=== PATIENT | female | born 1955 | race Caucasian/White ===

== ENCOUNTER 2025-02-16 09:03 | Outpatient (REF) | payer MEDICARE, BC, SELFPAY ==
--- OUTSIDE RECORDS SUMMARY | 2025-02-16 11:14 | XMS_ITS | Encounter Summary ---
Author Organization [facility] Address [address] [place] [address] Phone Care Team Providers Care Wound/Ostomy Nurse Name Role Phone Dhirajdevanazar Laurie Heart DO Primary Care Provider Jacquelin Long MD Primary Care Provider + Greg Castaneda DO Primary Care Provider [phone] Meagan Bowers MD Primary Care Provider [phone] Encounter Details Date Type Department Care Team (Latest Contact Info) Description 02/21/2023 Transcribe Orders Virtual Department [address] [place] [address] Jacquelin Long MD [address] [place], [place] [phone] [email or web address] Asymptomatic menopausal state (Primary Dx) Social History Tobacco Use Types Packs/Day Years Used Date Smoking Tobacco: Former Cigarettes 3 5 0 01/20/1977 - 01/20/1982 Smokeless Tobacco: Never Alcohol Use Standard Drinks/Week Comments Yes 2 (1 standard drink = 0.6 oz pur e alcohol) Education Answer Date Recorded Are you interested in more education? Not on anne e 10/07/2022 Are you concerned about learning? Not on file 10/07/2022 No 10/07/2022 No 10/07/2022 Digital Access Answer Date Recorded No 10/28/2022 No 10/28/2022 Reliable internet access at home? Not on file 10/28/2022 Device with a working camera? Not on file Comments No Sex and Gender Information Value Date Recorded Sex Assigned at Female 01/20/2019 12:37 PM EDT Legal Sex Female 12:43 PM EDT Gender Identity Female 01/20/2019 12:37 PM EDT Sexual Orientation Not on file documented as of this encounter Plan of Treatment Not on file documented as of this encounter Visit Diagnoses Diagnosis Asymptomatic menopausal state- Primary documented in this encounter Additional Health Concerns Infection Onset Date Last Indicated Resolved Time CoV-Risk 01/25/2024 01/25/2024 02/05/2024 1:22 AM EDT documented as of this encounter Care Teams Wound/Ostomy Nurse Relationship Specialty Start Date End Date Laurie Estrada DO [address] [place] [address] PCP - General Internal Medicine 12/24/16 10/14/23 Jacquelin Long MD [address] [place] [phone] [email or web address] PCP - General Family Medicine 10/15/23 08/12/24 Greg Castaneda DO [address] [place] [address] PCP - General Internal Medicine 08/13/24 09/18/24 Meagan Bowers MD [address] [place] [address] [email or web address] PCP - General Family Medicine 09/19/24 documented as of this encounter Additional Source Comments The information contained in this document represents components of the legal health record. It is not the complete legal health record.[facility]
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
--- OUTSIDE RECORDS SUMMARY | 2025-02-16 11:15 | XMS_ITS | Encounter Summary ---
Author Organization [facility] Address [address] [place] [phone] Phone Care Team Providers Care Shell Assembler Name Role Phone Meagan Bowers MD Primary Care Provider Encounter Details Date Type Department Care Team (Late st Contact Info) Description 09/19/2024 Procedure Pass [facility], Ct Scan - [address] [address] Social History Tobacco Use Types Packs/Day Years [...] your housing situation today? I have suresh avila 09/19/2024 How many times have you move [...] 12:16 AM EDT Verona Navarro RN * [place] Suicide Severity Rating Scale (Screener/Recent Self-Report) Question Answer Date of Assessment Author 1. Wish to be (Past 1 Month) No 09/19/2024 12:16 AM EDT Verona Navarro RN 2. Non-Specific Active Suici mitchell Thoughts (Past 1 Month) No 09/19/2024 12:16 AM EDT Andrade Navarro RN 6. Suicidal Behavior (Lifetime) No 12:16 AM EDT Verona Navarro RN documented as of this encounter Plan of Treatment Not on file documented as of this encounter Visit Diagnoses Not on filedocumented in this encounter Care Teams Shell Assembler Relationship Specialty Start Date End Date Meagan Bowers MD [address] [place] [phone] [email or web address] PCP - General Family Medicine 09/19/24 documented as of this encounter Additional Source Comments The information contained in this document represents components of the legal health record. It is not the complete legal health record.[facility]
--- OUTSIDE RECORDS SUMMARY | 2025-02-16 11:15 | XMS_ITS | Encounter Summary ---
Author Organization [facility] Address [address] [place] [address] [place] [address] Phone Care Team Providers Care Pump Room Operator Name Role Phone Jacquelin Long MD Primary Care Provider + Greg Castaneda DO Primary Care Provider [phone] Meagan Bowers MD Primary Care Provider Encounter Details Date Type Department Care Team (Latest Contact Info) Description 07/31/2024 Transcribe Orders [facility] Laboratory [address] [place] [address] [phone] Flor Fuller NP [address] [place], [place] [phone] [email or web address] Fatty liver (Primary Dx); Nonspecific abnormal results of liver function study; Iron deficiency anemia secondary to blood loss (chronic) Social History Tobacco Use Types Packs/Day Years [...] got money to buy more. Never True 10/15/2023 Within the past 6 months the food we bought just didn't last and we didn't have enough money to get more. Never True Digital Access Answer Date Recorded No 10/28/2022 No 10/28/2022 Reliable internet access at home? Not on file 10/28/2022 Device with a working camera? Not on file Intimate Partner Violence Answer Date R ecorded Are you denied basic needs s uch as food, clothing, or medical care? No 01/25/2024 In the past 12 months have y ou been in a relationship with a person who hurts, threatens, or tries to control you? No 01/25/2024 Are you denied basic needs s uch as food, clothing, or medical care? No 01/25/2024 In the past 12 months have y ou been in a relationship with a person who hurts, threatens, or tries to control you? No 01/25/2024 Comments No Sex and Gender Information Value Date Recorded Sex Assigned at Female 01/20/2019 12:37 PM EDT Legal Sex Female 12:43 PM EDT Gender Identity Female 01/20/2019 12:37 PM EDT Sexual Orientation Not on file documented as of this encounter Plan of Treatment Not on file documented as of this encounter Results * Phosphatidylethanol (07/31/2024 10:25 AM EST) PEth 16:0/18:1 (POPEth) by LC-MS/MS <10 Cutoff: 10 ng/mL [facility] Comment: (NOTE) Phosphatidylethanol (PEth) homologues result interpretation PEth 16:0/18:1 (POPEth) Less than 10 ng/mL: Not detected 10 - 19 ng/mL: Abstinence or light alcohol consumption (<2 drinks per day for several days a week) 20 - 200 ng/mL: Moderate alcohol consumption (up to 4 drinks per day for several days a week) Greater than 200 ng/mL: Heavy alcohol consumption or chronic alcohol use (at least 4 drinks per day several days a week) (Reference: Alpa Weeks and Janice Mathis 2018 J. Forensic Sci) PEth 16:0/18:2 (PLPEth) by LC-MS/MS <10 Cutoff: 10 ng/mL [facility] Comment: (NOTE) PEth 16:0/18:2 (PLPEth) Reference ranges are not well established PEth Interpretation Negative. [facility] Comment: (NOTE) ADDITIONAL INFORMATION This report is intended for use in clinical monitoring and management of patients. It is not intended for use in employment-related testing. This test was developed and its performance characteristics determined by [facility] in a manner consistent with CLIA requirements. This test has not been cleared or approved by the U.S. Food and Drug Administration. Blood 07/31/2024 10:2 5 AM EST 07/31/2024 10:34 AM EST Flor Fuller NP LAB BLOOD ORDERABLES Final Result [facility] [address] [place] [address] * (ABNORMAL) Vitamin B12 (07/31/2024 10:25 AM EST) Pathologist [facility] VITAMIN B12 1,563(H) 232 - 1,245 pg/mL [facility] Blood 07/31/2024 10:2 5 AM EST 07/31/2024 10:33 AM EST Flor Fuller NP LAB BLOOD ORDERABLES Final Result Performing Organization Address City/[facility]/ZIP Co de Phone Number [facility] [address] [place] [address] * PT-INR (07/31/2024 10:25 AM EST) Pathologist [facility] PT 10.4 10.2 - 12.9 sec [facility] INR 0.9 0.9 - 1.1 [facility] Comment:Therapeutic range fo r oral Vitamin K antagonists: 2.0-3.5 Blood 07/31/2024 10:2 5 AM EST 07/31/2024 10:33 AM EST Flor Fuller CHILD DEVELOPMENT PROFESSOR LAB BLOOD ORDERABLES Final Result Performing Organization Address City/[facility]/ZIP Co de Phone Number [address] [address] * (ABNORMAL) Ferritin (07/31/2024 10:25 AM EST) FERRITIN 403(H) 13 - 150 ug/L [facility] Blood 07/31/2024 10:2 5 AM EST 07/31/2024 10:33 AM EST Flor Fuller CHILD DEVELOPMENT PROFESSOR LAB BLOOD ORDERABLES Final Result Performing Organization Address [facility]/ZIP Co de Phone Number [address] [address] * (ABNORMAL) Folate (07/31/2024 10:25 AM EST) FOLIC ACID >20.0(H) 4.2 - 19.9 ng/mL [facility] Blood 07/31/2024 10:2 5 AM EST 07/31/2024 10:33 AM EST Flor Fuller CHILD DEVELOPMENT PROFESSOR LAB BLOOD ORDERABLES Final Result Performing Organization Address [facility]/ZIP Co de Phone Number [address] [address] * (ABNORMAL) Iron and iron binding capacity (07/31/2024 10:25 AM EST) IRON 155 30 - 160 ug/dL [facility] IRON BINDING CAPACITY 241 228 - 428 ug/dL [facility] TRANSFERRIN SATURAT. 64(H) 15 - 50 % [facility] Blood 07/31/2024 10:2 5 AM EST 07/31/2024 10:33 AM EST Flor Rodgers Jonny CHILD DEVELOPMENT PROFESSOR LAB BLOOD ORDERABLES Final Result Performing Organization Address [facility] Co de Phone Number [address] [address] * LFTs (hepatic panel) (07/31/2024 10:25 AM EST) ALKALINE PHOSPHATASE 96 39 - 117 U/L [facility] TOTAL BILIRUBIN 0.6 0.0 - 1.2 mg/dL [facility] DIRECT BILIRUBIN 0.2 0.0 - 0.2 mg/dL [facility] Bilirubin (Indirect) 0.4 0 - 1.5 mg/dL [facility] AST 36 0 - 37 U/L [facility] ALT 33 0 - 40 U/L [facility] TOTAL PROTEIN 7.7 6.5 - 8.0 g/dL [facility] ALBUMIN 4.0 3.9 - 4.8 g/dL [facility] GLOBULIN 3.7 1 - 4.8 g/dL [facility] A/G Ratio 1.08 1.00 - 4.80 RATIO [facility] Blood 07/31/2024 10:2 5 AM EST 07/31/2024 10:33 AM EST Flor Fuller CHILD DEVELOPMENT PROFESSOR LAB BLOOD ORDERABLES Final Result Performing Organization Address [facility] Co de Phone Number [address] [address] * (ABNORMAL) Liver fibrosis test (07/31/2024 10:25 AM EST) Fibrosis score 0.43 [facility] Interpretation (Fibrosis) SEE NOTE [facility] Comment: (NOTE) minimal fibrosis Fibro Test Score (f) Metavir Score f>=0 and f<=0.21 : F0 (no fibrosis) f>0.21 and f<=0.27 : F0-F1 (no fibrosis) f>0.27 and f<=0.31 : F1 (minimal fibrosis) f>0.31 and f<=0.48 : F1-F2 (minimal fibrosis) f>0.48 and f<=0.58 : F2 (moderate fibrosis) f>0.58 and f<=0.72 : F3 (advanced fibrosis) f>0.72 and f<=0.74 : F3-F4 (advanced fibrosis) f>0.74 and f<=1.00 : F4 (severe fibrosis) HCV Fibrosis Grade SEE NOTE Q [facility] Comment: (NOTE) Result: F1-F2 NECROINFLAMM SCORE 0.20 Q [facility] NECROINFLAMM GRADE SEE NOTE Q [facility] Comment: (NOTE) Result: A0-A1 NECROINFLAMM INTERP SEE NOTE [facility] [employer]/ [facility] Comment: (NOTE) no activity ActiTest Score (a) Metavir Score a>=0 and a<=0.17 : A0 (no activity) a>0.17 and a<=0.29 : A0-A1 (no activity) a>0.29 and a<=0.36 : A1 (minimal activity) a>0.36 and a<=0.52 : A1-A2 (minimal activity) a>0.52 and a<=0.60 : A2 (significant activity) a>0.60 and a<=0.62 : A2-A3 (significant activity) a>0.62 and a<=1.00 : A3 (severe activity) A2 Macroglobulin 285(H) 106 - 279 mg/dL [facility] Haptoglobin 123 43 - 212 mg/dL [facility] Apolipoprotein A1 140 101 - 198 mg/dL [facility] TOTAL BILIRUBIN 0.5 0.2 - 1.2 mg/dL [facility] GGT 24 3 - 65 U/L [facility] ALT 33(H) 6 - 29 U/L [facility] [employer]/ [facility] Specimen/Product ID [id number] [facility] [employer]/ [facility] Comments (Chemistry) SEE NOTE [facility]/ [facility] Comment: (NOTE) The reliability of results is dependent on compliance with the preanalytical and analytical conditions recommended by [employer]. The tests have to be deferred for: acute hemolysis, acute hepatitis, acute inflammation, extra hepatic cholestasis. The advice of a specialist should be sought for interpretation in chronic hemolysis and Gilbert's syndrome. The test interpretation is not validated in liver transplant patients. Isolated extreme values of one of the components should lead to caution in interpreting the results. In case of discordance between a biopsy result and a test, it is recommended to seek the advice of a specialist. The causes of these discordances could be due to a flaw of the test or to a flaw in the biopsy: i.e. a liver biopsy has a 33% variability rate for one fibrosis stage. FibroTest is interpretable for chronic hepatitis B and C, alcoholic and non alcoholic steatosis. ActiTest is interpretable for chronic hepatitis B and C. The performance characteristics have been determined by [facility]. It has not been cleared or approved by the U.S. Food and Drug Administration. Performance characteristics refer to the analytical performance of the test. The [employer], the associated logo, [employer] and all associated [employer] reyes are the registered trademarks of [employer]. All third republican reyes - (R) and (TM) - are the property of their respective owners. (C) 5090-5025 [employer]. All rights reserved. Blood 07/31/2024 10:2 5 AM EST 07/31/2024 10:34 AM EST Flor Fuller NP LAB BLOOD ORDERABLES Final Result [facility] [employer] [facility] [address] [place] [address], [facility] [phone] * (ABNORMAL) CBC and differential (07/31/2024 10:25 AM EST) WBC 5.34 4.00 - 11.00 K/uL [facility] RBC 4.67 4.00 - 5.20 M/uL [facility] HGB 14.6 12.0 - 16.0 g/dL [facility] HCT 41.8 36.0 - 46.0 % [facility] PLT 211 150 - 450 K/uL [facility] MCV 89.5 80.0 - 100.0 fL [facility] MCH 31.3(H) 27.0 - 31.0 pg [facility] MCHC 34.9 32.0 - 36.0 g/dL [facility] RDW 12.8 11.5 - 14.5 % [facility] MPV 10.1 8.4 - 12.0 fL [facility] NRBC 0.00 0.00 /100 WBCs [facility] ABSOLUTE NRBC 0.00 0.00 K/uL [facility] DIFF METHOD Auto [facility] NEUTS 68.4 48.0 - 76.0 % [facility] LYMPHS 24.9 18.0 - 41.0 % [facility] MONOS 5.4 4.0 - 11.0 % [facility] EOS 0.4 0.0 - 5.0 % [facility] BASOS 0.7 0.0 - 1.5 % [facility] Granulocytes, immature (%) 0.2 0.0 - 0.9 % [facility] ABSOLUTE NEUTS 3.65 1.92 - 7.60 K/uL [facility] ABSOLUTE LYMPHS 1.33 0.72 - 4.10 K/uL [facility] ABSOLUTE MONOS 0.29 0.16 - 1.10 K/uL [facility] ABSOLUTE EOS 0.02 0.00 - 0.50 K/uL [facility] ABSOLUTE BASOS 0.04 0.00 - 0.15 K/uL [facility] Granulocytes, immature 0.01 0.00 - 0.09 K/uL [facility] Blood 07/31/2024 10:2 5 AM EST 07/31/2024 10:33 AM EST us Flor Fuller NP LAB BLOOD ORDERABLES Final Result [facility] [address] [place] [address] documented in this encounter Visit Diagnoses Diagnosis Fatty liver- Primary Other chronic nonalcoholic liver disease Nonspecific abnormal results of liver function study Iron deficiency anemia secondary to blood loss (chronic) documented in this encounter Care Teams Pump Room Operator Relationship Specialty Start Date End Date Jacquelin Long MD [email or web address] PCP - General Family Medicine 10/15/23 08/12/24 Greg Castaneda DO [address] [place] [address] PCP - General Internal Medicine 08/13/24 09/18/24 Meagan Bowers MD [address] [place] [address] [email or web address] PCP - General Family Medicine 09/19/24 documented as of this encounter Additional Source Comments The information contained in this document represents components of the legal health record. It is not the complete legal health record.[facility]
--- OUTSIDE RECORDS SUMMARY | 2025-02-16 11:15 | XMS_ITS | Encounter Summary ---
Author Organization [facility] Address [address] [place] [address] Phone Care Team Providers Care Sock Drier Name Role Phone Laurie Estrada DO Primary Care Provider [phone] Laurie Estrada DO Unavailable Jacquelin Long MD Primary Care Provider + Greg Castaneda DO Primary Care Provider [phone] Meagan Bowers MD Primary Care Provider Encounter Details Date Type Department Care Team (Latest Contact Info) Description 09/09/2017 Transcribe Orders [facility] 10 [facility] 2nd [place] [address] Bolivar Arteaga MD [address] [address] [email or web address] Lower GI bleeding (Primary Dx) Social History Tobacco Use Types Packs/Day Years Used Date Smoking Tobacco: Never Comments Unknown Sex and Gender Information Value Date Recorded Sex Assigned at Female 01/20/2019 12:37 PM EDT Legal Sex Female 12:43 PM EDT Gender Identity Female 01/20/2019 12:37 PM EDT Sexual Orientation Not on file documented as of this encounter Plan of Treatment Not on file documented as of this encounter Results * Ferritin (09/09/2017 3:14 PM EDT) FERRITIN 21 13 - 150 ug/L [facility] Blood 09/09/2017 3:14 PM EDT 09/09/2017 3:18 PM EDT us Bolivar Arteaga MD LAB BLOOD ORDERABLES Final R esult [address] [address] * (ABNORMAL) Iron and iron binding capacity (09/09/2017 3:14 PM EDT) IRON 33 30 - 160 ug/dL [facility] IRON BINDING CAPACITY 510(H) 228 - 428 ug/dL [facility] TRANSFERRIN SATURAT. 6(L) 15 - 50 % [facility] Blood 09/09/2017 3:14 PM EDT 09/09/2017 3:18 PM EDT us Bolivar Arteaga MD LAB BLOOD ORDERABLES Final R esult [address] [address] * (ABNORMAL) CBC and differential (09/09/2017 3:14 PM EDT) WBC 4.63 3.40 - 11.20 K/uL [facility] RBC 3.54(L) 3.80 - 4.80 M/uL [facility] HGB 10.5(L) 12.0 - 15.0 g/dL [facility] HCT 32.5(L) 36.0 - 46.0 % [facility] PLT 248 130 - 400 K/uL [facility] MCV 91.8 79.0 - 98.0 fL [facility] MCH 29.7 27.0 - 34.8 pg [facility] MCHC 32.3 31.5 - 36.0 g/dL [facility] RDW 13.5 10.8 - 14.6 % [facility] MPV 10.0 9.4 - 12.4 fl [facility] NRBC 0.00 /100 WBCs [facility] ABSOLUTE NRBC 0.00 K/uL [facility] DIFF METHOD Auto [facility] NEUTS 59.9 45.30 - 77.70 % [facility] LYMPHS 30.2 12.30 - 39.70 % [facility] MONOS 8.2 4.10 - 12.80 % [facility] EOS 1.1 0 - 7.2 % [facility] BASOS 0.6 0 - 2.80 % [facility] Granulocytes, immature (%) 0.0 0.0 - 0.9 % [facility] ABSOLUTE NEUTS 2.77 1.40 - 7.70 K/uL [facility] ABSOLUTE LYMPHS 1.40 0.60 - 3.20 K/uL [facility] ABSOLUTE MONOS 0.38 0.11 - 0.59 K/uL [facility] ABSOLUTE EOS 0.05 0.01 - 0.50 K/uL [facility] ABSOLUTE BASOS 0.03 0.00 - 0.08 K/uL [facility] Granulocytes, immature 0.00 0.00 - 0.05 K/uL [facility] Blood 09/09/2017 3:14 PM EDT 09/09/2017 3:18 PM EDT us Bolivar Arteaga MD LAB BLOOD ORDERABLES Final R esult Performing Organization Address City/State/[facility] Co de Phone Number [facility] [address] [place] [address] documented in this encounter Visit Diagnoses Diagnosis Lower GI bleeding- Primary Unspecified, hemorrhage of gastrointestinal tract documented in this encounter Additional Health Concerns Infection Onset Date Last Indicated Resolved Time CoV-Risk 01/25/2024 01/25/2024 02/05/2024 1:22 AM EDT documented as of this encounter Care Teams Sock Drier Relationship Specialty Start Date End Date Laurie Estrada DO [address] [place] [phone] PCP - General Internal Medicine 12/24/16 10/14/23 Jacquelin Long MD [address] [place] [address] [place] [address] [email or web address] PCP - General Family Medicine 10/15/23 08/12/24 Greg Castaneda DO [address] [place] [address] PCP - General Internal Medicine 08/13/24 09/18/24 Meagan Bowers MD [address] [place] [address] [email or web address] PCP - General Family Medicine 09/19/24 Laurie Estrada DO [address] [place] [address] [place] [address] Insurance Assigned Provider 10/05/17 02/07/19 documented as of this encounter Additional Source Comments The information contained in this document represents components of the legal health record. It is not the complete legal health record.[facility]
--- OUTSIDE RECORDS SUMMARY | 2025-02-16 11:15 | XMS_ITS | Encounter Summary ---
Author Organization [facility] Address [address] [facility] [address] [place] [address] Phone Care Team Providers Care Victims Advocate Clerk/Specialist Name Role Phone Jacquelin Long MD Primary Care Provider + Greg Castaneda DO Primary Care Provider [phone] Meagan Bowers MD Primary Care Provider Encounter Details Date Type Department Care Team (Late st Contact Info) Description 12/28/2023 Procedure Pass [facility] Endoscopy Admitting Dept Virtual Department [address] [place], [place] [phone] Social History Tobacco Use Types Packs/Day Years Used Date Smoking Tobacco: Former Cigarettes 3 5 0 01/20/1977 - 01/20/1982 Smokeless Tobacco: Never Alcohol Use Standard Drinks/Week Comments Yes 2 (1 standard drink = 0.6 oz pur e alcohol) Home Health Assessment: Transportation Answer Date Recorded Lack of Transportation (Medical) No 12/31/2023 Lack of Transportation (Non-Medical) No 12/31/2023 Patient Unable or Declines to Respond No 12/31/2023 Education Answer Date Recorded Are you interested [...] documented as of this encounter Care Teams Victims Advocate Clerk/Specialist Relationship Specialty Start Date End Date Jacquelin Long MD [email or web address] PCP - General Family Medicine 10/15/23 08/12/24 Greg Castaneda DO [address] [place] [address] PCP - General Internal Medicine 08/13/24 09/18/24 Meagan Bowers MD [address] [place] [address] [email or web address] PCP - General Family Medicine 09/19/24 documented as of this encounter Additional Source Comments The information contained in this document represents components of the legal health record. It is not the complete legal health record.[facility]
--- OUTSIDE RECORDS SUMMARY | 2025-02-16 11:15 | XMS_ITS | Encounter Summary ---
Author Organization [facility] Address [address] [facility] [address] [place] [address] Phone Care Team Providers Care Offal Baler Name Role Phone Meagan Bowers MD Primary Care Provider Encounter Details Date Type Department Care Team (Late st Contact Info) Description 09/21/2024 Procedure Pass [place] Admitting Dept - Virtual Department [address] [place] [address] Social History Tobacco Use Types Packs/Day Years [...] on filedocumented in this encounter Care Teams Offal Baler Relationship Specialty Start Date End Date Meagan Bowers MD [address] [place] [address] PCP - General Family Medicine 09/19/24 documented as of this encounter Additional Source Comments The information contained in this document represents components of the legal health record. It is not the complete legal health record.[facility]
--- OUTSIDE RECORDS SUMMARY | 2025-02-16 11:15 | XMS_ITS | Encounter Summary ---
Author Organization [facility] Address [address] [facility] [address] [place] [address] Phone Care Team Providers Care Line Production Cook Name Role Phone Jacquelin Long MD Primary Care Provider + Greg Castaneda DO Primary Care Provider [phone] Meagan Bowers MD Primary Care Provider Encounter Details Date Type Department Care Team (Late st Contact Info) Description 12/28/2023 Procedure Pass [facility], Ct Scan - [address] [phone] Social History Tobacco Use Types Packs/Day Years [...] documented as of this encounter Care Teams Line Production Cook Relationship Specialty Start Date End Date Jacquelin Long MD [email or web address] PCP - General Family Medicine 10/15/23 08/12/24 Greg Castaneda DO [address] [place] [address] PCP - General Internal Medicine 08/13/24 09/18/24 Meagan Bowers MD [address] [place] [address] [email or web address] PCP - General Family Medicine 09/19/24 documented as of this encounter Additional Source Comments The information contained in this document represents components of the legal health record. It is not the complete legal health record.[facility]
--- OUTSIDE RECORDS SUMMARY | 2025-02-16 11:15 | XMS_ITS | Encounter Summary ---
Author Organization [facility] Address [address] [place] [address] Phone Care Team Providers Care Hospital Chief Executive Officer Name Role Phone Laurie Estrada DO Primary Care Provider Laurie Estrada DO Unavailable [phone] Jacquelin Long MD Primary Care Provider + Greg Castaneda DO Primary Care Provider Meagan Bowers MD Primary Care Provider Encounter Details Date Type Department Care Team (Latest Contact Info) Description 01/20/2019 Transcribe Orders Virtual Department 30 [place] [address] Laurie Estrada DO [address] [place] [address] [email or web address] Intra-abdominal and pelvic swelling, mass and lump, unspecified site (Primary Dx) Social History Tobacco Use Types Packs/Day Years Used Date Smoking Tobacco: Former Cigarettes 3 5 0 01/20/1977 - 01/20/1982 Smokeless Tobacco: Never Alcohol Use Standard Drinks/Week Comments Not Currently 7 (1 standard drink = 0.6 oz pur e alcohol) Comments Unknown Sex and Gender Information Value Date Recorded Sex Assigned at Female 01/20/2019 12:37 PM EDT Legal Sex Female 12:43 PM EDT Gender Identity Female 01/20/2019 12:37 PM EDT Sexual Orientation Not on file documented as of this encounter Plan of Treatment Not on file documented as of this encounter Visit Diagnoses Diagnosis Intra-abdominal and pelvic swelling, mass and lump, unspecified site- Primary documented in this encounter Additional Health Concerns Infection Onset Date Last Indicated Resolved Time CoV-Risk 01/25/2024 01/25/2024 02/05/2024 1:22 AM EDT documented as of this encounter Care Teams Hospital Chief Executive Officer Relationship Specialty Start Date End Date Laurie Estrada DO [address] [place] [address] PCP - General Internal Medicine 12/24/16 10/14/23 [place] [address] [email or web address] PCP - General Family Medicine 10/15/23 08/12/24 Greg Castaneda DO [address] [place] [address] PCP - General Internal Medicine 08/13/24 09/18/24 Meagan Bowers MD [address] [place] [address] [email or web address] PCP - General Family Medicine 09/19/24 [place] [address] Insurance Assigned Provider 10/05/17 02/07/19 documented as of this encounter Additional Source Comments The information contained in this document represents components of the legal health record. It is not the complete legal health record.[facility]
--- OUTSIDE RECORDS SUMMARY | 2025-02-16 11:15 | XMS_ITS | Encounter Summary ---
Author Organization [facility] Address [address] [place] [address] Phone Care Team Providers Care Rides Supervisor Name Role Phone Laurie Estrada DO Primary Care Provider [phone] Jacquelin Long MD Primary Care Provider + Greg Castaneda DO Primary Care Provider Meagan Bowers MD Primary Care Provider Encounter Details Date Type Department Care Team (Late st Contact Info) Description 11/24/2021 Procedure Pass [facility] Endoscopy Admitting Dept Virtual Department 30 [place], [place] [phone] Social History Tobacco Use Types Packs/Day Years Used Date Smoking Tobacco: Former Cigarettes 3 5 0 01/20/1977 - 01/20/1982 Smokeless Tobacco: Never Alcohol Use Standard Drinks/Week Comments Yes 2 (1 standard drink = 0.6 oz pur e alcohol) Comments No Sex and Gender Information Value [...] documented as of this encounter Care Teams Rides Supervisor Relationship Specialty Start Date End Date Laurie Estrada DO [address] [place] [address] PCP - General Internal Medicine 12/24/16 10/14/23 Jacquelin Long MD [address] [place] [address] [email or web address] PCP - General Family Medicine 10/15/23 08/12/24 Greg Castaneda DO [address] [place] [address] PCP - General Internal Medicine 08/13/24 09/18/24 Meagan Bowers MD [address] [place] [address] [email or web address] PCP - General Family Medicine 09/19/24 documented as of this encounter Additional Source Comments The information contained in this document represents components of the legal health record. It is not the complete legal health record.[facility]
--- OUTSIDE RECORDS SUMMARY | 2025-02-16 11:15 | XMS_ITS | Encounter Summary ---
Author Organization [facility] Address [address] [place] [address] Phone Care Team Providers Care Chief Engineer Waterworks Name Role Phone Laurie Estrada DO Primary Care Provider [phone] Laurie Estrada DO Unavailable [phone] Jacquelin Long MD Primary Care Provider + Greg Castaneda DO Primary Care Provider Meagan Bowers MD Primary Care Provider Encounter Details Date Type Department Care Team (Late st Contact Info) Description 01/21/2019 Procedure Pass [facility] Endoscopy Admitting Dept Virtual Department 30 [place] [address] Social History Tobacco Use Types Packs/Day Years [...] documented as of this encounter Care Teams Chief Engineer Waterworks Relationship Specialty Start Date End Date Laurie Estrada DO [address] [place] [address] PCP - General Internal Medicine 12/24/16 10/14/23 Jacquelin Long MD [address] [place] [address] [place] [address] [email or web address] PCP - General Family Medicine 10/15/23 08/12/24 Greg Castaneda DO [address] [place] [address] PCP - General Internal Medicine 08/13/24 09/18/24 Meagan Bowers MD [address] [place] [address] [email or web address] PCP - General Family Medicine 09/19/24 Laurie Estrada DO [address] [place] [address] [place] [address] Insurance Assigned Provider 10/05/17 02/07/19 documented as of this encounter Additional Source Comments The information contained in this document represents components of the legal health record. It is not the complete legal health record.[facility]
--- OUTSIDE RECORDS SUMMARY | 2025-02-16 11:15 | XMS_ITS | Encounter Summary ---
Author Organization [facility] Address [address] [place] [address] Phone Care Team Providers Care Hospital Chaplain Name Role Phone Laurie Estrada DO Primary Care Provider [phone] Laurie Estrada DO Unavailable [phone] Jacquelin Long MD Primary Care Provider + Greg Castaneda DO Primary Care Provider Meagan Bowers MD Primary Care Provider [phone] Encounter Details Date Type Department Care Team (Late st Contact Info) Description 10/11/2017 Procedure Pass [facility] Endoscopy Admitting Dept [facility] Department [address] [place] [address] Social History Tobacco Use Types Packs/Day Years Used Date Smoking Tobacco: Never Smokeless Tobacco: Never Alcohol Use Standard Drinks/Week Comments Yes 7 (1 standard drink = 0.6 oz [...] as of this encounter Care Teams Hospital Chaplain Relationship Specialty Start Date End Date Laurie Estrada DO [address] [place] [address] PCP - General Internal Medicine 12/24/16 10/14/23 Jacquelin Long MD [address] [place] [address] [place] [address] [email or web address] PCP - General Family Medicine 10/15/23 08/12/24 Greg Castaneda DO [address] [place] [address] PCP - General Internal Medicine 08/13/24 09/18/24 Meagan Bwoers MD [address] [place] [address] [email or web address] PCP - General Family Medicine 09/19/24 Laurie Estrada DO [address] [place] [address] [place] [address] Insurance Assigned Provider 10/05/17 02/07/19 documented as of this encounter Additional Source Comments The information contained in this document represents components of the legal health record. It is not the complete legal health record.[facility]
--- OUTSIDE RECORDS SUMMARY | 2025-02-16 11:15 | XMS_ITS | Encounter Summary ---
Author Organization [facility] Address [address] [place] [address] Phone Care Team Providers Care Efficiency Miner Name Role Phone Laurie Estrada DO Primary Care Provider [phone] Laurie Estrada DO Unavailable [phone] Jacquelin Long MD Primary Care Provider + Greg Castaneda DO Primary Care Provider Meagan Bowers MD Primary Care Provider Encounter Details Date Type Department Care Team (Latest Contact Info) Description 12/30/2017 Transcribe Orders [facility] [address] [facility] 2nd [place] [address] Bolivar Arteaga MD [address] [address] [email or web address] Hx of colonic polyps (Primary Dx) Social History Tobacco Use Types [...] as of this encounter Visit Diagnoses Diagnosis Hx of colonic polyps- Primary Personal history of colonic polyps documented in this encounter Additional Health Concerns Infection Onset Date Last Indicated Resolved Time CoV-Risk 01/25/2024 01/25/2024 02/05/2024 1:22 AM EDT documented as of this encounter Care Teams Efficiency Miner Relationship Specialty Start Date End Date Laurie Estrada DO [address] [place] [address] PCP - General Internal Medicine 12/24/16 10/14/23 [place] [address] [email or web address] PCP - General Family Medicine 10/15/23 08/12/24 Greg Castaneda DO [address] [place] [address] PCP - General Internal Medicine 08/13/24 09/18/24 Meagan Bowers MD [address] [place] [address] [email or web address] PCP - General Family Medicine 09/19/24 [place] [address] Insurance Assigned Provider 10/05/17 02/07/19 documented as of this encounter Additional Source Comments The information contained in this document represents components of the legal health record. It is not the complete legal health record.[facility]
--- OUTSIDE RECORDS SUMMARY | 2025-02-16 11:15 | XMS_ITS | Encounter Summary ---
Author Organization [facility] Address [address] [facility] [address] [place] [address] Phone Care Team Providers Care Scourer Name Role Phone Jacquelin Long MD Primary Care Provider + Greg Castaneda DO Primary Care Provider [phone] Meagan Bowers MD Primary Care Provider Encounter Details Date Type Department Care Team (Late st Contact Info) Description 12/29/2023 Procedure Pass [facility] Endoscopy Admitting Dept Virtual Department 30 [place], [place] [phone] Social History Tobacco Use Types Packs/Day Years [...] documented as of this encounter Care Teams Scourer Relationship Specialty Start Date End Date Jacquelin Long MD [email or web address] PCP - General Family Medicine 10/15/23 08/12/24 Greg Castaneda DO [address] [place] [address] PCP - General Internal Medicine 08/13/24 09/18/24 Meagan Bowers MD [address] [place] [address] [email or web address] PCP - General Family Medicine 09/19/24 documented as of this encounter Additional Source Comments The information contained in this document represents components of the legal health record. It is not the complete legal health record.[facility]
--- OUTSIDE RECORDS SUMMARY | 2025-02-16 11:15 | XMS_ITS | Encounter Summary ---
Author Organization [facility] Address [address] [facility] [address] [place] [address] Phone Care Team Providers Care Tool Machine Setup Operator Name Role Phone Natalie aLurie Heart DO Primary Care Provider Jacquelin Long MD Primary Care Provider + Greg Castaneda DO Primary Care Provider Meagan Bowers MD Primary Care Provider Encounter Details Date Type Department Care Team (Late st Contact Info) Description 12/02/2019 Transcribe Orders [facility] Specimen Processing [address] [place] [address] Juana Wells MD [address] [place], [place] [phone] Social History Tobacco Use Types Packs/Day Years [...] documented as of this encounter Care Teams Tool Machine Setup Operator Relationship Specialty Start Date End Date Laurie Estrada DO [address] [place] [address] PCP - General Internal Medicine 12/24/16 10/14/23 Jacquelin Long MD [address] [place] [address] [email or web address] PCP - General Family Medicine 10/15/23 08/12/24 Greg Castaneda DO [address] [place] [address] PCP - General Internal Medicine 08/13/24 09/18/24 Meagan Bowers MD [address] [place] [address] [email or web address] PCP - General Family Medicine 09/19/24 documented as of this encounter Additional Source Comments The information contained in this document represents components of the legal health record. It is not the complete legal health record.[facility]
--- OUTSIDE RECORDS SUMMARY | 2025-02-16 11:15 | XMS_ITS | Clinical Summary ---
Author Organization [facility] Address [address] [place] [address] Phone Care Team Providers Care Bone Char Puller Name Role Phone Meagan Bowers MD Primary Care Provider [phone] Allergies Active Allergy Reactions Criticality Noted Date Comments Codeine GI Upset Medium 09/11/2011 Meclizine Other (See Comments) Medium 09/11/2011 Dizziness, rash Medroxyprogesterone Anaphylaxis High 09/11/2011 Nystatin 10/14/2023 Apremilast Diarrhea High 11/23/2021 Severe depression Other 10/14/2023 Rest leg med pramoprexal Simvastatin Rash Low 01/20/2019 Difpzks-Nmu-Kqu Reductase Inhibitors Myalgia High 09/19/2024 Medications atenolol (TENORMIN) 50 mg tablet Take 50 mg by mouth daily. Active gabapentin (NEURONTIN) 300 MG capsule Take 300 mg by mouth daily. At noon Active vitamin A palmitate 15,000 unit Tab Take 1 tablet by mouth every other day. Active lutein 6 mg Cap Take 12 mg by mouth every other day. Active ferrous sulfate 324 mg (65 mg [place] iron) TbEC Take 324 mg by mouth daily with breakfast. Active risankizumab-rza a 150 mg/mL PnIjIndications: moderate to severe plaque psoriasis,Every 3 to 4 months Inject under the skin. Indications: moderate to severe plaque psoriasis, Every 3 to 4 months Active acetaminophen (TYLENOL) 325 mg tablet Take 2 tablets (650 mg total) by mouth every 6 (six) hours as needed. 0 10/15/19 24 Active cyanocobalamin, vitamin B-12, 1000 MCG tablet Take 1 tablet (1,000 mcg total) by mouth daily. 30 tablet 3 12/30/19 24 Active pantoprazole (PROTONIX) 40 MG tablet Take 1 tablet (40 mg total) by mouth 2 (two) times a day. X 4 weeks then daily 60 tablet 5 12/30/19 24 Active magnesium chloride (SLOW-MAG) 596 mg (71.5 mg elemental) TbEC Take 596 mg by mouth daily. Active rOPINIRole (REQUIP) 0.25 MG tablet Take 0.25 mg by mouth nightly at bedtime. 09/12/19 25 Active insulin glargine-yfgn (SEMGLEE) 100 unit/mL (3 mL) subcutaneous pen Inject 10 Units under the skin nightly at bedtime. 09/16/19 Active metFORMIN (GLUCOPHAGE-XR) 500 MG 24 hr tablet Take 500 mg by mouth daily with breakfast. 09/15/19 25 Active aluminum-magnesi um hydroxide-simeth icone (MAALOX) 200-200-20 mg/5 mL Susp Take 30 mL by mouth every 6 (six) hours as needed (Reflux). 09/26/19 Active Additional Information Patient not taking.Reported on 10/08/2024 docusate sodium (COLACE) 100 MG capsule Take 1 capsule (100 mg total) by mouth 2 (two) times a day. 09/26/19 Active prochlorperazine (COMPAZINE) [address] 1 suppository (25 mg total) rectally every 12 (twelve) hours as needed for nausea. 12 suppository 1 09/27/19 Active Additional Information Patient not taking.Reported on 10/08/2024 Active Problems Problem Noted Date Diagnosed Date Urine retention 09/24/2024 Assessment & Plan (09/24/2024 5:06 PM EDT): Continue with intermittent straight cath for now, hopeful that once bowels are moving more and she is mobilizing and needing less pain medication the urine retention will improve Psoriasis 09/23/2024 Assessment & Plan (09/24/2024 5:07 PM EDT): She gets injection of risankizumab IL 23 inhibitor 3 to 4 months in the outpatient setting prescribed by Dr. Wells. Does increased the risk of infection. Assessment & Plan (09/23/2024 3:16 PM EDT): She gets injection of risankizumab IL 23 inhibitor 3 to 4 months in the outpatient setting prescribed by Dr. Wells. Does increased the risk of infection. Leukopenia 09/21/2024 Assessment & Plan (09/24/2024 5:07 PM EDT): Appears she has had intermittent leukopenia for several years and this can be further evaluated in the outpatient setting Assessment & Plan (09/23/2024 3:16 PM EDT): Appears she has had intermittent leukopenia for several years and this can be further evaluated in the outpatient setting Assessment & Plan (09/22/2024 5:42 PM EDT): Appears she has had intermittent leukopenia for several years and this can be further evaluated in the outpatient setting Assessment & Plan (09/21/2024 4:25 PM EDT): Appears she has had intermittent leukopenia for several years and this can be further evaluated in the outpatient setting Small bowel obstruction 09/19/2024 Assessment & Plan (09/24/2024 5:06 PM EDT): She reported constipation recently but then developed nausea the day prior to presentation and then developed vomiting with no further bowel movements At presentation she was evaluated with a CT of the abdomen pelvis which showed a small bowel obstruction with a transition point in the left lower quadrant felt likely due to adhesions (she had a history of a previous sigmoid colectomy She was initially treated with conservative therapy bowel rest IV fluid support and NG decompression, she was administered Gastrografin on 09/20 but she did not improve On 09/21 laparoscopic diagnostic and laparoscopic lysis of adhesions performed by Dr. Parsons 09/23 NG tube was removed and Dr. Obrien has recommended trying sips of clears Pain control with acetaminophen and IV morphine and will add oral oxycodone to try 09/24 NG is out she is taking some oral intake advance to solid food but oral intake remains poor, nutrition starting PPN, change the rest of her meds to oral so that she can make do with the 1 IV as she does not want another placed Dr. Obrien recommends mobilizing and advancing diet and she reduce the Colace and trying to use the opioids sparingly Assessment & Plan (09/23/2024 3:42 PM EDT): She reported constipation recently but then developed nausea the day prior to presentation and then developed vomiting with no further bowel movements At presentation she was evaluated with a CT of the abdomen pelvis which showed a small bowel obstruction with a transition point in the left lower quadrant felt likely due to adhesions (she had a history of a previous sigmoid colectomy She was initially treated with conservative therapy bowel rest IV fluid support and NG decompression, she was administered Gastrografin on 09/20 but she did not improve On 09/21 laparoscopic diagnostic and laparoscopic lysis of adhesions performed by Dr. Parsons 09/23 NG tube was removed and Dr. Obrien has recommended trying sips of clears Pain control with acetaminophen and IV morphine and will add oral oxycodone to try - IV magnesium repletion for hypomagnesemia - Bicarb is mildly decreased pH on 09/22 VBG was acceptable If worsening can repeat VBG + check lactate + and check urine for ketones but would hold off for now repeat BMP tomorrow morning Assessment & Plan (09/22/2024 5:42 PM EDT): She reported constipation recently but then developed nausea the day prior to presentation and then developed vomiting with no further bowel movements At presentation she was evaluated with a CT of the abdomen pelvis which showed a small bowel obstruction with a transition point in the left lower quadrant felt likely due to adhesions (she had a history of a previous sigmoid colectomy She was initially treated with conservative therapy bowel rest IV fluid support and NG decompression, she was administered Gastrografin on 09/20 but she did not improve On 09/21 laparoscopic diagnostic and laparoscopic lysis of adhesions performed by Dr. Parsons Postoperative care as per the surgical team - continue to drainage, prophylactic PPI, IV opioid pain medication and antiemetic with ondansetron Assessment & Plan (09/21/2024 4:25 PM EDT): She reported constipation recently but then developed nausea the day prior to presentation and then developed vomiting with no further bowel movements At presentation she was evaluated with a CT of the abdomen pelvis which showed a small bowel obstruction with a transition point in the left lower quadrant felt likely due to adhesions (she had a history of a previous sigmoid colectomy She was initially treated with conservative therapy bowel rest IV fluid support and NG decompression, she was administered Gastrografin on 09/20 but she did not improve On 09/21 laparoscopic diagnostic and laparoscopic lysis of adhesions performed by Dr. Parsons Postoperative care as per the surgical team - Anticipate will continue to drainage, prophylactic PPI, IV opioid pain medication and antiemetic with ondansetron -Resume enoxaparin DVT prophylaxis approved by the surgeon Assessment & Plan (09/20/2024 9:15 PM EDT): Has pain medication available Continue IV fluid hydration Surgery is following and 09/20 Gastrografin - cont NG drainage and zofran Adhesions related to sigmoid colectomy suspected Assessment & Plan (09/19/2024 5:54 PM EDT): Nausea vomiting seems improved with NG drainage and zofran Has pain medication available Continue IV fluid hydration Surgery is following and considering Gastrografin Adhesions related to sigmoid colectomy suspected Assessment & Plan (09/19/2024 4:38 AM EDT): Will give IV fluids, bowel rest and pain medications. Has had multiple doses of Zofran and is still vomiting. Will have an NG tube placed to suction. ED discussed the case with general surgery who will follow in consultation. Delirium 12/29/2023 Assessment & Plan (12/29/2023 4:08 PM EDT): She is having mild confusion and restlessness this afternoon. Appearance suggest acute delirium and concerning for possible EtOH withdrawal --Spoke with leighann today who confirms that she had been consuming wine, roughly 1/2 bottle daily since hospitalization at [facility] [place]. She has no prior history of withdrawal and other factors could be contributing to delirium including hospitalization, disrupted sleep cycles, GI procedure etc. -- Start CIWA protocol and as needed lorazepam. If she develops more concerning signs or symptoms of EtOH withdrawal, may consider barbital load -- MVI, thiamine and folate replacement B12 deficiency 12/28/2023 Assessment & Plan (12/28/2023 2:37 PM EDT): Will start injections 1000 mg IM daily until discharge Macrocytic anemia 12/28/2023 Assessment & Plan (12/29/2023 4:06 PM EDT): She has acute anemia and probably a chronic element. GI bleeding likely causing acute blood loss and drop in H/H. She also has low vitamin B12 levels and a macrocytosis. Folic acid level okay. H/H significantly improved after transfusion 2 unit PRBC iron studies do not suggest deficiency. -- Continue laboratory surveillance, vitamin B12 replacement Abnormal LFTs 12/28/2023 Assessment & Plan (12/29/2023 4:10 PM EDT): Previous labs have shown a mild transaminitis. She also has a pancytopenia. In her history of EtOH consumption this raises the specter of EtOH liver disease/cirrhosis. Low vitamin B12 may also be contributing to her pancytopenia CT abdomen/pelvis showing fatty liver, large hiatal hernia, pancreatic divisum and diffusely prominent pancreatic duct Hepatitis serologies showed positive hep B surface antibody (c/w immunization), otherwise nonreactive -- Patient will be counseled on EtOH cessation. Will continue to monitor labs Upper GI bleed 12/27/2023 Assessment & Plan (12/29/2023 4:04 PM EDT): Presented to the ED with nausea, vomiting, coffee-ground emesis. She had diarrhea with melena on the day of presentation as well Initial labs showed a hemoglobin 10.4 down from a baseline of 14.7. EGD was performed showing a medium size hiatal hernia with Enoc ulcers which may be the cause. She has been started on a twice daily PPI. On 12/27 H/H dropped to 6.4/18.8. She was given 2 units PRBC with improvement. No new concerns for bleeding --Continue Protonix 40 mg BID -- Diet as tolerated --Daily CBC Burn (any degree) involving 10-19% of body surfa ce 10/15/2023 Left knee pain 02/03/2019 GI bleed 01/27/2019 Chronic gastric ulcer with hemorrhage 01/21/2019 Iron deficiency anemia due to chronic blood loss 01/20/2019 Assessment & Plan (01/22/2019 10:01 AM EDT): Hemoglobin stable at 7.4 2. Continues to have black or grayish stool output, but given that her hemoglobin has remained stable I suspect that this is old blood being cleared from the GI tract. Overall she is feeling well having received 3 units PRBCs, although patient remains frustrated that no definitive source of the bleeding has been identified so far. CT abdomen and pelvis showed no evidence for infection, diverticulosis noted and this is a chronic problem for the patient. No evidence for diverticulitis. Plan to continue with colonoscopy this morning. Patient's stools not officially cleared yet, but hopefully preparation is adequate for visualization of the colon. Patient refusing IV iron infusion. Prior to signing this note, patient is adamant that she would like to leave because she thinks they won't be able to see anything on the colonoscopy. Reassurance given and will coordinate with GI and get further recommendations. Essential hypertension 01/20/2019 Assessment & Plan (09/24/2024 5:07 PM EDT): Resumed atenolol on 09/21 blood pressures are elevated would hold off adding any additional medication today but will continue to monitor Assessment & Plan (09/23/2024 3:16 PM EDT): Resumed atenolol on 09/21 blood pressures are elevated would hold off adding any additional medication today but will continue to monitor Assessment & Plan (09/22/2024 5:42 PM EDT): Resumed atenolol on 09/21 Assessment & Plan (09/21/2024 4:25 PM EDT): Resumed atenolol on 09/21 this will be continued if she can tolerate clamping the tube after administration -If needed can use IV metoprolol or enalaprilat Assessment & Plan (09/20/2024 9:15 PM EDT): Goal is held for now blood pressure is acceptable. Assessment & Plan (09/19/2024 5:54 PM EDT): Goal is held for now blood pressure is acceptable. Assessment & Plan (09/19/2024 4:38 AM EDT): Hemodynamically stable. Continue home medications. Assessment & Plan (12/29/2023 4:05 PM EDT): At the time presentation had hypotension with a BP of 80/60, BP improved after fluids and now rising -Resume atenolol Assessment & Plan (01/20/2019 6:40 PM EDT): Patient with a history of HTN on atenolol and triamterene-hydrochlorothiazide. Continue medication as prescribed. Restless leg syndrome 01/20/2019 Assessment & Plan (12/27/2023 5:13 PM EDT): -Continue oxycodone nightly Assessment & Plan (01/20/2019 7:03 PM EDT): The patient has a history of restless leg syndrome managed with gabapentin 300 mg twice daily, pramipexole 0.50 mg at bedtime, and clonazepam 2 mg daily at bedtime. Continue medications as prescribed. Type 2 diabetes mellitus 01/20/2019 Assessment & Plan (09/24/2024 5:06 PM EDT): Recently started on metformin which is held for now and low-dose insulin glargine. - Now that she is eating would start increasing basal bolus insulin as blood sugars are above goal of urine Assessment & Plan (09/23/2024 3:16 PM EDT): Recently started on metformin which is held for now and low-dose insulin glargine. Continue lispro as needed. In the setting of being n.p.o. she is only receiving short acting insulin for now and blood glucoses are acceptable we will adjust as needed postoperatively Assessment & Plan (09/22/2024 5:42 PM EDT): Recently started on metformin which is held for now and low-dose insulin glargine. Continue lispro as needed. In the setting of being n.p.o. she is only receiving short acting insulin for now and blood glucoses are acceptable we will adjust as needed postoperatively Assessment & Plan (09/21/2024 4:25 PM EDT): Recently started on metformin which is held for now and low-dose insulin glargine. Continue lispro as needed. In the setting of being n.p.o. she is only receiving short acting insulin for now and blood glucoses are acceptable we will adjust as needed postoperatively Assessment & Plan (09/20/2024 9:15 PM EDT): Recently started on metformin which is held for now and low-dose insulin glargine. Continue lispro as needed. Assessment & Plan (09/19/2024 5:54 PM EDT): Recently started on metformin which is held for now and low-dose insulin glargine. Continue lispro as needed. If blood glucose remains elevated will add basal insulin Assessment & Plan (09/19/2024 4:38 AM EDT): Recently started on metformin and low-dose insulin glargine. While she is n.p.o. we will give as needed lispro. Assessment & Plan (12/28/2023 2:41 PM EDT): Had a blood sugar level of 275 in the ED. She reports diet controlled diabetes Hemoglobin A1c is 5.2 -- Will continue to monitor Assessment & Plan (01/20/2019 7:04 PM EDT): The patient has a history of diabetes mellitus managed with diet and Metformin 275 mg daily. Given the need for imaging using contrast dye, the patient's Metformin will be held during her stay. Diabetic diet. POC glucose will be done before meals and insulin will be given using a sliding scale. Retinitis pigmentosa 01/20/2019 Assessment & Plan (12/27/2023 5:12 PM EDT): -Lutein and vit A are nonformulary Assessment & Plan (01/20/2019 7:07 PM EDT): The patient has a history of retinitis pigmentosa managed with lutein 12 mg every other day and vitamin A 15,000 IU every other day. Continue medications as prescribed Gastroesophageal reflux disease with hiatal ruth ia Hyperlipidemia Overview (09/19/2024): Intolerant of statins Encounters Date Type Department Care Team Description 12/24/2024 Transcribe Orders Virtual Department [address] [place] [address] Meagan Bowers MD Asymptomatic menopausal state (Primary Dx) from Last 3 Months Family History Medical History Relation Comments Diabetes Brother Diabetes Father Drug use disorder Father Drug use disorder Mother Relation Status Comments Brother Father Half-Brother Hodgkin's lympho ma Mother Social History Tobacco Use Types Packs/Day Years Used Date Smoking Tobacco: Former Cigarettes 3 5 0 01/20/1977 - 01/20/1982 Smokeless Tobacco: Never Tobacco Cessation:Counseling Given: Not Answered Alcohol Use Standard Drinks/Week Comments Yes 2 [...] PM EDT Sexual Orientation Not on file Last Filed Vital Signs Vital Sign Reading Time Taken Comments Blood Pressure 126/64 10/08/2024 11:13 AM EDT Pulse 64 10/08/2024 11:13 AM EDT Temperature 36.6 C (97.9 F) 10/08/2024 11:13 AM EDT Respiratory Rate 18 09/25/2024 11:13 AM EDT Oxygen Saturation 97% 10/08/2024 11:13 AM EDT Inhaled Oxygen Concentration - - Weight 54.5 kg (120 lb 2.4 oz) 09/25/2024 5:45 A M EDT Height 154.9 cm (5' 0.98 ) 09/19/2024 3:55 PM ED T Body Mass Index 22.71 09/19/2024 3:55 PM EDT Plan of Treatment Health Maintenance Due Date Last Done Comments DEPRESSION SCREENING 1965 MAMMOGRAM 1993 COLOGUARD 1998 FIT TEST 1998 FOBT 1998 SIGMOIDOSCOPY 1998 VIRTUAL COLONOSCOPY 1998 ZOSTER VACCINES (1 of 2) 11/12/2003 RSV VACCINE (1 - Risk 60-74 years 1-dose series) 2013 OSTEOPOROSIS SCREENING INITIAL (ONE-TIME) 2018 DIABETIC EYE EXAM 01/20/2019 LIPID PANEL 08/23/2019 08/22/2018 URINE MICROALBUMIN/CREATININE RATIO 08/23/2019 08/22/2018 Adult Td,Tdap Booster 10/21/2021 10/22/2011, 001 HEMOGLOBIN A1C 06/29/2024 12/28/2023, 08/22/2018 INFLUENZA VACCINE (#1) 2025 , 03/01/2019, 05/14/2018, Additional history exists COVID-19 VACCINE ( season) 2025 01/29/2022, 05/14/2021, 09/18/2020, Additional history exists BLOOD PRESSURE 04/10/2025 10/08/2024 CREATININE LEVEL 09/25/2025 09/25/2024, , 09/23/2024, Additional history exists COLONOSCOPY 11/25/2031 11/24/2021, 01/22/2019 COLORECTAL CANCER SCREENING 11/25/2031 PNEUMOCOCCAL VACCINES (50+ years) Completed 03/03/2020, 03/01/2019, 05/14/2018, Additional history exists HEPATITIS C SCREENING Completed 07/31/2024 , 05/08/2024, 12/29/2023 SMOKING STATUS SCREENING (Once After 26 Yrs) Completed 10/08/2024 HEPATITIS A VACCINES Aged Out No long er eligible based on patient's age to complete this topic HIB VACCINES Aged Out No longer eligi ble based on patient's age to complete this topic MENINGOCOCCAL VACCINES (ACWY) Aged Out No longer eligible based on patient's age to complete this topic MENINGOCOCCAL VACCINES (B) Aged Out N o longer eligible based on patient's age to complete this topic Medical Devices Not on file Procedures Procedure Name Priority Date/Time Associated Diagnosis Comments COMPREHENSIVE METABOLIC PANEL Routine 09/25/2024 6:53 AM EDT LIVER FIBROSIS TEST Routine 07/31/2024 1 0:25 AM EST Fatty liver Nonspecific abnormal results of liver function study Iron deficiency anemia secondary to blood loss (chronic) HEMOGLOBIN A1C Routine 12/28/2023 5:35 AM EDT ENDOSCOPY, COLON 11/24/2021 9:41 AM EDT from Last 3 Months or Most Recently Relevant to Health Maintenance Results * (ABNORMAL) Comprehensive metabolic panel (09/25/2024 6:53 AM EDT) SODIUM 140 133 - 146 mmol/L [facility] POTASSIUM 3.4 3.3 - 5.1 mmol/L [facility] CHLORIDE 104 96 - 108 mmol/L [facility] CO2 26 21 - 35 mmol/L [facility] BUN 9 6 - 19 mg/dL [facility] CREATININE 0.60 0.5 - 1.5 mg/dL [facility] GLUCOSE 265(H) 70 - 99 mg/dL [facility] ALBUMIN 2.5(L) 3.9 - 4.8 g/dL [facility] TOTAL PROTEIN 5.0(L) 6.5 - 8.0 g/dL [facility] CALCIUM 7.6(L) 8.4 - 10.3 mg/dL [facility] ALKALINE PHOSPHATASE 53 39 - 117 U/L [facility] TOTAL BILIRUBIN <0.2 0.0 - 1.2 mg/dL [facility] AST 10 0 - 37 U/L [facility] ALT 6 0 - 40 U/L [facility] GLOBULIN 2.5 1 - 4.8 g/dL [facility] EGFR 97 >59 mL/min/1.7 3m2 [facility] Comment:Estimated glomerular filtration rate calculated using the CKD-EPI refit equation. ANION GAP 13 10 - 20 mmol/L [facility] Blood 09/25/2024 6:53 AM EDT 09/25/2024 7:04 AM EDT us Bety Estrada MD LAB BLOOD ORDERABLES Final Result [facility] [address] [place] [address] * (ABNORMAL) Liver fibrosis test (07/31/2024 10:25 AM EST) Fibrosis score 0.43 [facility] Interpretation (Fibrosis) SEE NOTE [facility] Comment: (NOTE) minimal fibrosis Fibro Test Score [...] Fibrosis Grade SEE NOTE Q [facility] Comment: (NOTE) Result: F1-F2 NECROINFLAMM SCORE 0.20 Q [facility] NECROINFLAMM GRADE SEE NOTE Q [facility] Comment: (NOTE) Result: A0-A1 NECROINFLAMM INTERP SEE NOTE [facility] Comment: (NOTE) no activity ActiTest Score (a) [...] A2 Macroglobulin 285(H) 106 - 279 mg/dL [facility] Haptoglobin 123 43 - 212 mg/dL [facility] Apolipoprotein A1 140 101 - 198 mg/dL [facility] TOTAL BILIRUBIN 0.5 0.2 - 1.2 mg/dL [facility] GGT 24 3 - 65 U/L [facility] ALT 33(H) 6 - 29 U/L [facility] Specimen/Product ID [id number] [facility] Comments (Chemistry) SEE NOTE [facility] Comment: (NOTE) The reliability of results is dependent on compliance with the preanalytical and analytical conditions recommended by [employer]. The tests have to be deferred for: [...] The performance characteristics have been determined by [employer], [place]. It has not been cleared or approved by the U.S. Food and Drug Administration. Performance characteristics refer to the analytical performance of the test. Man[employer], the associated logo, [employer] and all associated [employer] reyes are the registered trademarks of [employer]. All third republican reyes - (R) and (TM) - are the property of their respective owners. (C) [id number] [employer]. All rights reserved. Blood 07/31/2024 10:2 5 AM EST 07/31/2024 10:34 AM EST us Florskyler Rodgers Jonny ROLLER PRESSER OPERATOR LAB BLOOD ORDERABLES Final Result [facility] [address] [place] [address], [facility] [phone] * Hemoglobin A1c (12/28/2023 5:35 AM EDT) HEMOGLOBIN A1C 5.2 4.3 - 5.8 % [facility] Blood 12/28/2023 5:35 AM EDT 12/28/2023 6:16 AM EDT us Judy Rodriguez DO LAB BLOOD ORDERABLES Final Re sult Performing Organization Address City/[facility]/ZIP Co de Phone Number [address] [address] * ENDOSCOPY, COLON (11/24/2021 9:41 AM EDT) Narrative Transcriptions Bolivar Gimenez MD - 11/24/2021 9:41 AM EDT Patient Name: Jossie Burrell MD:: BOLIVAR GIMENEZ MD Procedure Date: 11/24/2021 9:41 AM Date of : 1955 Age: 66 Admit Type: Outpatient Gender: Female Room: [facility] Referring MD: Laurie Estrada MD Exam Type: Colonoscopy Indications: High risk colon cancer surveillance: Personalhistory of colonic polyps Medications: Monitored Anesthesia Care Procedure: Informed consent was obtained from the patientafter discussion of the indications, limitations, alternatives, benefits, and risks of the procedure. Risks specifically discussed include but are not limited to medication reactions, missed lesions, bleeding, perforation, or the need for emergent surgery. Throughout the procedure, the patient's blood pressure, pulse, end-tidal CO2, and oxygensaturations were monitored continuously. The Olympus adult variable colonoscope CF-[id number] #6 was introduced through the anus and advanced to the cecum, identified by the appendiceal orifice. The colonoscopy was performed without difficulty. The patient tolerated the procedure well. The qualityof the bowel preparation was good. Anatomicallandmarks were photographed. Complications: No immediate complications. Estimated blood loss:None. Findings: The perianal and digital rectal examinations were normal. There was evidence of a prior rcx-qe-notaipdh-colonic anastomosis in the sigmoid colon. This waspatent. Multiple small-mouthed diverticula were found inthe sigmoid colon and descending colon. Two sessile polyps were found in the ascendingcolon and cecum. The polyps were 4 mm in size. Thesepolyps were removed with a cold snare. Resection and retrieval were complete. The rectum, recto-sigmoid colon, sigmoid colon, descending colon, splenic flexure, transversecolon, hepatic flexure, appendiceal orifice, ileocecalvalve, rectum (on retroflexion) and ascending colon (on retroflexion) appeared normal. Impression: - Patent end-to-side colo-colonic anastomosis. - Diverticulosis in the sigmoid colon and in the descending colon. - Two 4 mm polyps in the ascending colon and in the cecum, removed with a cold snare. Resected and retrieved. - The rectum, sigmoid colon, descending colon,splenic flexure, transverse colon, hepatic flexure, rectum(on retroflexion), ascending colon (on retroflexion), ileocecal valve, recto-sigmoid colon andappendiceal orifice are normal. Recommendation: - Discharge patient to home. - High fiber diet. - Continue present medications. - Await pathology results. - Repeat colonoscopy in 5 years for surveillance. - I will send you pathology results by letter. Ifyou do not get results in 3 weeks telephone maeve. BOLIVAR GIMENEZ MD 11/24/2021 10:14:26 AM This report has been signed electronically. Number of Addenda: 0 Note Initiated On: 11/24/2021 9:41 AM Procedure Code(s): --- Professional --- 47262, Colonoscopy, flexible; with removal of tumor(s), polyp(s), or other lesion(s) by snare technique --- Technical --- 49704, Colonoscopy, flexible; with removal of tumor(s), polyp(s), or other lesion(s) by snare technique Diagnosis Code(s): --- Professional --- Z86.010, Personal history of colonic polyps Z98.0, Intestinal bypass and anastomosis status K63.5, Polyp of colon K57.30, Diverticulosis of large intestine without perforation or abscess without bleeding --- Technical --- Z86.010, Personal history of colonic polyps Z98.0, Intestinal bypass and anastomosis status K63.5, Polyp of colon K57.30, Diverticulosis of large intestine without perforation or abscess without bleeding CPT copyright 2020 [employer]. All rights reserved. The codes documented in this report are preliminary and upon sheep farm worker reviewmay be revised to meet current compliance requirements. Procedure Date: 11/24/2021 9:41:[address] [place] [address] Laurie Estrada DO GI PROCEDURE ORDERABLES Final Result from Last 3 Months or Most Recently Relevant to Health Maintenance Insurance MEDICARE PART A & B XIHA MEDEX SUPPLEMENT MEDICARE PART A & B XIHA MEDEX SUPPLEMENT MEDICARE PART A & B XIHA MEDEX SUPPLEMENT MEDICARE PART A & B XIHA MEDEX SUPPLEMENT MEDICARE PART A & B XIHA MEDEX SUPPLEMENT MEDICARE PART A & B BLUE CROSS MEDEX SUPPLEMENT MEDICARE PART A & B XIHA MEDEX SUPPLEMENT MEDICARE PART A & B XIHA MEDEX SUPPLEMENT MEDICARE PART A & B XIHA MEDEX SUPPLEMENT Advance Directives For more information, please contact: [phone] (9AM - 5PM [facility], Saturday-Saturday) Documents on File Type Date Recorded 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 09/28/2024 4:06 PM * Full Code (Latest Code Status on File) Date Activated Date Inactivated Comments 09/19/2024 4:39 AM Question Answer Comments Code Status Confirmed With: Patient * Full Code Date Activated Date Inactivated Comments 12/27/2023 4:58 PM 09/19/2024 4:39 AM Question Answer Comments Code Status Confirmed With: Patient * Full Code Date Activated Date Inactivated Comments 10/15/2023 3:38 AM 12/27/2023 4:58 PM Question Answer Comments Code Status Confirmed With: Patient Code Status Communicated To: Inpatient Attending * Full Code (Confirmed) Date Activated Date Inactivated Comments 01/27/2019 7:04 PM 01/30/2019 7:37 PM Question Answer Comments Code Status Confirmed With: Patient Code Status Communicated To: Other (specify belo w) Code Discussion Comments: resident * Full Code (Confirmed) Date Activated Date Inactivated Comments 01/20/2019 6:08 PM 01/22/2019 4:49 PM Question Answer Comments Code Status Confirmed With: Patient Healthcare Agents on File Name Relationship Healthcare Agent Relationshi p Communication Everardo Cabezas Life Partner .Primary Health Care Agent (Proxy form on file) Care Teams Bone Char Puller Relationship Specialty Start Date End Date Meagan Bowers MD [address] [place] [address] [email or web address] PCP - General Family Medicine 09/19/24 Additional Source Comments The information contained in this document represents components of the legal health record. It is not the complete legal health record.[facility]
--- OUTSIDE RECORDS SUMMARY | 2025-02-16 11:15 | XMS_ITS | Encounter Summary ---
Author Organization [facility] Address [address] [facility] [address] [place] [address] Phone Care Team Providers Care Software Implementation Project Manager Name Role Phone Meagan Bowers MD Primary Care Provider [phone] Encounter Details Date Type Department Care Team (Late st Contact Info) Description 09/23/2024 Telephone [facility] Medicine Virtual Department [address] [place] [address] Bety Estrada MD [address] [place] [address] [email or web address] Social History Tobacco Use Types Packs/Day Years [...] on filedocumented in this encounter Care Teams Software Implementation Project Manager Relationship Specialty Start Date End Date Meagan Bowers MD [address] [place] [address] [email or web address] PCP - General Family Medicine 09/19/24 documented as of this encounter Additional Source Comments The information contained in this document represents components of the legal health record. It is not the complete legal health record.[facility]
--- OUTSIDE RECORDS SUMMARY | 2025-02-16 11:16 | XMS_ITS | Encounter Summary ---
Author Organization [facility] Address [address] [place] [address] Phone Care Team Providers Care Cafeteria Assistant Name Role Phone Laurie Estrada DO Primary Care Provider [phone] Laurie Estrada DO Unavailable [phone] Jacquelin Long MD Primary Care Provider + Greg Castaneda DO Primary Care Provider [phone] Meagan Bowers MD Primary Care Provider [phone] Encounter Details Date Type Department Care Team (Late st Contact Info) Description 01/30/2019 Procedure Pass [facility] Endoscopy Department [address] [place] [address] Social History Tobacco Use Types Packs/Day Years [...] documented as of this encounter Care Teams Cafeteria Assistant Relationship Specialty Start Date End Date Laurie Estrada DO [address] [place] [address] PCP - General Internal Medicine 12/24/16 10/14/23 Jacquelin Long MD [address] [place] [address] [place] [address] [email or web address] PCP - General Family Medicine 10/15/23 08/12/24 Greg Castaneda DO [address] [place] [address] PCP - General Internal Medicine 08/13/24 09/18/24 Meagan Bowers MD [address] [place] [address] [email or web address] PCP - General Family Medicine 09/19/24 Laurie Estrada DO [address] [place] [address] [place] [address] Insurance Assigned Provider 10/05/17 02/07/19 documented as of this encounter Additional Source Comments The information contained in this document represents components of the legal health record. It is not the complete legal health record.[facility]
--- OUTSIDE RECORDS SUMMARY | 2025-02-16 11:16 | XMS_ITS | Clinical Summary ---
Author Organization [facility] Address [address] [place] [address] Care Team Providers Care Automotive Service Cashier Name Role Phone Unavailable Primary Care Provider Unavailabl e Social History Tobacco Use Types Packs/Day Years Used Date Smoking Tobacco: Never Assessed Comments Unknown Sex and Gender Information Value Date Recorded Sex Assigned at Not on file Legal Sex Female 1:30 PM EDT Gender Identity Not on file Sexual Orientation Not on file Plan of Treatment Health Maintenance Due Date Last Done Comments Advance Care Planning 1955 Hepatitis C Virus Screening 1955 DTaP/Tdap/Td Vaccines (1 - Tdap) 1972 Pneumococcal Vaccines 50+ (1 of 1 - PCV) 11/12/2003 Zoster (Shingles) Vaccine (1 of 2) 11/12/2003 COVID-19 Vaccine ( - 2023-2 5 season) 2025 RSV Vaccine 60 years and old er and Patients (1 - 1-dose 75+ series) 2028 Hepatitis B Vaccines Aged Out No long er eligible based on patient's age to complete this topic
--- OUTSIDE RECORDS SUMMARY | 2025-02-16 11:16 | XMS_ITS | Encounter Summary ---
Author Organization [facility] Address [address] [place] [address] Phone Care Team Providers Care Natural Developer Name Role Phone Laurie Estrada DO Primary Care Provider [phone] Laurie Estrada DO Unavailable [phone] Jacquelin Long MD Primary Care Provider + Greg Castaneda DO Primary Care Provider Meagan Bowers MD Primary Care Provider Encounter Details Date Type Department Care Team (Late st Contact Info) Description 01/22/2019 Procedure Pass [facility] Endoscopy Admitting Dept Virtual Department [address] [place] [address] Social History Tobacco Use Types Packs/Day Years [...] documented as of this encounter Care Teams Natural Developer Relationship Specialty Start Date End Date Laurie Estrada DO [address] [place] [address] PCP - General Internal Medicine 12/24/16 10/14/23 Jacquelin Long MD [address] [place] [address] [place] [address] [email or web address] PCP - General Family Medicine 10/15/23 08/12/24 Greg Castaneda DO [address] [place] [address] PCP - General Internal Medicine 08/13/24 09/18/24 Meagan Bowers MD [address] [place] [address] PCP - General Family Medicine 09/19/24 Laurie Estrada DO [address] [place] [address] [place] [address] Insurance Assigned Provider 10/05/17 02/07/19 documented as of this encounter Additional Source Comments The information contained in this document represents components of the legal health record. It is not the complete legal health record.[facility]
--- OUTSIDE RECORDS SUMMARY | 2025-02-16 11:16 | XMS_ITS | Encounter Summary ---
Author Organization [facility] Address [address] [facility] [address] [place] [address] Phone Care Team Providers Care Paperboard Boxes Estimator Name Role Phone Meagan Bowers MD Primary Care Provider Encounter Details Date Type Department Care Team (Latest Contact Info) Description 12/24/2024 Transcribe Orders Virtual Department [address] [place] [address] Meagan Bowers MD [address] [place], [place] [phone] [email or web address] Asymptomatic menopausal state (Primary Dx) Social History [...] as of this encounter Plan of Treatment Scheduled Orders Name Type Priority Associated Diagnoses Orde r Schedule DXA Screening Imaging Routine Asymptomatic menopausal state Expected: 01/23/2025, Expires: 12/24/2025 documented as of this encounter Visit Diagnoses Diagnosis Asymptomatic menopausal state- Primary documented in this encounter Care Teams Paperboard Boxes Estimator Relationship Specialty Start Date End Date Meagan Bowers MD [address] [place] [address] [email or web address] PCP - General Family Medicine 09/19/24 documented as of this encounter Additional Source Comments The information contained in this document represents components of the legal health record. It is not the complete legal health record.[facility]
--- OUTSIDE RECORDS SUMMARY | 2025-02-16 11:16 | XMS_ITS | Encounter Summary ---
Author Organization [facility] Address [address] [facility] [address] [place] [address] Phone Care Team Providers Care Director Of Planning Name Role Phone Jacquelin Long MD Primary Care Provider + Greg Castaneda DO Primary Care Provider [phone] Meagan Bowers MD Primary Care Provider Encounter Details Date Type Department Care Team (Latest Contact Info) Description 03/25/2024 Transcribe Orders [facility] Laboratory [address] [id number] Flor Fuller NP [address] [place], [place] [phone] [email or web address] [facility] Fatty liver (Primary Dx) Social History Tobacco Use Types [...] documented as of this encounter Results * (ABNORMAL) CBC and differential (03/25/2024 9:29 AM EDT) WBC 2.86(L) 4.00 - 11.00 K/uL [facility] RBC 4.41 4.00 - 5.20 M/uL [facility] HGB 15.0 12.0 - 16.0 g/dL [facility] HCT 45.4 36.0 - 46.0 % [facility] PLT 103(L) 150 - 450 K/uL [facility] Comment:Microscopic estimate : Platelets slightly decreased. MCV 102.9(H) 80.0 - 100.0 fL [facility] MCH 34.0(H) 27.0 - 31.0 pg [facility] 33.[facility] 32.0 - 36.0 g/dL [facility] RDW 14.6(H) 11.5 - 14.5 % [facility] MPV 10.5 8.4 - 12.0 fl [facility] NRBC 0.00 0.00 /100 WBCs [facility] ABSOLUTE NRBC 0.00 0.00 K/uL [facility] DIFF METHOD Auto [facility] NEUTS 52.1 48.0 - 76.0 % [facility] LYMPHS 37.1 18.0 - 41.0 % [facility] MONOS 8.4 4.0 - 11.0 % [facility] EOS 1.4 0.0 - 5.0 % [facility] BASOS 0.7 0.0 - 1.5 % [facility] Granulocytes, immature (%) 0.3 0.0 - 0.9 % [facility] ABSOLUTE NEUTS 1.49(L) 1.92 - 7.60 K/uL [facility] ABSOLUTE LYMPHS 1.06 0.72 - 4.10 K/uL [facility] ABSOLUTE MONOS 0.24 0.16 - 1.10 K/uL [facility] ABSOLUTE EOS 0.04 0.00 - 0.50 K/uL [facility] ABSOLUTE BASOS 0.02 0.00 - 0.15 K/uL [facility] Granulocytes, immature 0.01 0.00 - 0.09 K/uL [facility] Blood 03/25/2024 9:29 AM EDT 03/25/2024 9:34 AM EDT us Flor Fuller NP LAB BLOOD ORDERABLES Final Result [facility] [address] [place] [address] * (ABNORMAL) LFTs (hepatic panel) (03/25/2024 9:29 AM EDT) ALKALINE PHOSPHATASE 100 39 - 117 U/L [facility] TOTAL BILIRUBIN 0.5 0.0 - 1.2 mg/dL [facility] DIRECT BILIRUBIN <0.2 0 - 0.3 mg/dL [facility] Bilirubin (Indirect) NOT CALCULATED 0 - 1.5 mg/dL [facility] AST 52(H) 0 - 37 U/L [facility] ALT 24 0 - 40 U/L [facility] TOTAL PROTEIN 7.3 6.5 - 8.0 g/dL [facility] ALBUMIN 3.7(L) 3.9 - 4.8 g/dL [facility] GLOBULIN 3.6 1 - 4.8 g/dL [facility] A/G Ratio 1.03 1.00 - 4.80 RATIO [facility] Blood 03/25/2024 9:29 AM EDT 03/25/2024 9:34 AM EDT Flor Fuller PAINT BOOTH OPERATOR LAB BLOOD ORDERABLES Final Result Performing Organization Address [facility]/ZIP Co de Phone Number [address] [address] * (ABNORMAL) Immunoglobulin A (03/25/2024 9:29 AM EDT) IgA 502(H) 70 - 400 mg/dL [facility] Blood 03/25/2024 9:29 AM EDT 03/25/2024 9:34 AM EDT us Flor Fuller PAINT BOOTH OPERATOR LAB BLOOD ORDERABLES Final Result Performing Organization Address [facility]/ZIP Co de Phone Number [address] [address] * Tissue transglutaminase IgA (03/25/2024 9:29 AM EDT) TTG IGA ANTIBODY 1.3 <4.0 (Negative) U/mL [facility] Blood 03/25/2024 9:29 AM EDT 03/25/2024 9:34 AM EDT Flor Fuller PAINT BOOTH OPERATOR LAB BLOOD ORDERABLES Final Result [facility] [address] [place] [address] * (ABNORMAL) GGT (Gamma glutamyl transferase) (03/25/2024 9:29 AM EDT) GGT 89(H) 7 - 33 U/L [facility] Blood 03/25/2024 9:29 AM EDT 03/25/2024 9:34 AM EDT us Flor Fuller PAINT BOOTH OPERATOR LAB BLOOD ORDERABLES Final Result [facility] [address] [place] [address] documented in this encounter Visit Diagnoses Diagnosis Fatty liver- Primary Other chronic nonalcoholic liver disease documented in this encounter Care Teams Director Of Planning Relationship Specialty Start Date End Date Jacquelin Long MD [email or web address] PCP - General Family Medicine 10/15/23 08/12/24 Greg Castaneda DO [address] [place] [address] PCP - General Internal Medicine 08/13/24 09/18/24 Meagan Bowers MD [address] [place] [address] [email or web address] PCP - General Family Medicine 09/19/24 documented as of this encounter Additional Source Comments The information contained in this document represents components of the legal health record. It is not the complete legal health record.[facility]
--- OUTSIDE RECORDS SUMMARY | 2025-02-16 11:16 | XMS_ITS | Encounter Summary ---
Author Organization [facility] Address [address] [place] [address] Phone Care Team Providers Care Kidney Trimmer Name Role Phone Laurie Estrada DO Primary Care Provider [phone] Laurie Estrada DO Unavailable [phone] Jacquelin Long MD Primary Care Provider + Greg Castaneda DO Primary Care Provider [phone] Meagan Bowers MD Primary Care Provider Encounter Details Date Type Department Care Team (Late st Contact Info) Description 01/28/2019 Procedure Pass [facility] Endoscopy Department [address] [place] [address] Social History Tobacco Use Types Packs/Day Years [...] Indicated Resolved Time CoV-Risk 01/25/2024 01/25/2024 02/05/2024 1:2 2 AM EDT documented as of this encounter Care Teams Kidney Trimmer Relationship Specialty Start Date End Date Laurie Estrada DO [address] [place] [address] PCP - General Internal Medicine 12/24/16 10/14/23 Jacquelin Long MD [address] [place] [address] [place] [address] [email or web address] PCP - General Family Medicine 10/15/23 08/12/24 Greg Castaneda DO [address] [place] [address] PCP - General Internal Medicine 08/13/24 09/18/24 Meagan Bowers MD [address] [place] [address] [email or web address] PCP - General Family Medicine 09/19/24 Laurie Estrada DO [address] [place] [address] [place] [address] Insurance Assigned Provider 10/05/17 02/07/19 documented as of this encounter Additional Source Comments The information contained in this document represents components of the legal health record. It is not the complete legal health record.[facility]
--- OUTSIDE RECORDS SUMMARY | 2025-02-16 11:16 | XMS_ITS | Encounter Summary ---
Author Organization [facility] Address [address] [place] [address] [place] [address] Phone Care Team Providers Care Games Manager Name Role Phone Jacquelin Long MD Primary Care Provider + Greg Castaneda DO Primary Care Provider [phone] Meagan Bowers MD Primary Care Provider Encounter Details Date Type Department Care Team (Latest Contact Info) Description 05/08/2024 Transcribe Orders [facility] Laboratory [address] [place] [address] [phone] Flor Fuller NP [address], [place] [phone] [email or web address] Fatty liver (Primary Dx); Iron deficiency anemia secondary to blood loss (chronic); Nonspecific abnormal results of liver function study Social History Tobacco Use Types Packs/Day Years [...] as of this encounter Results * Phosphatidylethanol (05/08/2024 10:28 AM EST) PEth 16:0/18:1 (POPEth) by LC-MS/MS 61 Cutoff: 10 ng/mL [facility] Comment: (NOTE) Phosphatidylethanol [...] Forensic Sci) PEth 16:0/18:2 (PLPEth) by LC-MS/MS 14 Cutoff: 10 ng/mL [facility] Comment: (NOTE) PEth 16:0/18:2 (PLPEth) Reference ranges are not well established PEth Interpretation Positive. [facility] Comment: (NOTE) ADDITIONAL INFORMATION This report is intended for use in clinical monitoring and management of patients. It is not intended for use in employment-related testing. This test was developed and its performance characteristics determined by [facility] in a manner consistent with CLIA requirements. This test has not been cleared or approved by the U.S. Food and Drug Administration. Blood 05/08/2024 10:2 8 AM EST 05/08/2024 10:38 AM EST Flor Fuller NP LAB BLOOD ORDERABLES Final Result [facility] [address] [place] [address] * Vitamin B12 (05/08/2024 10:28 AM EST) VITAMIN B12 914 232 - 1,245 pg/mL [facility] Blood 05/08/2024 10:2 8 AM EST 05/08/2024 10:37 AM EST Flor Fuller NP LAB BLOOD ORDERABLES Final Result [facility] [address] [place] [address] * PT-INR (05/08/2024 10:28 AM EST) PT 11.0 10.2 - 12.9 sec [facility] INR 1.0 0.9 - 1.1 [facility] Comment:Therapeutic range fo r oral Vitamin K antagonists: 2.0-3.5 Blood 05/08/2024 10:2 8 AM EST 05/08/2024 10:37 AM EST Florskyler Rodgers Jonny RESIDENT DOCTOR LAB BLOOD ORDERABLES Final Result Performing Organization Address [facility] Co de Phone Number [address] [address] * (ABNORMAL) Ferritin (05/08/2024 10:28 AM EST) FERRITIN 275(H) 13 - 150 ug/L [facility] Blood 05/08/2024 10:2 8 AM EST 05/08/2024 10:37 AM EST Flor Ana Maria Jonny RESIDENT DOCTOR LAB BLOOD ORDERABLES Final Result Performing Organization Address [facility] Co de Phone Number [address] [address] * Folate (05/08/2024 10:28 AM EST) FOLIC ACID 8.6 4.2 - 19.9 ng/mL [facility] Blood 05/08/2024 10:2 8 AM EST 05/08/2024 10:37 AM EST Flor Fuller RESIDENT DOCTOR LAB BLOOD ORDERABLES Final Result Performing Organization Address [facility] Co de Phone Number [address] [address] * Iron and iron binding capacity (05/08/2024 10:28 AM EST) IRON 121 30 - 160 ug/dL [facility] IRON BINDING CAPACITY 285 228 - 428 ug/dL [facility] TRANSFERRIN SATURAT. 42 15 - 50 % [facility] Blood 05/08/2024 10:2 8 AM EST 05/08/2024 10:37 AM EST us Flor Fuller RESIDENT DOCTOR LAB BLOOD ORDERABLES Final Result Performing Organization Address City/[facility]/ZIP Co de Phone Number [address] [address] * LFTs (hepatic panel) (05/08/2024 10:28 AM EST) ALKALINE PHOSPHATASE 65 39 - 117 U/L [facility] TOTAL BILIRUBIN 0.7 0.0 - 1.2 mg/dL [facility] DIRECT BILIRUBIN <0.2 0 - 0.3 mg/dL [facility] Bilirubin (Indirect) NOT CALCULATED 0 - 1.5 mg/dL [facility] AST 33 0 - 37 U/L [facility] ALT 22 0 - 40 U/L [facility] TOTAL PROTEIN 7.5 6.5 - 8.0 g/dL [facility] ALBUMIN 4.3 3.9 - 4.8 g/dL [facility] GLOBULIN 3.2 1 - 4.8 g/dL [facility] A/G Ratio 1.34 1.00 - 4.80 RATIO [facility] Blood 05/08/2024 10:2 8 AM EST 05/08/2024 10:37 AM EST us Flor Fuller RESIDENT DOCTOR LAB BLOOD ORDERABLES Final Result Performing Organization Address City/[facility]/ZIP Co de Phone Number [address] [address] * (ABNORMAL) CBC and differential (05/08/2024 10:28 AM EST) WBC 3.68(L) 4.00 - 11.00 K/uL [facility] RBC 4.45 4.00 - 5.20 M/uL [facility] HGB 15.1 12.0 - 16.0 g/dL [facility] HCT 43.7 36.0 - 46.0 % [facility] PLT 170 150 - 450 K/uL [facility] MCV 98.2 80.0 - 100.0 fL [facility] MCH 33.9(H) 27.0 - 31.0 pg [facility] MCHC 34.6 32.0 - 36.0 g/dL [facility] RDW 12.1 11.5 - 14.5 % [facility] MPV 10.1 8.4 - 12.0 fL [facility] NRBC 0.00 0.00 /100 WBCs [facility] ABSOLUTE NRBC 0.00 0.00 K/uL [facility] DIFF METHOD Auto [facility] NEUTS 66.3 48.0 - 76.0 % [facility] LYMPHS 23.4 18.0 - 41.0 % [facility] MONOS 7.6 4.0 - 11.0 % [facility] EOS 2.2 0.0 - 5.0 % [facility] BASOS 0.5 0.0 - 1.5 % [facility] Granulocytes, immature (%) 0.0 0.0 - 0.9 % [facility] ABSOLUTE NEUTS 2.44 1.92 - 7.60 K/uL [facility] ABSOLUTE LYMPHS 0.86 0.72 - 4.10 K/uL [facility] ABSOLUTE MONOS 0.28 0.16 - 1.10 K/uL [facility] ABSOLUTE EOS 0.08 0.00 - 0.50 K/uL [facility] ABSOLUTE BASOS 0.02 0.00 - 0.15 K/uL [facility] Granulocytes, immature 0.00 0.00 - 0.09 K/uL [facility] Blood 05/08/2024 10:2 8 AM EST 05/08/2024 10:37 AM EST us Flor Fuller NP LAB BLOOD ORDERABLES Final Result [facility] [address] [place] [address] * Liver fibrosis test (05/08/2024 10:28 AM EST) Fibrosis score 0.40 [facility] Interpretation (Fibrosis) SEE NOTE [facility] Comment: (NOTE) minimal fibrosis Fibro Test Score [...] Fibrosis Grade SEE NOTE Q [facility] Comment: (NOTE) Result: F1-F2 NECROINFLAMM SCORE 0.11 Q [facility] NECROINFLAMM GRADE A0 Q [facility] NECROINFLAMM INTERP SEE NOTE [facility] Comment: (NOTE) no activity ActiTest Score (a) Metavir Score a>=0 and a<=0.17 : A0 (no activity) a>0.17 and a<=0.29 : A0-A1 (no activity) a>0.29 and a<=0.36 : A1 (minimal activity) a>0.36 and a<=0.52 : A1-A2 (minimal activity) a>0.52 and a<=0.60 : A2 (significant activity) a>0.60 and a<=0.62 : A2-A3 (significant activity) a>0.62 and a<=1.00 : A3 (severe activity) A2 Macroglobulin 230 106 - 279 mg/dL [facility] Haptoglobin 127 43 - 212 mg/dL [facility] Apolipoprotein A1 155 101 - 198 mg/dL [facility] TOTAL BILIRUBIN 0.7 0.2 - 1.2 mg/dL [facility] GGT 41 3 - 65 U/L [facility] ALT 23 6 - 29 U/L [facility] Specimen/Product ID [id number] [facility] Comments (Chemistry) SEE NOTE [facility] Comment: (NOTE) The reliability of results is dependent on compliance with the preanalytical and analytical conditions recommended by [employer]. The tests have to be deferred for: [...] The performance characteristics have been determined by [facility]. It has not been cleared or approved by the U.S. Food and Drug Administration. Performance characteristics refer to the analytical performance of the test. Cyrba, the associated logo, [employer] and all associated [employer] reyes are the registered trademarks of [employer]. All third green party reyes - (R) and (TM) - are the property of their respective owners. (C) [id number] [employer]. All rights reserved. Blood 05/08/2024 10:2 8 AM EST 05/08/2024 10:37 AM EST Flor Fuller NP LAB BLOOD ORDERABLES Final Result [employer] [facility] [address] [place] [address], [facility] [phone] documented in this encounter Visit Diagnoses Diagnosis Fatty liver- Primary Other chronic nonalcoholic liver disease Iron deficiency anemia secondary to blood loss (chronic) Nonspecific abnormal results of liver function study documented in this encounter Care Teams Games Manager Relationship Specialty Start Date End Date Jacquelin Long MD [email or web address] PCP - General Family Medicine 10/15/23 08/12/24 Greg Castaneda DO [address] [place] [address] PCP - General Internal Medicine 08/13/24 09/18/24 Meagan Bowers MD [address] [place] [address] [email or web address] PCP - General Family Medicine 09/19/24 documented as of this encounter Additional Source Comments The information contained in this document represents components of the legal health record. It is not the complete legal health record.[facility]
--- OUTSIDE RECORDS SUMMARY | 2025-02-16 11:16 | XMS_ITS | Encounter Summary ---
Author Organization [facility] Address [address] [place] [address] [place] [address] Phone Care Team Providers Care Kiln Setter Name Role Phone Jacquelin Long MD Primary Care Provider + Greg Castaneda DO Primary Care Provider [phone] Meagan Bowers MD Primary Care Provider Encounter Details Date Type Department Care Team (Late st Contact Info) Description 10/15/2023 Ophth Exam DEDE Consult from [address] [address] Yared Epstein MD [address] [place] [address] [email or web address] Social History Tobacco Use Types Packs/Day Years [...] Date of Assessment Author No Risk Indicated 10/15/2023 3:23 AM EDT Gustavo Sabillon, JADE * [place] Suicide Severity Rating Scale (Screener/Recent Self-Report) Question Answer Date of Assessment Author 1. Wish to be (Past 1 Month) No 024 3:23 AM EDT Gustavo Sabillon RN 2. Non-Specific Active Suici mitchell Thoughts (Past 1 Month) No 10/15/2023 3:23 AM EDT Elisabeth Sabillon, RN 6. Suicidal Behavior (Lifetime) No 3:23 AM EDT Gustavo Sabillon, RN documented as of this encounter Plan of Treatment Not on file documented as of this encounter Visit Diagnoses Not on filedocumented in this encounter Additional Health Concerns Infection Onset Date Last Indicated Resolved Time CoV-Risk 01/25/2024 01/25/2024 02/05/2024 1:22 AM EDT documented as of this encounter Care Teams Kiln Setter Relationship Specialty Start Date End Date Jacquelin Long MD [email or web address] PCP - General Family Medicine 10/15/23 08/12/24 Greg Castaneda DO [address] [place] [address] PCP - General Internal Medicine 08/13/24 09/18/24 Meagan Bowers MD [address] [place] [phone] [email or web address] PCP - General Family Medicine 09/19/24 documented as of this encounter Additional Source Comments The information contained in this document represents components of the legal health record. It is not the complete legal health record.[facility]
== END 2025-02-16 09:04 | disposition home or self-care (01) ==
LOC: HO.HOSX 09:03
PROVIDERS: Visit Provider Orthopaedic Surgery
DX: Z13.89 Encounter for screening for other disorder (principal)

== ENCOUNTER 2025-02-17 09:03 | Outpatient (REF) | payer MEDICARE, BC, SELFPAY ==
--- NOTE | ~2025-02-17 | XR_ITS ---
EXAMINATION: XR HAND, LEFT CLINICAL INFORMATION: M79.642 - Pain in left hand COMPARISON: None available. TECHNIQUE: PA, lateral, and oblique views of the left hand. FINDINGS: Moderate atherosclerotic calcifications are present. There is diffuse osteopenia. There is chondrocalcinosis in the tracheobronchial cartilage, scapholunate ligament, lunotriquetral ligament, and in soft tissues volar to the third MCP joint. There is mild narrowing of the third, fourth, and fifth DIP joints, PIP joints, and the first MCP and IP joints with small marginal osteophytes. XR/XR hand LT min 3V IMPRESSION: Mild osteoarthritis. Osteopenia. Chondrocalcinosis. Atherosclerotic disease. Electronically signed by: Alessandro Tarango MD 02/17/2025 09:53 AM EDT
--- NOTE | ~2025-02-17 | XR_ITS ---
EXAMINATION: XR HAND, RIGHT CLINICAL INFORMATION: M79.641 - Pain in right hand COMPARISON: None available. TECHNIQUE: PA, lateral, and oblique views of the right hand. FINDINGS: There is diffuse osteopenia. There are moderate vascular calcifications. There is chondrocalcinosis involving scaphoid, triangular fibrocartilage, and lunotriquetral ligament. There are no erosions. There is mild asymmetric narrowing of the first metacarpal phalangeal joint with small marginal osteophytes and degenerative cystic change in the radial aspect of the metacarpal head. There is mild asymmetric narrowing of the IP joint of thumb with small marginal osteophytes. There is mild narrowing of the DIP and PIP joints of the fifth digit and DIP joints of the second and third digits and small marginal osteophytes. XR/XR hand RT min 3V IMPRESSION: Mild osteoarthritis. Osteopenia. Chondrocalcinosis. Electronically signed by: Alessandro Tarango MD 02/17/2025 09:51 AM EDT
== END 2025-02-17 09:04 | disposition home or self-care (01) ==
LOC: HO.HOSX 09:03
PROVIDERS: Visit Provider Orthopaedic Surgery
DX: M19.042 Primary osteoarthritis, left hand (principal); M19.041 Primary osteoarthritis, right hand; M65.311 Trigger thumb, right thumb; M65.312 Trigger thumb, left thumb; R20.0 Anesthesia of skin; R20.2 Paresthesia of skin; E11.9 Type 2 diabetes mellitus without complications; Z79.84 Long term (current) use of oral hypoglycemic drugs
CPT/HCPCS: 73130; 99202

== ENCOUNTER 2025-02-17 09:22 | Outpatient (AMB) | payer MEDICARE, BC, SELFPAY ==
--- NOTE | 2025-02-17 09:29 | A.OFFVIS_ITS ---
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 Patients states pain is worse with gripping, pinching and grabbing motion of hand. Patient has tried taping at her IP joint and states this helps. Also mentioned she is having numbness and tingling in both hand that is constant through out the day. No EMG. Patient doesn't recall her medication and will bring in a list next visit. Patient is pre diabetic and no longer on insulin just taking metformin. Accompanied by: Everardo Allergies atorvastatin (From LIPITOR) Allergy (Unknown, Unverified 02/17/25 09:31) LARGE BOILS codeine (CODEINE) Allergy (Unknown, Unverified 02/17/25 09:31) NAUSEA & VOMITING fenofibrate (FENOFIBRATE) Allergy (Unknown, Unverified 02/17/25 09:31) RASH loratadine (LORATADINE) Allergy (Unknown, Unverified 02/17/25 09:31) RASH meclizine (MECLIZINE) Allergy (Unknown, Unverified 02/17/25 09:31) RASH medroxyprogesterone (From PROVERA) Allergy (Unknown, Unverified 02/17/25 09:31) ANAPHYLAXIS metformin (METFORMIN) Allergy (Unknown, Unverified 02/17/25 09:31) WHOLE PILL (500MG) GI DISTRESS, DIZZINESS metoprolol (METOPROLOL) Allergy (Unknown, Unverified 02/17/25 09:31) ITCHING simvastatin (SIMVASTATIN) Allergy (Unknown, Unverified 02/17/25 09:31) BOILS/RASH CHOLESTEROL MEDS Allergy (Unknown, Uncoded 02/17/25 09:31) BOILS, RASH HPI HPI 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 She complains of pain at the base of her thumbs. This is worse with pinching & gripping activities, such as knitting. She says she has clicking & popping in her thumbs when bending them. She denies any prior injections, and has been taping/splinting her thumbs in extension at home which give her some relief. She also complains of bilateral hand numbness, which she says is present in all fingers and constant throughout the day She is a Diabetic, a smoker, and is on Skyrizi for Psoriasis. She has a Hx of Gout & postherpetic neuralgia. Her most recent HgA1c was 5.8% and she is managing this with Metformin & diet. PFSH Medical History (Updated 02/17/25 @ 09:51 by Jacinto Baum) FHx: bowel obstruction Social History (Updated 02/17/25 @ 09:43 by ELVIS Mendoza) Current occupational status: retired Current occupation: rt hand Review of Systems Const All systems reviewed & are unremarkable except as noted in HPI and below Physical Exam Vital Signs: BMI result Body Mass Index 23.0 Const General: cooperative, healthy appearing and no acute distress Orientation/consciousness: patient oriented x3 HEENT Head: Yes normocephalic and Yes atraumatic Eyes EOM: EOMs intact bilaterally Resp Effort & Inspection: normal respiratory effort and able to speak in complete sentences Cardio Jugular venous distension: no JVD Skin General skin exam: turgor normal Rashes: no rashes Neuro General: patient oriented x3 Extrem Other: Evaluation of Bilateral Upper Extremity: The patient is alert, oriented, and in no acute distress Neuro: Dense numbness in the median nerve distribution bilaterally. decreased subjective sensation in the small fingers bilaterally No thenar or intrinsic wasting Good APB muscle belly firing and good finger cross Vascular: Cap refill brisk ROM: She can make a fist and extend all her digits Visible & palpable locking & catching of the left thumb patient reports similar locking in the opposite thumb, which she feels it is worse Tender over the a1 peter bilaterally Skin: No lacerations or abrasions. General: No Ecchymosis. No Erythema or evidence of infection. No tenderness over the basal joint No tenderness over the 1st dorsal compartment No tenderness over the MCP joint Radiographs: 3 views of the bilateral hands were taken and viewed by me today in clinic. They show mild basal joint arthritis. Psych Appearance: grossly normal Affect: normal affect Attitude: cooperative Assessment & Plan Assessment & Plan (1) Trigger thumb, right thumb: Code(s): M65.311 - Trigger thumb, right thumb Category: Medical (2) Trigger thumb, left thumb: Code(s): M65.312 - Trigger thumb, left thumb Category: Medical (3) Numbness and tingling in both hands: Code(s): R20.0 - Anesthesia of skin; R20.2 - Paresthesia of skin Category: Medical (4) Diabetes mellitus: Code(s): E11.9 - Type 2 diabetes mellitus without complications Category: Medical Plan Assessment & Plan: 1. Right trigger thumb 2. left trigger thumb I educated her about this condition I discussed operative and non-operative treatment options, including injections vs surgery The patient is interested in surgical intervention. We will defer treatment at this time until her NCS is complete, as an injection now would delay possible surgery for up to 3 months We will discuss treatment options when she returns for her NCS review 3. Bilateral hand numbness With dense numbness in the median nerve distribution Decreased subjective sensation in the small fingers I educated her about carpal & cubital tunnel syndrome I ordered a NCS to assess for peripheral nerve compression She will follow up when completed for review Scribed for Faby Vivas MD by Jacinto Baum, medical scientific liaison, on 02/17/25 at 9:35 AM, EST. Orders: Orders XR hand RT min 3V Today M79.641 - Pain in right hand NE electromyogram (EMG) Today R20.0 - Anesthesia of skin, R20.2 - Paresthesia of skin NE nerve conduction velocity Today R20.0 - Anesthesia of skin, R20.2 - Paresthesia of skin XR hand LT min 3V Today M79.642 - Pain in left hand Coding Level of Care Code New Pt Level 4 (39128) Diagnoses Trigger thumb, right thumb M65.311 Trigger thumb, left thumb M65.312 Numbness and tingling in both hands R20.0; R20.2 Diabetes mellitus E11.9
[2025-02-17 09:36] VITALS: BMI 23.0
--- OUTSIDE RECORDS SUMMARY | 2025-02-17 11:01 | XMS_ITS | Encounter Summary ---
Author Organization [facility] Address [address] [facility] [address] [place] [address] Phone Care Team Providers Care Fisher Lobster Name Role Phone Natalie Laurie Heart DO Primary Care Provider [phone] Jacquelin Long MD Primary Care Provider + Greg Castaneda DO Primary Care Provider [phone] Meagan Bowers MD Primary Care Provider [phone] Encounter Details Date Type Department Care Team (Latest Contact Info) Description 10/14/2023 Hospital Encounter Katharina Amado MD [address] [place] [phone] [email or web address] Social History Tobacco Use Types Packs/Day Years [...] 12:16 AM EDT Verona Navarro RN * [place] Suicide Severity Rating Scale (Screener/Recent Self-Report) Question [...] NOTE SITUATIONAL AWARENESS: Name of transferring hospital: [facility] Name of transferring physician: Dr Diggs Contact number for transferring physician: [phone] Contact number of transferring floor: [phone] Name of patient's HCP: Unknown Contact number [...] high-risk of requiring intensive care unit at [facility] (i.e., at high risk of needing pressor support, respiratory support [e.g., non-invasive positive pressure support or intubation] or high nursing needs) Watch Current clinical status (i.e., vital signs, vital sign trend, or laboratory data) that indicates this patient is at moderate-risk of requiring intensive care unit at [facility] AND/OR the patient was in the intensive care unit at the transferring hospital within the past 24 hours Stable Current clinical status (i.e., vital signs, vital sign trend, or laboratory data) that indicates this patient is at low-risk of requiring intensive care unit at [facility] AND/OR the patient was in the intensive [...] additional clinical information in the following locations: [facility] Chart Review => Encounters => [facility] Admissions => right hand side is timeline [...] documented as of this encounter Care Teams Fisher Lobster Relationship Specialty Start Date End Date Laurie Estrada DO [address] [place] [phone] PCP - General Internal Medicine 12/24/16 10/14/23 Jacquelin Long MD [address] [place] [phone] [email or web address] PCP - General Family Medicine 10/15/23 08/12/24 Greg Castaneda DO [address] [place] [phone] PCP - General Internal Medicine 08/13/24 09/18/24 Meagan Bowers MD [address] [place] [address] [email or web address] PCP - General Family Medicine 09/19/24 documented as of this encounter Additional Source Comments The information contained in this document represents components of the legal health record. It is not the complete legal health record.[facility]
--- OUTSIDE RECORDS SUMMARY | 2025-02-17 11:02 | XMS_ITS | Encounter Summary ---
Author Organization [facility] Address [address] [place] [address] Phone Care Team Providers Care Anatomy And Physiology Instructor Name Role Phone Laurie Estrada DO Primary Care Provider [phone] Laurie Estrada DO Unavailable Jacquelin Long MD Primary Care Provider + Greg Castaneda DO Primary Care Provider [phone] Meagan Bowers MD Primary Care Provider [phone] Encounter Details Date Type Department Care Team (Late st Contact Info) Description 10/11/2017 Procedure Pass [facility] Endoscopy Admitting Dept [facility] Department [address] [place] [phone] Social History Tobacco Use Types Packs/Day Years [...] documented as of this encounter Care Teams Anatomy And Physiology Instructor Relationship Specialty Start Date End Date Laurie Estrada DO [address] [place] [phone] PCP - General Internal Medicine 12/24/16 10/14/23 Jacquelin Long MD [address] [place] [address] [place] [address] [email or web address] PCP - General Family Medicine 10/15/23 08/12/24 Greg Castaneda DO [address] [place] [phone] PCP - General Internal Medicine 08/13/24 09/18/24 Meagan Bowers MD [address] [place] [phone] [email or web address] PCP - General Family Medicine 09/19/24 Laurie Estrada DO [address] [place] [address] [place] [address] Insurance Assigned Provider 10/05/17 02/07/19 documented as of this encounter Additional Source Comments The information contained in this document represents components of the legal health record. It is not the complete legal health record.[facility]
--- OUTSIDE RECORDS SUMMARY | 2025-02-17 11:02 | XMS_ITS | Encounter Summary ---
Author Organization [facility] Address [address] [place] [address] Phone Care Team Providers Care Cell Repairer Name Role Phone Laurie Estrada DO Primary Care Provider [phone] Laurie Estrada DO Unavailable [phone] Jacquelin Long MD Primary Care Provider + Greg Castaneda DO Primary Care Provider [phone] Meagan Bowers MD Primary Care Provider Encounter Details Date Type Department Care Team (Latest Contact Info) Description 01/20/2019 Transcribe Orders Virtual Department 30 [place] [address] Laurie Estrada DO [address] [place] [address] [email or web address] Intra-abdominal and pelvic swelling, mass and [...] documented as of this encounter Care Teams Cell Repairer Relationship Specialty Start Date End Date Laurie Estrada DO [address] [place] [address] PCP - General Internal Medicine 12/24/16 10/14/23 [place] [address] [email or web address] PCP - General Family Medicine 10/15/23 08/12/24 Greg Castaneda DO [address] [place] [address] PCP - General Internal Medicine 08/13/24 09/18/24 Meagan Bowers MD [address] [place] [address] [email or web address] PCP - General Family Medicine 09/19/24 [place] [address] Insurance Assigned Provider 10/05/17 02/07/19 documented as of this encounter Additional Source Comments The information contained in this document represents components of the legal health record. It is not the complete legal health record.[facility]
--- OUTSIDE RECORDS SUMMARY | 2025-02-17 11:02 | XMS_ITS | Encounter Summary ---
Author Organization [facility] Address [address] [place] [address] Phone Care Team Providers Care Pharmacy Clinical Coordinator Name Role Phone Laurie Estrada DO Primary Care Provider Jacquelin Long MD Primary Care Provider + Greg Castaneda DO Primary Care Provider Meagan Bowers MD Primary Care Provider Encounter Details Date Type Department Care Team (Late st Contact Info) Description 11/24/2021 Procedure Pass [facility] Endoscopy Admitting Dept Virtual Department 30 [place], [place] [phone] Social History Tobacco Use Types Packs/Day Years [...] documented as of this encounter Care Teams Pharmacy Clinical Coordinator Relationship Specialty Start Date End Date Laurie Estrada DO [address] [place] [address] PCP - General Internal Medicine 12/24/16 10/14/23 Jacquelin Long MD [address] [place] [address] [email or web address] PCP - General Family Medicine 10/15/23 08/12/24 Greg Castaneda DO [address] [place] [address] PCP - General Internal Medicine 08/13/24 09/18/24 Meagan Bowers MD [address] [place] [address] [email or web address] PCP - General Family Medicine 09/19/24 documented as of this encounter Additional Source Comments The information contained in this document represents components of the legal health record. It is not the complete legal health record.[facility]
--- OUTSIDE RECORDS SUMMARY | 2025-02-17 11:02 | XMS_ITS | Encounter Summary ---
Author Organization [facility] Address [address] [place] [address] Phone Care Team Providers Care Special Services Supervisor Name Role Phone Laurie Estrada DO Primary Care Provider [phone] Laurie Estrada DO Unavailable [phone] Jacquelin Long MD Primary Care Provider + Greg Castaneda DO Primary Care Provider Meagan Bowers MD Primary Care Provider [phone] Encounter Details Date Type Department Care Team (Latest Contact Info) Description 09/09/2017 Transcribe Orders [facility] Laboratory 10 [facility] 2nd [place] [address] Bolivar Arteaga MD [address] [address] [email or web address] Lower GI bleeding (Primary Dx) Social History [...] EDT) FERRITIN 21 13 - 150 ug/L [facility] Blood 09/09/2017 3:14 PM EDT 09/09/2017 3:18 PM EDT us Bolivar Arteaga MD LAB BLOOD ORDERABLES Final R esult [address] [address] * (ABNORMAL) Iron and iron binding capacity (09/09/2017 3:14 PM EDT) IRON 33 30 - 160 ug/dL [facility] IRON BINDING CAPACITY 510(H) 228 - 428 ug/dL [facility] TRANSFERRIN SATURAT. 6(L) 15 - 50 % [facility] Blood 09/09/2017 3:14 PM EDT 09/09/2017 3:18 PM EDT us Bolivar Arteaga MD LAB BLOOD ORDERABLES Final R esult [address] [address] * (ABNORMAL) CBC and differential (09/09/2017 3:14 PM EDT) WBC 4.63 3.40 - 11.20 K/uL [facility] RBC 3.54(L) 3.80 - 4.80 M/uL [facility] HGB 10.5(L) 12.0 - 15.0 g/dL [facility] HCT 32.5(L) 36.0 - 46.0 % [facility] PLT 248 130 - 400 K/uL [facility] MCV 91.8 79.0 - 98.0 fL [facility] MCH 29.7 27.0 - 34.8 pg [facility] MCHC 32.3 31.5 - 36.0 g/dL [facility] RDW 13.5 10.8 - 14.6 % [facility] MPV 10.0 9.4 - 12.4 fl [facility] NRBC 0.00 /100 WBCs [facility] ABSOLUTE NRBC 0.00 K/uL [facility] DIFF METHOD Auto [facility] NEUTS 59.9 45.30 - 77.70 % [facility] LYMPHS 30.2 12.30 - 39.70 % [facility] MONOS 8.2 4.10 - 12.80 % [facility] EOS 1.1 0 - 7.2 % [facility] BASOS 0.6 0 - 2.80 % [facility] Granulocytes, immature (%) 0.0 0.0 - 0.9 % [facility] ABSOLUTE NEUTS 2.77 1.40 - 7.70 K/uL [facility] ABSOLUTE LYMPHS 1.40 0.60 - 3.20 K/uL [facility] ABSOLUTE MONOS 0.38 0.11 - 0.59 K/uL [facility] ABSOLUTE EOS 0.05 0.01 - 0.50 K/uL [facility] ABSOLUTE BASOS 0.03 0.00 - 0.08 K/uL [facility] Granulocytes, immature 0.00 0.00 - 0.05 K/uL [facility] Blood 09/09/2017 3:14 PM EDT 09/09/2017 3:18 PM EDT us Bolivar Arteaga MD LAB BLOOD ORDERABLES Final R esult Performing Organization Address City/State/[facility] Co de Phone Number [facility] [address] [place] [address] documented in this encounter Visit Diagnoses Diagnosis Lower GI bleeding- Primary Unspecified, hemorrhage of gastrointestinal tract documented in this encounter Additional Health Concerns Infection Onset Date Last Indicated Resolved Time CoV-Risk 01/25/2024 01/25/2024 02/05/2024 1:22 AM EDT documented as of this encounter Care Teams Special Services Supervisor Relationship Specialty Start Date End Date Laurie Estrada DO [address] [place] [address] PCP - General Internal Medicine 12/24/16 10/14/23 Jacquelin Long MD [address] [place] [address] [place] [address] [email or web address] PCP - General Family Medicine 10/15/23 08/12/24 Greg Castaneda DO [address] [place] [address] PCP - General Internal Medicine 08/13/24 09/18/24 Meagan Bowers MD [address] [place] [address] [email or web address] PCP - General Family Medicine 09/19/24 Laurie Estrada DO [address] [place] [address] [place] [address] Insurance Assigned Provider 10/05/17 02/07/19 documented as of this encounter Additional Source Comments The information contained in this document represents components of the legal health record. It is not the complete legal health record.[facility]
--- OUTSIDE RECORDS SUMMARY | 2025-02-17 11:02 | XMS_ITS | Encounter Summary ---
Author Organization [facility] Address [address] [facility] [address] [place] [address] Phone Care Team Providers Care Roof Bolter Operator Name Role Phone Jacquelin Long MD Primary Care Provider + Greg Castaneda DO Primary Care Provider [phone] Meagan Bowers MD Primary Care Provider Encounter Details Date Type Department Care Team (Late st Contact Info) Description 12/28/2023 Procedure Pass [facility] Endoscopy Admitting Dept Virtual Department 30 [place], [place] [phone] Social History Tobacco Use Types Packs/Day Years [...] documented as of this encounter Care Teams Roof Bolter Operator Relationship Specialty Start Date End Date Jacquelin Long MD [email or web address] PCP - General Family Medicine 10/15/23 08/12/24 Greg Castaneda DO [address] [place] [address] PCP - General Internal Medicine 08/13/24 09/18/24 Meagan Bowers MD 70 [place] [address] [email or web address] PCP - General Family Medicine 09/19/24 documented as of this encounter Additional Source Comments The information contained in this document represents components of the legal health record. It is not the complete legal health record.[facility]
--- OUTSIDE RECORDS SUMMARY | 2025-02-17 11:02 | XMS_ITS | Encounter Summary ---
Author Organization [facility] Address [address] [place] [address] Phone Care Team Providers Care Vulcan Crewmember Name Role Phone Laurie Estrada DO Primary Care Provider [phone] Laurie Estrada DO Unavailable Jacquelin Long MD Primary Care Provider + Greg Castaneda DO Primary Care Provider [phone] Meagan Bowers MD Primary Care Provider Encounter Details Date Type Department Care Team (Latest Contact Info) Description 12/30/2017 Transcribe Orders [facility] Laboratory 10 [facility] 2nd [place] [address] Bolivar Arteaga MD [address] [address] [email or web address] Hx of colonic polyps (Primary Dx) Social [...] documented as of this encounter Care Teams Vulcan Crewmember Relationship Specialty Start Date End Date Laurie Estrada DO [address] [place] [address] PCP - General Internal Medicine 12/24/16 10/14/23 [place] [address] [email or web address] PCP - General Family Medicine 10/15/23 08/12/24 Greg Castaneda DO [address] [place] [address] PCP - General Internal Medicine 08/13/24 09/18/24 Meagan Bowers MD [address] [place] [address] [email or web address] PCP - General Family Medicine 09/19/24 [place] [address] Insurance Assigned Provider 10/05/17 02/07/19 documented as of this encounter Additional Source Comments The information contained in this document represents components of the legal health record. It is not the complete legal health record.[facility]
--- OUTSIDE RECORDS SUMMARY | 2025-02-17 11:02 | XMS_ITS | Encounter Summary ---
Author Organization [facility] Address [address] [facility] [address] [place] [address] Phone Care Team Providers Care Cdl A Driver Name Role Phone Natalie Laurie Heart DO Primary Care Provider [phone] Jacquelin Long MD Primary Care Provider + Greg Castaneda DO Primary Care Provider Meagan Bowers MD Primary Care Provider Encounter Details Date Type Department Care Team (Late st Contact Info) Description 12/02/2019 Transcribe Orders [facility] Specimen Processing 30 [place] [address] Juana Wells MD [address], [place] [phone] Social History Tobacco Use Types Packs/Day Years [...] documented as of this encounter Care Teams Cdl A Driver Relationship Specialty Start Date End Date Laurie Estrada DO [address] [place] [address] PCP - General Internal Medicine 12/24/16 10/14/23 Jacquelin Long MD [address] [place] [address] [email or web address] PCP - General Family Medicine 10/15/23 08/12/24 Greg Castaneda DO [address] [place] [address] PCP - General Internal Medicine 08/13/24 09/18/24 Meagan Bowers MD [address] [place] [address] [email or web address] PCP - General Family Medicine 09/19/24 documented as of this encounter Additional Source Comments The information contained in this document represents components of the legal health record. It is not the complete legal health record.[facility]
--- OUTSIDE RECORDS SUMMARY | 2025-02-17 11:02 | XMS_ITS | Encounter Summary ---
Author Organization [facility] Address [address] [facility] [address] [place] [address] Phone Care Team Providers Care Lead Nurse Name Role Phone Meagan Bowers MD Primary Care Provider Encounter Details Date Type Department Care Team (Late st Contact Info) Description 09/23/2024 Telephone [facility] Medicine Virtual Department 30 [place] [address] Bety Estrada MD 30 [place] [address] [email or web address] Social History Tobacco Use Types Packs/Day Years [...] on filedocumented in this encounter Care Teams Lead Nurse Relationship Specialty Start Date End Date Meagan Bowers MD [address] [place] [address] [email or web address] PCP - General Family Medicine 09/19/24 documented as of this encounter Additional Source Comments The information contained in this document represents components of the legal health record. It is not the complete legal health record.[facility]
--- OUTSIDE RECORDS SUMMARY | 2025-02-17 11:02 | XMS_ITS | Encounter Summary ---
Author Organization [facility] Address [address] [place] [address] Phone Care Team Providers Care Family Welfare Social Work Professor Name Role Phone [email or web address] Laurie Heart DO Primary Care Provider Jacquelin Long MD Primary Care Provider + Greg Castaneda DO Primary Care Provider [phone] Meagan Bowers MD Primary Care Provider [phone] Encounter Details Date Type Department Care Team (Latest Contact Info) Description 02/21/2023 Transcribe Orders Virtual Department 30 [place] [address] Jacquelin Long MD [address] [place], [place] [phone] [email or web address] Asymptomatic menopausal state (Primary Dx) Social [...] documented as of this encounter Care Teams Family Welfare Social Work Professor Relationship Specialty Start Date End Date Laurie Estrada DO [address] [place] [address] PCP - General Internal Medicine 12/24/16 10/14/23 Jacquelin Long MD [address] [place] [address] [email or web address] PCP - General Family Medicine 10/15/23 08/12/24 Greg Castaneda DO [address] [place] [address] PCP - General Internal Medicine 08/13/24 09/18/24 Meagan Bowers MD [address] [place] [address] [email or web address] PCP - General Family Medicine 09/19/24 documented as of this encounter Additional Source Comments The information contained in this document represents components of the legal health record. It is not the complete legal health record.[facility]
--- OUTSIDE RECORDS SUMMARY | 2025-02-17 11:02 | XMS_ITS | Encounter Summary ---
Author Organization [facility] Address [address] [facility] [address] [place] [address] Phone Care Team Providers Care Wine Blender Name Role Phone Meagan Bowers MD Primary Care Provider Encounter Details Date Type Department Care Team (Late st Contact Info) Description 09/19/2024 Procedure Pass [facility], Ct Scan - [address] [address] Social History Tobacco Use Types Packs/Day Years [...] 12:16 AM EDT Verona Navarro RN * Sharp Suicide Severity Rating Scale (Screener/Recent Self-Report) Question [...] on filedocumented in this encounter Care Teams Wine Blender Relationship Specialty Start Date End Date Meagan Bowers MD [address] [place] [address] [email or web address] PCP - General Family Medicine 09/19/24 documented as of this encounter Additional Source Comments The information contained in this document represents components of the legal health record. It is not the complete legal health record.[facility]
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
--- OUTSIDE RECORDS SUMMARY | 2025-02-17 11:02 | XMS_ITS | Encounter Summary ---
Author Organization [facility] Address [address] [facility] [address] [place] [address] Phone Care Team Providers Care Sales Representative Advertising Name Role Phone Meagan Bowers MD Primary Care Provider Encounter Details Date Type Department Care Team (Late st Contact Info) Description 09/21/2024 Procedure Pass [place] Admitting Dept - Virtual Department 30 [place] [address] Social History Tobacco Use Types Packs/Day Years [...] on filedocumented in this encounter Care Teams Sales Representative Advertising Relationship Specialty Start Date End Date Meagan Bowers MD [address] [place] [address] PCP - General Family Medicine 09/19/24 documented as of this encounter Additional Source Comments The information contained in this document represents components of the legal health record. It is not the complete legal health record.[facility]
--- OUTSIDE RECORDS SUMMARY | 2025-02-17 11:02 | XMS_ITS | Encounter Summary ---
Author Organization [facility] Address [address] [place] [address] Phone Care Team Providers Care Vegetable Grader Name Role Phone Laurie Estrada DO Primary Care Provider [phone] Laurie Estrada DO Unavailable [phone] Jacquelin Long MD Primary Care Provider + Greg Castaneda DO Primary Care Provider Meagan Bowers MD Primary Care Provider Encounter Details Date Type Department Care Team (Late st Contact Info) Description 01/21/2019 Procedure Pass [facility] Endoscopy Admitting Dept Virtual Department 30 [place] [address] Social History Tobacco Use Types Packs/Day Years [...] documented as of this encounter Care Teams Vegetable Grader Relationship Specialty Start Date End Date Laurie Estrada DO [address] [place] [address] PCP - General Internal Medicine 12/24/16 10/14/23 Jacquelin Long MD [address] [place] [address] [place] [address] [email or web address] PCP - General Family Medicine 10/15/23 08/12/24 Greg Castaneda DO [address] [place] [address] PCP - General Internal Medicine 08/13/24 09/18/24 Meagan Bowers MD [address] [place] [address] [email or web address] PCP - General Family Medicine 09/19/24 Laurie Estrada DO [address] [place] [address] [place] [address] Insurance Assigned Provider 10/05/17 02/07/19 documented as of this encounter Additional Source Comments The information contained in this document represents components of the legal health record. It is not the complete legal health record.[facility]
--- OUTSIDE RECORDS SUMMARY | 2025-02-17 11:02 | XMS_ITS | Encounter Summary ---
Author Organization [facility] Address [address] [facility] [address] [place] [address] Phone Care Team Providers Care Customer Order Clerk Name Role Phone Jacquelin Long MD Primary Care Provider + Greg Castaneda DO Primary Care Provider [phone] Meagan Bowers MD Primary Care Provider Encounter Details Date Type Department Care Team (Late st Contact Info) Description 12/28/2023 Procedure Pass [facility], Ct Scan - [address] [phone] Social History Tobacco Use Types Packs/Day Years [...] documented as of this encounter Care Teams Customer Order Clerk Relationship Specialty Start Date End Date Jacquelin Long MD [email or web address] PCP - General Family Medicine 10/15/23 08/12/24 Greg Castaneda DO [address] [place] [address] PCP - General Internal Medicine 08/13/24 09/18/24 Meagan Bowers MD [address] [place] [address] [email or web address] PCP - General Family Medicine 09/19/24 documented as of this encounter Additional Source Comments The information contained in this document represents components of the legal health record. It is not the complete legal health record.[facility]
--- OUTSIDE RECORDS SUMMARY | 2025-02-17 11:03 | XMS_ITS | Encounter Summary ---
Author Organization [facility] Address [address] [place] [address] Phone Care Team Providers Care Tableau Lead Name Role Phone Laurie Estrada DO Primary Care Provider [phone] Laurie Estrada DO Unavailable Jacquelin Long MD Primary Care Provider + Greg Castaneda DO Primary Care Provider Meagan Bowers MD Primary Care Provider Encounter Details Date Type Department Care Team (Late st Contact Info) Description 01/30/2019 Procedure Pass [facility] Endoscopy Department [address] [place] [address] Social History Tobacco Use Types Packs/Day Years [...] documented as of this encounter Care Teams Tableau Lead Relationship Specialty Start Date End Date Laurie Estrada DO [address] [place] [address] PCP - General Internal Medicine 12/24/16 10/14/23 Jacquelin Long MD [address] [place] [address] [place] [address] [email or web address] PCP - General Family Medicine 10/15/23 08/12/24 Greg Castaneda DO [address] [place] [address] PCP - General Internal Medicine 08/13/24 09/18/24 Meagan Bowers MD [address] [place] [address] [email or web address] PCP - General Family Medicine 09/19/24 Laurie Estrada DO [address] [place] [address] [place] [address] Insurance Assigned Provider 10/05/17 02/07/19 documented as of this encounter Additional Source Comments The information contained in this document represents components of the legal health record. It is not the complete legal health record.[facility]
--- OUTSIDE RECORDS SUMMARY | 2025-02-17 11:03 | XMS_ITS | Encounter Summary ---
Author Organization [facility] Address [address] [place] [address] Phone Care Team Providers Care Installment Dealer Name Role Phone Laurie Estrada DO Primary Care Provider [phone] Laurie Estrada DO Unavailable [phone] Jacquelin Long MD Primary Care Provider + Greg Castaneda DO Primary Care Provider Meagan Bowers MD Primary Care Provider [phone] Encounter Details Date Type Department Care Team (Late st Contact Info) Description 01/28/2019 Procedure Pass [facility] Endoscopy Department [address] [place] [address] Social History Tobacco Use Types Packs/Day Years [...] documented as of this encounter Care Teams Installment Dealer Relationship Specialty Start Date End Date Laurie Estrada DO [address] [place] [address] PCP - General Internal Medicine 12/24/16 10/14/23 Jacquelin Long MD [address] [place] [address] [place] [address] [email or web address] PCP - General Family Medicine 10/15/23 08/12/24 Greg Castaneda DO [address] [place] [address] PCP - General Internal Medicine 08/13/24 09/18/24 Meagan Bowers MD [address] [place] [address] [email or web address] PCP - General Family Medicine 09/19/24 Laurie Estrada DO [address] [place] [address] [place] [address] Insurance Assigned Provider 10/05/17 02/07/19 documented as of this encounter Additional Source Comments The information contained in this document represents components of the legal health record. It is not the complete legal health record.[facility]
--- OUTSIDE RECORDS SUMMARY | 2025-02-17 11:03 | XMS_ITS | Encounter Summary ---
Author Organization [facility] Address [address] [place] [address] Phone Care Team Providers Care Head Of Insight Name Role Phone Laurie Estrada DO Primary Care Provider [phone] Laurie Estrada DO Unavailable Jacquelin Long MD Primary Care Provider + Greg Castaneda DO Primary Care Provider Meagan Bowers MD Primary Care Provider [phone] Encounter Details Date Type Department Care Team (Late st Contact Info) Description 01/22/2019 Procedure Pass [facility]oscopy Admitting Dept Virtual Department [address] [place] [address] Social History Tobacco Use Types Packs/Day Years [...] documented as of this encounter Care Teams Head Of Insight Relationship Specialty Start Date End Date Laurie Estrada DO [address] [place] [address] PCP - General Internal Medicine 12/24/16 10/14/23 Jacquelin Long MD [address] [place] [address] [place] [address] [email or web address] PCP - General Family Medicine 10/15/23 08/12/24 Greg Castaneda DO [address] [place] [address] PCP - General Internal Medicine 08/13/24 09/18/24 Meagan Bowers MD [address] [place] [address] [email or web address] PCP - General Family Medicine 09/19/24 Laurie Estrada DO [address] [place] [address] [place] [address] Insurance Assigned Provider 10/05/17 02/07/19 documented as of this encounter Additional Source Comments The information contained in this document represents components of the legal health record. It is not the complete legal health record.[facility]
--- OUTSIDE RECORDS SUMMARY | 2025-02-17 11:03 | XMS_ITS | Encounter Summary ---
Author Organization [facility] Address [address] [place] [address] [place] [address] Phone Care Team Providers Care Sfdc Solution Architect Name Role Phone Jacquelin Long MD Primary Care Provider + Greg Castaneda DO Primary Care Provider [phone] Meagan Bowers MD Primary Care Provider Encounter Details Date Type Department Care Team (Late st Contact Info) Description 10/15/2023 Ophth Exam DEDE Consult from [address] [address] Yared Epstein MD [address] [place] [address] [email or web address] Social History Tobacco Use Types Packs/Day Years [...] 3:23 AM EDT Gustavo Sabillon, JADE * Frazee Suicide Severity Rating Scale (Screener/Recent Self-Report) Question [...] documented as of this encounter Care Teams Sfdc Solution Architect Relationship Specialty Start Date End Date Jacquelin Logn MD [email or web address] PCP - General Family Medicine 10/15/23 08/12/24 Greg Castaneda DO [address] [place] [address] PCP - General Internal Medicine 08/13/24 09/18/24 Meagan Bowers MD [address] [place] [address] [email or web address] PCP - General Family Medicine 09/19/24 documented as of this encounter Additional Source Comments The information contained in this document represents components of the legal health record. It is not the complete legal health record.[facility]
--- OUTSIDE RECORDS SUMMARY | 2025-02-17 11:03 | XMS_ITS | Encounter Summary ---
Author Organization [facility] Address [address] [place] [address] [place] [address] Phone Care Team Providers Care Morning Nanny Name Role Phone Jacquelin Long MD Primary Care Provider + Greg Castaneda DO Primary Care Provider Meagan Bowers MD Primary Care Provider Encounter Details Date Type Department Care Team (Latest Contact Info) Description 05/08/[address] [facility] [address] [place] [address] [phone] Flor Fuller NP [address] [place], [place] [phone] [email or web address] Fatty liver (Primary Dx); Iron deficiency anemia [...] (POPEth) by LC-MS/MS 61 Cutoff: 10 ng/mL [facility] Comment: (NOTE) Phosphatidylethanol [...] (PLPEth) by LC-MS/MS 14 Cutoff: 10 ng/mL [facility] Comment: (NOTE) PEth 16:0/18:2 (PLPEth) Reference ranges are not well established PEth Interpretation Positive. [facility] Comment: (NOTE) ADDITIONAL INFORMATION This report is intended for use in clinical monitoring and management of patients. It is not intended for use in employment-related testing. This test was developed and its performance characteristics determined by [facility] in a manner consistent with CLIA requirements. This test has not been cleared or approved by the U.S. Food and Drug Administration. Blood 05/08/2024 10:2 8 AM EST 05/08/2024 10:38 AM EST Flor Fuller NP LAB BLOOD ORDERABLES Final Result [facility] [address] [place] [address] * Vitamin B12 (05/08/2024 10:28 AM EST) VITAMIN B12 914 232 - 1,245 pg/mL [facility] Blood 05/08/2024 10:2 8 AM EST 05/08/2024 10:37 AM EST Flor Fuller NP LAB BLOOD ORDERABLES Final Result [facility] [address] [place] [address] * PT-INR (05/08/2024 10:28 AM EST) PT 11.0 10.2 - 12.9 sec [facility] INR 1.0 0.9 - 1.1 [facility] Comment:Therapeutic range fo r oral Vitamin K antagonists: 2.0-3.5 Blood 05/08/2024 10:2 8 AM EST 05/08/2024 10:37 AM EST Florskyler Rodgers Jonny AUDIOVISUAL AIDS TECHNICIAN LAB BLOOD ORDERABLES Final Result Performing Organization Address [facility] Co de Phone Number [address] [address] * (ABNORMAL) Ferritin (05/08/2024 10:28 AM EST) FERRITIN 275(H) 13 - 150 ug/L [facility] Blood 05/08/2024 10:2 8 AM EST 05/08/2024 10:37 AM EST Flor Ana Maria Jonny AUDIOVISUAL AIDS TECHNICIAN LAB BLOOD ORDERABLES Final Result Performing Organization Address [facility] Co de Phone Number [address] [address] * Folate (05/08/2024 10:28 AM EST) FOLIC ACID 8.6 4.2 - 19.9 ng/mL [facility] Blood 05/08/2024 10:2 8 AM EST 05/08/2024 10:37 AM EST Flor Fuller AUDIOVISUAL AIDS TECHNICIAN LAB BLOOD ORDERABLES Final Result Performing Organization Address [facility] Co de Phone Number [address] [address] * Iron and iron binding capacity (05/08/2024 10:28 AM EST) IRON 121 30 - 160 ug/dL [facility] IRON BINDING CAPACITY 285 228 - 428 ug/dL [facility] TRANSFERRIN SATURAT. 42 15 - 50 % [facility] Blood 05/08/2024 10:2 8 AM EST 05/08/2024 10:37 AM EST us Flor Fuller AUDIOVISUAL AIDS TECHNICIAN LAB BLOOD ORDERABLES Final Result Performing Organization Address City/[facility]/ZIP Co de Phone Number [address] [address] * LFTs (hepatic panel) (05/08/2024 10:28 AM EST) ALKALINE PHOSPHATASE 65 39 - 117 U/L [facility] TOTAL BILIRUBIN 0.7 0.0 - 1.2 mg/dL [facility] DIRECT BILIRUBIN <0.2 0 - 0.3 mg/dL [facility] Bilirubin (Indirect) NOT CALCULATED 0 - 1.5 mg/dL [facility] AST 33 0 - 37 U/L [facility] ALT 22 0 - 40 U/L [facility] TOTAL PROTEIN 7.5 6.5 - 8.0 g/dL [facility] ALBUMIN 4.3 3.9 - 4.8 g/dL [facility] GLOBULIN 3.2 1 - 4.8 g/dL [facility] A/G Ratio 1.34 1.00 - 4.80 RATIO [facility] Blood 05/08/2024 10:2 8 AM EST 05/08/2024 10:37 AM EST us Flor Fuller AUDIOVISUAL AIDS TECHNICIAN LAB BLOOD ORDERABLES Final Result Performing Organization Address City/[facility]/ZIP Co de Phone Number [address] [address] * (ABNORMAL) CBC and differential (05/08/2024 10:28 AM EST) WBC 3.68(L) 4.00 - 11.00 K/uL [facility] RBC 4.45 4.00 - 5.20 M/uL [facility] HGB 15.1 12.0 - 16.0 g/dL [facility] HCT 43.7 36.0 - 46.0 % [facility] PLT 170 150 - 450 K/uL [facility] MCV 98.2 80.0 - 100.0 fL [facility] MCH 33.9(H) 27.0 - 31.0 pg [facility] MCHC 34.6 32.0 - 36.0 g/dL [facility] RDW 12.1 11.5 - 14.5 % [facility] MPV 10.1 8.4 - 12.0 fL [facility] NRBC 0.00 0.00 /100 WBCs [facility] ABSOLUTE NRBC 0.00 0.00 K/uL [facility] DIFF METHOD Auto [facility] NEUTS 66.3 48.0 - 76.0 % [facility] LYMPHS 23.4 18.0 - 41.0 % [facility] MONOS 7.6 4.0 - 11.0 % [facility] EOS 2.2 0.0 - 5.0 % [facility] BASOS 0.5 0.0 - 1.5 % [facility] Granulocytes, immature (%) 0.0 0.0 - 0.9 % [facility] ABSOLUTE NEUTS 2.44 1.92 - 7.60 K/uL [facility] ABSOLUTE LYMPHS 0.86 0.72 - 4.10 K/uL [facility] ABSOLUTE MONOS 0.28 0.16 - 1.10 K/uL [facility] ABSOLUTE EOS 0.08 0.00 - 0.50 K/uL [facility] ABSOLUTE BASOS 0.02 0.00 - 0.15 K/uL [facility] Granulocytes, immature 0.00 0.00 - 0.09 K/uL [facility] Blood 05/08/2024 10:2 8 AM EST 05/08/2024 10:37 AM EST us Flor Fuller NP LAB BLOOD ORDERABLES Final Result [facility] [address] [place] [address] * Liver fibrosis test (05/08/2024 10:28 AM EST) Fibrosis score 0.40 [facility] Interpretation (Fibrosis) SEE NOTE [facility] [...] Fibrosis Grade SEE NOTE Q [facility] Comment: (NOTE) Result: F1-F2 NECROINFLAMM SCORE 0.11 Q [facility] NECROINFLAMM GRADE A0 Q [facility] NECROINFLAMM INTERP SEE NOTE [facility] Comment: (NOTE) no activity ActiTest Score (a) [...] 230 106 - 279 mg/dL [facility] Haptoglobin 127 43 - 212 mg/dL [facility] Apolipoprotein A1 155 101 - 198 mg/dL [facility] TOTAL BILIRUBIN 0.7 0.2 - 1.2 mg/dL [facility] GGT 41 3 - 65 U/L [facility] ALT 23 6 - 29 U/L [facility] Specimen/Product ID [id number] [facility] Comments (Chemistry) SEE NOTE [facility] Comment: (NOTE) The reliability of results is dependent on compliance with the preanalytical and analytical conditions recommended by [employer]. The tests have to be deferred for: [...] The performance characteristics have been determined by [facility]. It has not been cleared or approved by the U.S. Food and Drug Administration. Performance characteristics refer to the analytical performance of the test. AIT, the associated logo, [employer] and all associated [employer] reyes are the registered trademarks of [employer]. All third alliance party reyes - (R) and (TM) - are the property of their respective owners. (C) [id number] [employer]. All rights reserved. Blood 05/08/2024 10:2 8 AM EST 05/08/2024 10:37 AM EST Flor Fuller NP LAB BLOOD ORDERABLES Final Result [email or web address] [place] [address], [facility] [phone] documented in this encounter Visit Diagnoses Diagnosis Fatty liver- Primary Other chronic nonalcoholic liver disease Iron deficiency anemia secondary to blood loss (chronic) Nonspecific abnormal results of liver function study documented in this encounter Care Teams Morning Nanny Relationship Specialty Start Date End Date Jacquelin Long MD [email or web address] PCP - General Family Medicine 10/15/23 08/12/24 Greg Castaneda DO [address] [place] [address] PCP - General Internal Medicine 08/13/24 09/18/24 Meagan Bowers MD [address] [place] [address] [email or web address] PCP - General Family Medicine 09/19/24 documented as of this encounter Additional Source Comments The information contained in this document represents components of the legal health record. It is not the complete legal health record.[facility]
--- OUTSIDE RECORDS SUMMARY | 2025-02-17 11:03 | XMS_ITS | Clinical Summary ---
Author Organization [facility] Address [address] [place] [address] Care Team Providers Care Agricultural Equipment Mechanic Name Role Phone Unavailable Primary Care Provider [...]
--- OUTSIDE RECORDS SUMMARY | 2025-02-17 11:03 | XMS_ITS | Encounter Summary ---
Author Organization [facility] Address [address] [facility] [address] [place] [address] Phone Care Team Providers Care Union Steward Name Role Phone Meagan Bowers MD Primary Care Provider Encounter Details Date Type Department Care Team (Latest Contact Info) Description 12/24/2024 Transcribe Orders Virtual Department [address] [place] [address] Meagan Bowers MD [address] [place], [place] [phone] [email or web address] Asymptomatic menopausal state (Primary Dx) Social [...] Primary documented in this encounter Care Teams Union Steward Relationship Specialty Start Date End Date Meagan Bowers MD [address] [place] [address] [email or web address] PCP - General Family Medicine 09/19/24 documented as of this encounter Additional Source Comments The information contained in this document represents components of the legal health record. It is not the complete legal health record.[facility]
--- OUTSIDE RECORDS SUMMARY | 2025-02-17 11:03 | XMS_ITS | Encounter Summary ---
Author Organization [facility] Address [address] [facility] [address] [place] [address] Phone Care Team Providers Care Environmental Change Analyst Name Role Phone Jacquelin Long MD Primary Care Provider + Greg Castaneda DO Primary Care Provider Meagan Bowers MD Primary Care Provider Encounter Details Date Type Department Care Team (Latest Contact Info) Description 03/25/2024 Transcribe Orders [facility] Laboratory [address] [phone] Flor Fuller NP 10 [place], [place] [id number] [email or web address] Fatty liver (Primary Dx) Social History Tobacco [...] EDT) WBC 2.86(L) 4.00 - 11.00 K/uL [facility] RBC 4.41 4.00 - 5.20 M/uL [facility] HGB 15.0 12.0 - 16.0 g/dL [facility] HCT 45.4 36.0 - 46.0 % [facility] PLT 103(L) 150 - 450 K/uL [facility] Comment:Microscopic estimate : Platelets slightly decreased. MCV 102.9(H) 80.0 - 100.0 fL [facility] MCH 34.0(H) 27.0 - 31.0 [facility] 33.[facility] 32.0 - 36.0 g/dL [facility] RDW 14.6(H) 11.5 - 14.5 % [facility] MPV 10.5 8.4 - 12.0 fl [facility] NRBC 0.00 0.00 /100 WBCs [facility] ABSOLUTE NRBC 0.00 0.00 K/uL [facility] DIFF METHOD Auto [facility] NEUTS 52.1 48.0 - 76.0 % [facility] LYMPHS 37.1 18.0 - 41.0 % [facility] MONOS 8.4 4.0 - 11.0 % [facility] EOS 1.4 0.0 - 5.0 % [facility] BASOS 0.7 0.0 - 1.5 % [facility] Granulocytes, immature (%) 0.3 0.0 - 0.9 % [facility] ABSOLUTE NEUTS 1.49(L) 1.92 - 7.60 K/uL [facility] ABSOLUTE LYMPHS 1.06 0.72 - 4.10 K/uL [facility] ABSOLUTE MONOS 0.24 0.16 - 1.10 K/uL [facility] ABSOLUTE EOS 0.04 0.00 - 0.50 K/uL [facility] ABSOLUTE BASOS 0.02 0.00 - 0.15 K/uL [facility] Granulocytes, immature 0.01 0.00 - 0.09 K/uL [facility] Blood 03/25/2024 9:29 AM EDT 03/25/2024 9:34 AM EDT us Flor Fuller NP LAB BLOOD ORDERABLES Final Result [facility] [address] [place] [address] * (ABNORMAL) LFTs (hepatic panel) (03/25/2024 9:29 AM EDT) ALKALINE PHOSPHATASE 100 39 - 117 U/L [facility] TOTAL BILIRUBIN 0.5 0.0 - 1.2 mg/dL [facility] DIRECT BILIRUBIN <0.2 0 - 0.3 mg/dL [facility] Bilirubin (Indirect) NOT CALCULATED 0 - 1.5 mg/dL [facility] AST 52(H) 0 - 37 U/L [facility] ALT 24 0 - 40 U/L [facility] TOTAL PROTEIN 7.3 6.5 - 8.0 g/dL [facility] ALBUMIN 3.7(L) 3.9 - 4.8 g/dL [facility] GLOBULIN 3.6 1 - 4.8 g/dL [facility] A/G Ratio 1.03 1.00 - 4.80 RATIO [facility] Blood 03/25/2024 9:29 AM EDT 03/25/2024 9:34 AM EDT Flor Fuller HEEL PRICKER LAB BLOOD ORDERABLES Final Result Performing Organization Address [facility]/ZIP Co de Phone Number [address] [address] * (ABNORMAL) Immunoglobulin A (03/25/2024 9:29 AM EDT) IgA 502(H) 70 - 400 mg/dL [facility] Blood 03/25/2024 9:29 AM EDT 03/25/2024 9:34 AM EDT us Flor Fuller HEEL PRICKER LAB BLOOD ORDERABLES Final Result Performing Organization Address [facility]/ZIP Co de Phone Number [address] [address] * Tissue transglutaminase IgA (03/25/2024 9:29 AM EDT) TTG IGA ANTIBODY 1.3 <4.0 (Negative) U/mL [facility] Blood 03/25/2024 9:29 AM EDT 03/25/2024 9:34 AM EDT Flor Fuller HEEL PRICKER LAB BLOOD ORDERABLES Final Result [facility] [address] [place] [address] * (ABNORMAL) GGT (Gamma glutamyl transferase) (03/25/2024 9:29 AM EDT) GGT 89(H) 7 - 33 U/L [facility] Blood 03/25/2024 9:29 AM EDT 03/25/2024 9:34 AM EDT us Flor Fuller HEEL PRICKER LAB BLOOD ORDERABLES Final Result [facility] [address] [place] [address] documented in this encounter Visit Diagnoses Diagnosis Fatty liver- Primary Other chronic nonalcoholic liver disease documented in this encounter Care Teams Environmental Change Analyst Relationship Specialty Start Date End Date Jacquelin Long MD [email or web address] PCP - General Family Medicine 10/15/23 08/12/24 Greg Castaneda DO [address] [place] [address] PCP - General Internal Medicine 08/13/24 09/18/24 Meagan Bowers MD [address] [place] [address] [email or web address] PCP - General Family Medicine 09/19/24 documented as of this encounter Additional Source Comments The information contained in this document represents components of the legal health record. It is not the complete legal health record.[facility]
--- OUTSIDE RECORDS SUMMARY | 2025-02-17 11:03 | XMS_ITS | Encounter Summary ---
Author Organization [facility] Address [address] [place] [address] [place] [address] Phone Care Team Providers Care Power Marketer Name Role Phone Jacquelin Long MD Primary Care Provider + Greg Castaneda DO Primary Care Provider Meagan Bowers MD Primary Care Provider Encounter Details Date Type Department Care Team (Latest Contact Info) Description 07/31/2024 Transcribe Orders [facility] Laboratory [address] [place] [address] [phone] Flor Fuller NP [address] [place], [place] [phone] [email or web address] Fatty liver (Primary Dx); Nonspecific abnormal results [...] (POPEth) by LC-MS/MS <10 Cutoff: 10 ng/mL [facility] Comment: (NOTE) Phosphatidylethanol [...] (PLPEth) by LC-MS/MS <10 Cutoff: 10 ng/mL [facility] Comment: (NOTE) PEth 16:0/18:2 (PLPEth) Reference ranges are not well established PEth Interpretation Negative. [facility] Comment: (NOTE) ADDITIONAL INFORMATION This report is intended for use in clinical monitoring and management of patients. It is not intended for use in employment-related testing. This test was developed and its performance characteristics determined by [facility] in a manner consistent with CLIA requirements. This test has not been cleared or approved by the U.S. Food and Drug Administration. Blood 07/31/2024 10:2 5 AM EST 07/31/2024 10:34 AM EST Flor Fuller NP LAB BLOOD ORDERABLES Final Result [facility] MED[facility] [address] [place] [address] * (ABNORMAL) Vitamin B12 (07/31/2024 10:25 AM EST) Pathologist [facility] VITAMIN B12 1,563(H) 232 - 1,245 pg/mL [facility] Blood 07/31/2024 10:2 5 AM EST 07/31/2024 10:33 AM EST Flor Fuller NP LAB BLOOD ORDERABLES Final Result Performing Organization Address City/[facility]/ZIP Co de Phone Number [facility] [address] [place] [address] * PT-INR (07/31/2024 10:25 AM EST) Pathologist [facility] PT 10.4 10.2 - 12.9 sec [facility] INR 0.9 0.9 - 1.1 [facility] Comment:Therapeutic range fo r oral Vitamin K antagonists: 2.0-3.5 Blood 07/31/2024 10:2 5 AM EST 07/31/2024 10:33 AM EST Flor Fuller MANAGER COMPLETIONS LAB BLOOD ORDERABLES Final Result Performing Organization Address City/[facility]/ZIP Co de Phone Number [address] [address] * (ABNORMAL) Ferritin (07/31/2024 10:25 AM EST) FERRITIN 403(H) 13 - 150 ug/L [facility] Blood 07/31/2024 10:2 5 AM EST 07/31/2024 10:33 AM EST Flor Fuller MANAGER COMPLETIONS LAB BLOOD ORDERABLES Final Result Performing Organization Address [facility]/ZIP Co de Phone Number [address] [address] * (ABNORMAL) Folate (07/31/2024 10:25 AM EST) FOLIC ACID >20.0(H) 4.2 - 19.9 ng/mL [facility] Blood 07/31/2024 10:2 5 AM EST 07/31/2024 10:33 AM EST Flor Fuller MANAGER COMPLETIONS LAB BLOOD ORDERABLES Final Result Performing Organization Address [facility]/ZIP Co de Phone Number [address] [address] * (ABNORMAL) Iron and iron binding capacity (07/31/2024 10:25 AM EST) IRON 155 30 - 160 ug/dL [facility] IRON BINDING CAPACITY 241 228 - 428 ug/dL [facility] TRANSFERRIN SATURAT. 64(H) 15 - 50 % [facility] Blood 07/31/2024 10:2 5 AM EST 07/31/2024 10:33 AM EST Flor Rodgers Jonny MANAGER COMPLETIONS LAB BLOOD ORDERABLES Final Result Performing Organization Address [facility] Co de Phone Number [address] [address] * LFTs (hepatic panel) (07/31/2024 10:25 AM EST) ALKALINE PHOSPHATASE 96 39 - 117 U/L [facility] TOTAL BILIRUBIN 0.6 0.0 - 1.2 mg/dL [facility] DIRECT BILIRUBIN 0.2 0.0 - 0.2 mg/dL [facility] Bilirubin (Indirect) 0.4 0 - 1.5 mg/dL [facility] AST 36 0 - 37 U/L [facility] ALT 33 0 - 40 U/L [facility] TOTAL PROTEIN 7.7 6.5 - 8.0 g/dL [facility] ALBUMIN 4.0 3.9 - 4.8 g/dL [facility] GLOBULIN 3.7 1 - 4.8 g/dL [facility] A/G Ratio 1.08 1.00 - 4.80 RATIO [facility] Blood 07/31/2024 10:2 5 AM EST 07/31/2024 10:33 AM EST Flor Fuller MANAGER COMPLETIONS LAB BLOOD ORDERABLES Final Result Performing Organization Address [facility] Co de Phone Number [address] [address] * (ABNORMAL) Liver fibrosis test (07/31/2024 10:25 AM EST) Fibrosis score 0.43 [facility] Interpretation (Fibrosis) SEE NOTE [facility] [...] 0.20 Q [facility] NECROINFLAMM GRADE SEE NOTE Q [facility] Comment: (NOTE) Result: A0-A1 NECROINFLAMM INTERP SEE NOTE [facility] [employer]/ [facility] Comment: (NOTE) no activity ActiTest Score (a) [...] A2 Macroglobulin 285(H) 106 - 279 mg/dL [facility]/ [facility] Haptoglobin 123 43 - 212 mg/dL [facility]/ [facility] Apolipoprotein A1 140 101 - 198 mg/dL [facility]/ [facility] TOTAL BILIRUBIN 0.5 0.2 - 1.2 mg/dL [facility] GGT 24 3 - 65 U/L [facility]ST[facility]/ [facility] ALT 33(H) 6 - 29 U/L [facility] [employer]/ [facility] Specimen/Product ID [id number] [facility] [employer]/ [facility] Comments (Chemistry) SEE NOTE [employer]/ [facility] Comment: (NOTE) The reliability of results is dependent on compliance with the preanalytical and analytical conditions recommended by [employer]. The tests have to be deferred for: [...] The performance characteristics have been determined by [facility]. It has not been cleared or approved by the U.S. Food and Drug Administration. Performance characteristics refer to the analytical performance of the test. SynapDx, the associated logo, [employer] and all associated [employer] reyes are the registered trademarks of [employer]. All third democrat reyes - (R) and (TM) - are the property of their respective owners. (C) 8265-2122 [employer]. All rights reserved. Blood 07/31/2024 10:2 5 AM EST 07/31/2024 10:34 AM EST Flor Fuller NP LAB BLOOD ORDERABLES Final Result [employer] [facility] [address] [place] [address], [facility] [phone] * (ABNORMAL) CBC and differential (07/31/2024 10:25 AM EST) WBC 5.34 4.00 - 11.00 K/uL [facility] RBC 4.67 4.00 - 5.20 M/uL [facility] HGB 14.6 12.0 - 16.0 g/dL [facility] HCT 41.8 36.0 - 46.0 % [facility] PLT 211 150 - 450 K/uL [facility] MCV 89.5 80.0 - 100.0 fL [facility] MCH 31.3(H) 27.0 - 31.0 pg [facility] MCHC 34.9 32.0 - 36.0 g/dL [facility] RDW 12.8 11.5 - 14.5 % [facility] MPV 10.1 8.4 - 12.0 fL [facility] NRBC 0.00 0.00 /100 WBCs [facility] ABSOLUTE NRBC 0.00 0.00 K/uL [facility] DIFF METHOD Auto [facility] NEUTS 68.4 48.0 - 76.0 % [facility] LYMPHS 24.9 18.0 - 41.0 % [facility] MONOS 5.4 4.0 - 11.0 % [facility] EOS 0.4 0.0 - 5.0 % [facility] BASOS 0.7 0.0 - 1.5 % [facility] Granulocytes, immature (%) 0.2 0.0 - 0.9 % [facility] ABSOLUTE NEUTS 3.65 1.92 - 7.60 K/uL [facility] ABSOLUTE LYMPHS 1.33 0.72 - 4.10 K/uL [facility] ABSOLUTE MONOS 0.29 0.16 - 1.10 K/uL [facility] ABSOLUTE EOS 0.02 0.00 - 0.50 K/uL [facility] ABSOLUTE BASOS 0.04 0.00 - 0.15 K/uL [facility] Granulocytes, immature 0.01 0.00 - 0.09 K/uL [facility] Blood 07/31/2024 10:2 5 AM EST 07/31/2024 10:33 AM EST us Flor Fuller NP LAB BLOOD ORDERABLES Final Result [facility] [address] [place] [address] documented in this encounter Visit Diagnoses Diagnosis Fatty liver- Primary Other chronic nonalcoholic liver disease Nonspecific abnormal results of liver function study Iron deficiency anemia secondary to blood loss (chronic) documented in this encounter Care Teams Power Marketer Relationship Specialty Start Date End Date Jacquelin Long MD [email or web address] PCP - General Family Medicine 10/15/23 08/12/24 Greg Castaneda DO [address] [place] [address] PCP - General Internal Medicine 08/13/24 09/18/24 Meagan Bowers MD [address] [place] [address] [email or web address] PCP - General Family Medicine 09/19/24 documented as of this encounter Additional Source Comments The information contained in this document represents components of the legal health record. It is not the complete legal health record.[facility]
--- OUTSIDE RECORDS SUMMARY | 2025-02-17 11:03 | XMS_ITS | Encounter Summary ---
Author Organization [facility] Address [address] [facility] [address] [place] [address] Phone Care Team Providers Care Small Parts Assembler Name Role Phone Jacquelin Long MD Primary Care Provider + Greg Castaneda DO Primary Care Provider [phone] Meagan Bowers MD Primary Care Provider [phone] Encounter Details Date Type Department Care Team (Late st Contact Info) Description 12/29/2023 Procedure Pass [facility] Endoscopy Admitting Dept Virtual Department [address] [place], [place] [phone] Social History Tobacco Use Types Packs/Day Years [...] documented as of this encounter Care Teams Small Parts Assembler Relationship Specialty Start Date End Date Jacquelin Long MD [email or web address] PCP - General Family Medicine 10/15/23 08/12/24 Greg Castaneda DO [address] [place] [address] PCP - General Internal Medicine 08/13/24 09/18/24 Meagan Bowers MD [address] [place] [address] [email or web address] PCP - General Family Medicine 09/19/24 documented as of this encounter Additional Source Comments The information contained in this document represents components of the legal health record. It is not the complete legal health record.[facility]
== END 2025-02-17 10:11 | disposition home or self-care (01) ==
LOC: HO.HOS 09:22
PROVIDERS: PCP Internal Medicine; Visit Provider Orthopaedic Surgery
DX: M65.311 Trigger thumb, right thumb (principal); M65.312 Trigger thumb, left thumb; R20.0 Anesthesia of skin; R20.2 Paresthesia of skin; E11.9 Type 2 diabetes mellitus without complications
CPT/HCPCS: 99204

== ENCOUNTER → 2025-02-17 09:27 | Outpatient (BNV) | payer MEDICARE, BC, SELFPAY | PROVIDERS: Visit Provider Radiology Diagnostic Radiology | DX: M19.041 Primary osteoarthritis, right hand (principal); M61.442 Other calcification of muscle, left hand | CPT/HCPCS: 73130 ==

== ENCOUNTER 2025-04-21 08:56 | Outpatient (REF) | payer MEDICARE, BC, SELFPAY ==
--- NOTE | 2025-04-21 09:02 | EMG_ITS ---
Chief complaint: Trigger fingers, hand pain Reason for referral: Evaluate for Carpal Tunnel Syndrome Referred by: Dr. Vivas Procedure done: Bilateral upper extremities NCS/EMG Precautions and/or limitations: None The limb temperature was monitored continuously and remained between 32-36 degrees C during the performance of the NCS. Ulnar motor NCS was performed with moderate elbow flexion between 70-90 degrees, with across-elbow distance of 10 cm. Nerve Conduction Studies Anti Sensory Summary Table ?Stim Site NR Onset (ms) Norm Onset (ms) Peak (ms) Norm Peak (ms) O-P Amp (?V) Norm O-P Amp Site1 Site2 Delta-0 (ms) Dist (cm) Gianluca (m/s) Norm Gianluca (m/s) Left Median Anti Sensory (2nd Digit) Wrist NR <3.6 >10 Wrist 2nd Digit 14.0 Right Median Anti Sensory (2nd Digit) Wrist NR <3.6 >10 Wrist 2nd Digit 14.0 Right Radial Anti Sensory (Thumb) Forearm ? 1.8 2.4 <3.1 27.7 Forearm Thumb 1.8 0.0 Left Ulnar Anti Sensory (5th Digit) Wrist ? 3.0 3.9 <3.7 24.2 >15.0 Wrist 5th Digit 3.0 14.0 47 Right Ulnar Anti Sensory (5th Digit) Wrist ? 3.2 3.9 <3.7 10.2 >15.0 Wrist 5th Digit 3.2 14.0 44 Motor Summary Table ?Stim Site NR Onset (ms) Norm Onset (ms) O-P Amp (mV) Norm O-P Amp iAmp (mV) Amp (1st) (%) Site1 Site2 Delta-0 (ms) Dist (cm) Gianluca (m/s) Norm Gianluca (m/s) Left Median Motor (Abd Poll Brev) Wrist ? 5.2 <3.9 6.5 >4.5 8.5 100.0 Elbow Wrist 3.8 17.5 46 >45 Elbow ? 9.0 6.3 8.2 96.9 Right Median Motor (Abd Poll Brev) Wrist ? 6.6 <3.9 4.3 >4.5 5.5 100.0 Elbow Wrist 3.8 18.0 47 >45 Elbow ? 10.4 4.1 5.4 95.3 Left Ulnar Motor (Abd Dig Minimi) Wrist ? 3.2 <3.0 5.9 >5 6.7 100.0 B Elbow Wrist 3.5 16.0 46 >45 B Elbow ? 6.7 5.5 6.4 93.2 A Elbow B Elbow 2.1 10.0 48 >45 A Elbow ? 8.8 4.8 5.7 81.4 Right Ulnar Motor (Abd Dig Minimi) Wrist ? 3.0 <3.0 5.6 >5 6.1 100.0 B Elbow Wrist 3.5 18.0 51 >45 B Elbow ? 6.5 5.2 5.8 92.9 A Elbow B Elbow 1.7 10.0 59 >45 A Elbow ? 8.2 5.1 5.7 91.1 EMG ?Side Muscle Nerve Root Ins Act Fibs Psw Amp Dur Poly Recrt Int Pat Comment Right 1stDorInt Ulnar C8-T1 Nml Nml Nml Nml Nml 0 Nml Complete Right FlexCarRad Median C6-7 Nml Nml Nml Nml Nml 0 Nml Complete Right FlexCarpiUln Ulnar C8,T1 Nml Nml Nml Nml Nml 0 Nml Complete Right Biceps Musculocut C5-6 Nml Nml Nml Nml Nml 0 Nml Complete Right Deltoid Axillary C5-6 Nml Nml Nml Nml Nml 0 Nml Complete Left 1stDorInt Ulnar C8-T1 Nml Nml Nml Nml Nml 0 Nml Complete Left FlexCarRad Median C6-7 Nml Nml Nml Nml Nml 0 Nml Complete Left FlexCarpiUln Ulnar C8,T1 Nml Nml Nml Nml Nml 0 Nml Complete Left Biceps Musculocut C5-6 Nml Nml Nml Nml Nml 0 Nml Complete Left Deltoid Axillary C5-6 Nml Nml Nml Nml Nml 0 Nml Complete FINDINGS: Right median motor nerve showed prolonged distal latency, small amplitude and normal conduction velocity. Left median motor nerve showed prolonged distal latency, normal amplitude and normal conduction velocity. Left ulnar motor nerve showed prolonged distal latency, normal amplitude and normal conduction velocity. Bilateral median sensory nerves showed absent response. Right ulnar sensory nerve showed small amplitude and prolonged peak latency. Left ulnar sensory nerve showed prolonged peak latency. All other nerves tested were within normal. Concentric needle EMG was performed in selected muscles of the bilateral upper extremities. Study did not reveal signs of electric abnormalities as shown in the table above. IMPRESSION: 1. This is an abnormal study. 2. There is electrodiagnostic evidence for bilateral moderate-severe median neuropathy at the wrist, consistent with carpal tunnel syndrome. 3. There is evidence for chronic bilateral ulnar neuropathy, more severe on left than right, both poorly localizable. 4. There is no electrodiagnostic evidence for brachial plexopathy or cervical radiculopathy. Thank you for your kind referral. Marlen Juarez MD, RUBÉN Board Certified, [place] Board of Physical Medicine and Rehabilitation (ABPMR) Board Certified, [place] Board of Electrodiagnostic Medicine (ABEM) CODIN [phone] x 2 extremities MTDD
--- OUTSIDE RECORDS SUMMARY | 2025-04-21 16:35 | XMS_ITS | Encounter Summary ---
Author Organization [facility] Address [address] [place] [address] Phone Care Team Providers Care Financial Institution Manager Name Role Phone Dhirajdevanazar Laurie Heart DO Primary Care Provider Jacquelin Long MD Primary Care Provider + Greg Castaneda DO Primary Care Provider [phone] Meagan Bowers MD Primary Care Provider [phone] Encounter Details Date Type Department Care Team (Latest Contact Info) Description 02/21/2023 Transcribe Orders Virtual Department [address] [place] [address] Jacquelin Long MD [address] [place], [place] [phone] [email or web address] Asymptomatic menopausal state (Primary [...] documented as of this encounter Care Teams Financial Institution Manager Relationship Specialty Start Date End Date Laurie Estrada DO [address] [place] [address] PCP - General Internal Medicine 12/24/16 10/14/23 Jacquelin Long MD [address] [place] [address] [email or web address] PCP - General Family Medicine 10/15/23 08/12/24 Greg Castaneda DO [address] [place] [address] PCP - General Internal Medicine 08/13/24 09/18/24 Meagan Bowers MD [address] [place] [address] PCP - General Family Medicine 09/19/24 documented as of this encounter Additional Source Comments The information contained in this document represents components of the legal health record. It is not the complete legal health record.[facility]
--- OUTSIDE RECORDS SUMMARY | 2025-04-21 16:35 | XMS_ITS | Encounter Summary ---
Author Organization [facility] Address [address] [facility] [address] [place] [address] Phone Care Team Providers Care Sugar Boiler Name Role Phone Natalie Laurie Heart DO Primary Care Provider [phone] Jacquelin Long MD Primary Care Provider + Greg Castaneda DO Primary Care Provider Meagan Bowers MD Primary Care Provider Encounter Details Date Type Department Care Team (Latest Contact Info) Description 10/14/2023 Hospital Encounter Katharina Amado MD [address] [place] [address] [email or web address] Social History Tobacco Use Types Packs/Day Years [...] 12:16 AM EDT Verona Navarro RN * [place] Suicide Severity Rating Scale (Screener/Recent Self-Report) Question [...] NOTE SITUATIONAL AWARENESS: Name of transferring hospital: [facility] Name of transferring physician: Dr Diggs Contact number for transferring physician: [phone] Contact number of transferring floor: [phone] Name of patient's HCP: Unknown Contact number [...] high-risk of requiring intensive care unit at [facility] (i.e., at high risk of needing pressor support, respiratory support [e.g., non-invasive positive pressure support or intubation] or high nursing needs) Watch Current clinical status (i.e., vital signs, vital sign trend, or laboratory data) that indicates this patient is at moderate-risk of requiring intensive care unit at [facility] AND/OR the patient was in the intensive care unit at the transferring hospital within the past 24 hours Stable Current clinical status (i.e., vital signs, vital sign trend, or laboratory data) that indicates this patient is at low-risk of requiring intensive care unit at [facility] AND/OR the patient was in the intensive [...] additional clinical information in the following locations: [facility] Chart Review => Encounters => [facility] Admissions => right hand side is timeline [...] documented as of this encounter Care Teams Sugar Boiler Relationship Specialty Start Date End Date Laurie Estrada DO [address] [place] [address] PCP - General Internal Medicine 12/24/16 10/14/23 Jacquelin Long MD [address] [place] [address] [email or web address] PCP - General Family Medicine 10/15/23 08/12/24 Greg Castaneda DO [address] [place] [address] PCP - General Internal Medicine 08/13/24 09/18/24 Meagan Bowers MD [address] [place] [address] [email or web address] PCP - General Family Medicine 09/19/24 documented as of this encounter Additional Source Comments The information contained in this document represents components of the legal health record. It is not the complete legal health record.[facility]
--- OUTSIDE RECORDS SUMMARY | 2025-04-21 16:36 | XMS_ITS | Encounter Summary ---
Author Organization [facility] Address [address] [facility] [address] [place] [address] Phone Care Team Providers Care Trial Court Justice Name Role Phone Jacquelin Long MD Primary Care Provider + Greg Castaneda DO Primary Care Provider [phone] Meagan Bowers MD Primary Care Provider [phone] Encounter Details Date Type Department Care Team (Late st Contact Info) Description 12/29/2023 Procedure Pass [facility] Endoscopy Admitting Dept Virtual Department [address] [place], [place] [phone] Social History Tobacco Use Types Packs/Day Years [...] documented as of this encounter Care Teams Trial Court Justice Relationship Specialty Start Date End Date Jacquelin Long MD [email or web address] PCP - General Family Medicine 10/15/23 08/12/24 Greg Castaneda DO [address] [place] [address] PCP - General Internal Medicine 08/13/24 09/18/24 Meagan Bowers MD [address] [place] [address] [email or web address] PCP - General Family Medicine 09/19/24 documented as of this encounter Additional Source Comments The information contained in this document represents components of the legal health record. It is not the complete legal health record.[facility]
--- OUTSIDE RECORDS SUMMARY | 2025-04-21 16:36 | XMS_ITS | Encounter Summary ---
Author Organization [facility] Address [address] [facility] [address] [place] [address] Phone Care Team Providers Care Feeder Loader Name Role Phone Meagan Bowers MD Primary Care Provider Encounter Details Date Type Department Care Team (Late st Contact Info) Description 09/19/2024 Procedure Pass [facility] Scan - [address] [address] Social History Tobacco Use Types Packs/Day Years [...] 12:16 AM EDT Verona Navarro RN * [place] Suicide Severity Rating Scale (Screener/Recent Self-Report) Question [...] on filedocumented in this encounter Care Teams Feeder Loader Relationship Specialty Start Date End Date Meagan Bowers MD [address] [place] [address] [email or web address] PCP - General Family Medicine 09/19/24 documented as of this encounter Additional Source Comments The information contained in this document represents components of the legal health record. It is not the complete legal health record.[facility]
--- OUTSIDE RECORDS SUMMARY | 2025-04-21 16:36 | XMS_ITS | Encounter Summary ---
Author Organization [facility] Address [address] [place] [address] Phone Care Team Providers Care Edge Stainer Name Role Phone Laurie Estrada DO Primary Care Provider [phone] Laurie Estrada DO Unavailable [phone] Jacquelin Long MD Primary Care Provider + Greg Castaneda DO Primary Care Provider Meagan Bowers MD Primary Care Provider Encounter Details Date Type Department Care Team (Late st Contact Info) Description 01/21/2019 Procedure Pass [facility] Endoscopy Admitting Dept Virtual Department 30 [place], [place] [phone] Social History Tobacco Use Types Packs/Day Years [...] documented as of this encounter Care Teams Edge Stainer Relationship Specialty Start Date End Date Laurie Estrada DO [address] [place] [address] PCP - General Internal Medicine 12/24/16 10/14/23 Jacquelin Long MD [address] [place] [address] [email or web address] PCP - General Family Medicine 10/15/23 08/12/24 Greg Castaneda DO [address] [place] [address] PCP - General Internal Medicine 08/13/24 09/18/24 Meagan Bowers MD [address] [place] [address] [email or web address] PCP - General Family Medicine 09/19/24 Laurie Estrada DO [address] [place] [address] Insurance Assigned Provider 10/05/17 02/07/19 documented as of this encounter Additional Source Comments The information contained in this document represents components of the legal health record. It is not the complete legal health record.[facility]
--- OUTSIDE RECORDS SUMMARY | 2025-04-21 16:36 | XMS_ITS | Encounter Summary ---
Author Organization [facility] Address [address] [place] [address] Phone Care Team Providers Care Head Of Digital Name Role Phone Laurie Estrada DO Primary Care Provider [phone] Laurie Estrada DO Unavailable [phone] Jacquelin Long MD Primary Care Provider + Greg Castaneda DO Primary Care Provider Meagan Bowers MD Primary Care Provider Encounter Details Date Type Department Care Team (Latest Contact Info) Description 09/09/2017 Transcribe Orders [facility] Phleb Lisbeth [address] [place], [place] [phone] Bolivar Arteaga MD [address] [phone] Lower GI bleeding (Primary Dx) Social History [...] EDT) FERRITIN 21 13 - 150 ug/L [facility] Blood 09/09/2017 3:14 PM EDT 09/09/2017 3:18 PM EDT us Bolivar Arteaga MD LAB BLOOD BKR ORDERABLES Fin al Result Performing Organization Address City/[facility]/ZIP Co de Phone Number [address] [address] * (ABNORMAL) Iron and iron binding capacity (09/09/2017 3:14 PM EDT) IRON 33 30 - 160 ug/dL [facility] IRON BINDING CAPACITY 510(H) 228 - 428 ug/dL [facility] TRANSFERRIN SATURAT. 6(L) 15 - 50 % [facility] Blood 09/09/2017 3:14 PM EDT 09/09/2017 3:18 PM EDT us Bolivar Arteaga MD LAB BLOOD BKR ORDERABLES Fin al Result Performing Organization Address City/[facility] Co de Phone Number [address] [address] * (ABNORMAL) CBC and differential (09/09/2017 3:14 PM EDT) WBC 4.63 3.40 - 11.20 K/uL [facility] RBC 3.54(L) 3.80 - 4.80 M/uL [facility] HGB 10.5(L) 12.0 - 15.0 g/dL [facility] HCT 32.5(L) 36.0 - 46.0 % [facility] PLT 248 130 - 400 K/uL [facility] MCV 91.8 79.0 - 98.0 fL [facility] MCH 29.7 27.0 - 34.8 pg [facility] MCHC 32.3 31.5 - 36.0 g/dL [facility] RDW 13.5 10.8 - 14.6 % [facility] MPV 10.0 9.4 - 12.4 fl [facility] NRBC 0.00 /100 WBCs [facility] ABSOLUTE NRBC 0.00 K/uL [facility] DIFF METHOD Auto [facility] NEUTS 59.9 45.30 - 77.70 % [facility] LYMPHS 30.2 12.30 - 39.70 % [facility] MONOS 8.2 4.10 - 12.80 % [facility] EOS 1.1 0 - 7.2 % [facility] BASOS 0.6 0 - 2.80 % [facility] Granulocytes, immature (%) 0.0 0.0 - 0.9 % [facility] ABSOLUTE NEUTS 2.77 1.40 - 7.70 K/uL [facility] ABSOLUTE LYMPHS 1.40 0.60 - 3.20 K/uL [facility] ABSOLUTE MONOS 0.38 0.11 - 0.59 K/uL [facility] ABSOLUTE EOS 0.05 0.01 - 0.50 K/uL [facility] ABSOLUTE BASOS 0.03 0.00 - 0.08 K/uL [facility] Granulocytes, immature 0.00 0.00 - 0.05 K/uL [facility] Blood 09/09/2017 3:14 PM EDT 09/09/2017 3:18 PM EDT us Bolivar Aretaga MD LAB BLOOD BKR ORDERABLES Fin al Result Performing Organization Address City/State/[facility] Co de Phone Number [facility] [address] [place] [address] documented in this encounter Visit Diagnoses Diagnosis Lower GI bleeding- Primary Unspecified, hemorrhage of gastrointestinal tract documented in this encounter Additional Health Concerns Infection Onset Date Last Indicated Resolved Time CoV-Risk 01/25/2024 01/25/2024 02/05/2024 1:22 AM EDT documented as of this encounter Care Teams Head Of Digital Relationship Specialty Start Date End Date Laurie Estrada DO [address] [place] [address] PCP - General Internal Medicine 12/24/16 10/14/23 Jacquelin Long MD [address] [place] [address] [email or web address] PCP - General Family Medicine 10/15/23 08/12/24 Grge Castaneda DO [address] [place] [address] PCP - General Internal Medicine 08/13/24 09/18/24 Meagan Bowers MD [address] [place] [address] [email or web address] PCP - General Family Medicine 09/19/24 Laurie Estrada DO [address] [place] [address] Insurance Assigned Provider 10/05/17 02/07/19 documented as of this encounter Additional Source Comments The information contained in this document represents components of the legal health record. It is not the complete legal health record.[facility]
--- OUTSIDE RECORDS SUMMARY | 2025-04-21 16:36 | XMS_ITS | Encounter Summary ---
Author Organization [facility] Address [address] [place] [address] Phone Care Team Providers Care Heavy Coil Winder Name Role Phone Laurie Estrada DO Primary Care Provider [phone] Laurie Estrada DO Unavailable [phone] Jacquelin Long MD Primary Care Provider + Greg Castaneda DO Primary Care Provider Meagan Bowers MD Primary Care Provider Encounter Details Date Type Department Care Team (Latest Contact Info) Description 12/30/2017 Transcribe Orders [facility] Phleb Lisbeth [address] [place], [place] [phone] Bolivar Arteaga MD [address] [phone] Hx of colonic polyps (Primary Dx) Social [...] documented as of this encounter Care Teams Heavy Coil Winder Relationship Specialty Start Date End Date Laurie Estrada DO [address] [place] [address] PCP - General Internal Medicine 12/24/16 10/14/23 Jacquelin Long MD [address] [place] [address] [email or web address] PCP - General Family Medicine 10/15/23 08/12/24 Greg Castaneda DO [address] [place] [address] PCP - General Internal Medicine 08/13/24 09/18/24 Meagan Bowers MD [address] [place] [address] [email or web address] PCP - General Family Medicine 09/19/24 Laurie Estrada DO [address] [place] [address] Insurance Assigned Provider 10/05/17 02/07/19 documented as of this encounter Additional Source Comments The information contained in this document represents components of the legal health record. It is not the complete legal health record.[facility]
--- OUTSIDE RECORDS SUMMARY | 2025-04-21 16:36 | XMS_ITS | Encounter Summary ---
Author Organization [facility] Address [address] [facility] [address] [place] [address] Phone Care Team Providers Care Motel Manager Name Role Phone Meagan Bowers MD Primary Care Provider [phone] Encounter Details Date Type Department Care Team (Late st Contact Info) Description 09/21/2024 Procedure Pass [place] Admitting Dept - Virtual Department [address] [place] [address] Social History Tobacco Use Types Packs/Day Years [...] on filedocumented in this encounter Care Teams Motel Manager Relationship Specialty Start Date End Date Meagan Bowers MD [address] [place] [address] PCP - General Family Medicine 09/19/24 documented as of this encounter Additional Source Comments The information contained in this document represents components of the legal health record. It is not the complete legal health record.[facility]
--- OUTSIDE RECORDS SUMMARY | 2025-04-21 16:36 | XMS_ITS | Data Portability ---
Author Organization [facility], JAYY Mock Address [address] [place] [address] Care Team Providers Care Driller Helper Name Role Phone IRINEO AGOSTO Primary Care Provider [phone] Assessment Encounter Date Assessment Date Assessment LastModified by Organization Details LastModified Time 04/16/2025 04/16/2025 History: Patient is a 69-year-old female presents to me for evaluation of left-sided knee pain. She has had knee pain for over 10 years. Cortisone provided no relief. She wears an sausage mixer brace which is very helpful. Takes Celebrex for discomfort. Pain level is 8/10. She reports difficulty with stairs and getting out of a chair. She ambulates with a walker. She has difficulty kneeling and squatting. She reports a limp. PMH/PSH/MEDS/ALL/F MH/SOC HX/ROS are reviewed in detail per my medical intake sheet. General Exam: Vital signs are as noted below Mental status: Alert and lucid. Normal insight, affect and grooming. TEMPERING OVEN OPERATOR: Gross motor coordination is intact. No spasticity or clonus noted. Extremities: Calves are soft nontender, skin intact Orthopedic Examination: Right Knee: Neutral alignment. Full range of motion. No instability or effusion. Left Knee: Varus alignment. Range of motion 0-120. Severe tenderness and crepitus medially. Mild instability. No effusion. Antalgic gait pattern favoring the left side. Full strength and sensation distally X-rays: Radiographs reviewed from her previous visit including a standing AP, Nguyen view, nonweightbearing lateral views, and merchant view. These radiographs demonstrate end-stage osteoarthrits of the left knee. There is lwmw-ou-cemm articulation, subchondral sclerosis, and osteophyte formation. Assessment: End-stage osteoarthritis of the left knee which has failed greater than 3 months of nonoperative treatment including medication, activity modification, and injections. The patient is in too much discomfort to participate in any meaningful physical therapy. PLAN: The patient was thoroughly counseled today regarding their knee condition, its natural history and the options, both operative and non-operative. The nature of knee replacement surgery, the potential risks, benefits, and complications, the magnitude of the surgery, the intensity of postoperative recovery as well as its elective nature were explained at length today. Although it is impossible to list all of the possible complications of any operation or procedure, I explained that some of the major complications that may arise include the following: Blood loss requiring transfusion, infection (early or late), blood clots, dislocation, pain (persistent or new), scars numbness or tenderness, unequal leg lengths, weakness, stiffness, loss of motion, clicking of implant, calcification, fracture of bone, instability of leg, nerve damage (paralysis or numbness), blood vessel damage, implant loosening, implant breakage, wearing of the implant, need for future surgery, allergic reaction, metal toxicity, medical complications including confusion, heart attack, stroke, or ). Issues regarding lifelong infection and activity precautions were reviewed. The longevity of the implants was discussed. The patient understands the potential need for revision surgery. We discussed performing the surgery in either an inpatient or outpatient setting as well as the pros and cons of both. The patient has elected to proceed in a inpatient setting. The patient will require clearance from a medical doctor prior to surgery. The patient wishes to schedule an elective total knee replacement at this time. Next planned follow-up is at the history and physical. The patient knows I will be happy to meet with them at any time in order to review any additional questions or concerns that they might have. Not available 04/16/2025 09:38:24 Plan of Treatment Reminders Order Date Submit Date Provider Last Modified By Organization Details Last Modified Time Details Appointments SURGERY @ [facility] 2025 11:30A Chi Robin MD Not available Not available Not available POST OP 15 2025 11:00A M Joseline Miller CNP Not available Not available Not available RECHECK 10 2025 01:30P Chi Robin MD Not available Not available Not available Lab None recorded. Referral None recorded. Procedures None recorded. Surgeries None recorded. Imaging XR, knee, 4 or more view - RM 312 LEFT KNEE 4V 2024 025 kwasi [facility], [address], [facility] [address], [place], [address], 03/09/2025 10:19:40 Medication Orders Celebrex 200 mg capsule 2024 025 kwasi [facility] #[id number], [address] [place], [address], 03/09/2025 10:38:48 Patient TargetsNo targets recorded. Patient InstructionsNo instructions recorded. Reason for Referral None Reported. Results Created Date Observation Date Name Description Value Unit Range Abnormal Flag Note LastModifiedBy Organization Detail LastModifiedTime 03/09/2003/09/2025 XR, knee, 4 or more view http:/ [email or web address] ?Encry pted=s hAaTro YD8dLq bEUv6g %2BXZw aYqtaq 0bqfl% 2Fg9IQ a4ajBk vP9nXo QUaueC m3YtLR FvZlgJ JJ8mAn HZtai3 1y1995 AC0Klb XmMWKS uKiQtr MwF INTERFACE [facility] [address] [facility] [address], [place], [address], 03/09/2025 10:12:36 03/09/2003/09/2025 XR, knee, 4 or more view http:/ [email or web address] ?Encry pted=s hAaTro YD8dLq bEUv6g %2BXZw aYqtaq 0bqfl% 2Fg9IQ a4ajBk vP9nXo QUaueC m3YtLR FvZlgJ JJ8mAn HZtai3 9q1284 AC0Klb XmMWKS uKiQtr MwF INTERFACE [facility] [address], [place], [address], 03/09/2025 10:12:38 Result Notes Documentation Provider Name and Address Organization Details Recorded Time Xr, Knee, 4 Or More View : [email or web address] Encrypted=blUaTgnYL9gTwhB Uv6g%2BKUonEiced6zeib%2Fg 4WBx3uoWcoJ4oMoVGokxTa4Qp XQZsMpqZLN8tNwKJfvk23w043 1WL1DqsVbOIYSeVtUysXfE Not Available [facility] 03/09/2025 10:12: 36 Xr, Knee, 4 Or More View : [email or web address] Encrypted=nwYtHwpMV7eCirT Uv6g%7RCCraLyzno1ffel%2Fg 0GWh4jfNgyQ4nIcJQygmNm8Lx UUOiVrcFXC9jPpEQadx19a253 9JN7VrkHdLARYpAxVmzEeY Not Available [facility] 03/09/2025 10:12: 38 Medical Equipment None Reported. Allergies Allergen ID Allergen Name Allergen Category Reaction Reaction Severity Criticality Documentation Date Start Date Code Code System Note Provider Name and Address Organization Details Recorded Time 317172 codeine medicatio n Not available Not available [facility] 04/16/20252011 2670 RxNorm unrec ogniz ed react ion (text : GI Upset , code: 37767 005) (from exter nal sour e) Not Available [employer] - prod 5 04:06:28 790407 meclizine medicatio n other Not available [facility] 04/16/20252011 6676 RxNorm Dizzi ness, rash Not Available [employer] - prod 04:06:28 298402 medroxypr ogesteron e medicatio n anaphylax is Not available [facility] 04/16/20252011 6691 RxNorm Not Available [employer] - prod 5 04:06:28 081704 nystatin medicatio n Not available Not available Not available 04/16/20252023 7597 RxNorm Not Available glo - [employer] - prod 5 04:06:28 130598 apremilas t medicatio n diarrhea Not available high 04/16/20252021 51822 27 RxNorm Sever e depre ssion Not Available glo - [employer] - prod 5 04:06:28 506813 simvastat in medicatio n rash Not available low 04/16/20252018 00942 RxNorm Not Available glo - [employer] - prod 5 04:06:28 737253 Product containin g 3-hydroxy -3-methyl glutaryl- coenzyme A reductase inhibitor (product) medicatio n myalgias (muscle pain) Not available high 04/16/20252024 33803 009 SNOMED Not Available [employer] - prod 5 04:06:28 Medications Name Sig Start Date Stop Date Status Note LastModified by Organization Details LastModified Time celecoxib 200 mg capsule TAKE 1 CAPSULE BY MOUTH EVERY DAY active Not Available Not Available No t Available atorvastati n 20 mg tablet TAKE 1 TABLET BY MOUTH EVERY DAY IN THE EVENING active Not Available Not Available No t Available FreeStyle Lancets 28 gauge USE TWICE DAILY DIRECTED FOR MONITORIN G GLUCOSE, active Not Available Not Available No t Available clonazepam 0.5 mg tablet TAKE 1 TABLET EVERY DAY BY ORAL ROUTE NEEDED. active Not Available Not Available No t Available clonazepam 1 mg tablet TAKE 1 TABLET BY MOUTH EVERYDAY AT BEDTIME active Not Available Not Available No t Available disulfiram 250 mg tablet Take 1 tablet every day by oral route. active Not Available Not Available No t Available ropinirole 0.25 mg tablet PLEASE SEE ATTACHED FOR DETAILED DIRECTION S active Not Available Not Available No t Available cephalexin 500 mg capsule TAKE 1 CAPSULE BY MOUTH EVERY 12 HOURS FOR 7 DAYS 03/09 completed Not Available Not Available Not Available pantoprazol e 40 mg tablet,agu[place] yed release TAKE 2 TABLETS BY MOUTH EVERY DAY active Not Available Not Available No t Available clonazepam 2 mg tablet TAKE 1 TABLET BY MOUTH EVERYDAY AT BEDTIME FOR 28 DAYS active Not Available Not Available No t Available gabapentin 300 mg capsule TAKE 1 CAPSULE BY MOUTH DAILY AT 4 PM AND 1 CAPSULE AT BEDTIME. active Not Available Not Available No t Available ondansetron 4 mg disintegrat ing tablet DISSOLVE 1 TABLET IN THE MOUTH EVERY 8 HOURS active Not Available Not Available No t Available metformin ER 500 mg tablet,exte nded release 24 hr TAKE 1 TABLET EVERY DAY BY ORAL ROUTE, FOR DIABETES. active Not Available Not Available No t Available atenolol 50 mg tablet TAKE 1 TABLET BY MOUTH EVERY DAY active Not Available Not Available No t Available oxycodone 5 mg tablet TAKE 1/2 TABLET BY MOUTH EVERY DAY active Not Available Not Available No t Available Alcohol Prep Pads USE TWICE DAILY DIRECTED FOR MONITORIN G GLUCOSE, DX CODE E11.9 active Not Available Not Available No t Available nitrofurant oin monohydrate /macrocryst als 100 mg capsule TAKE 1 CAPSULE BY MOUTH TWICE A DAY FOR 5 DAYS 03/09 completed Not Available Not Available Not Available acamprosate 333 mg tablet,aguila yed release TAKE 2 TABLETS BY MOUTH THREE TIMES DAILY active Not Available Not Available No t Available FreeStyle Lite Meter kit USE TWICE DAILY DIRECTED FOR MONITORIN G GLUCOSE, DX CODE E11.9 active Not Available Not Available No t Available FreeStyle Lite Strips USE TWICE DAILY DIRECTED FOR MONITORIN G GLUCOSE, active Not Available Not Available No t Available BD Anne 2nd Gen Pen Needle 32 gauge x 5/32 USE ONCE DAILY TO ADMNISTER INSULIN DIRECTED 04/16 completed Not Available Not Available Not Available insulin glargine-yf gn (U-100) 100 unit/mL (3 mL) subcutaneou s pen PLEASE SEE ATTACHED FOR DETAILED DIRECTION S active Not Available Not Available No t Available Vitals Date Recorded Body height Body mass index (BMI) Body weight Provider Name and Address Organization Details Last Updated DateTime 03/09/2025 154.94 cm 23.1 kg/m2 38878.27 g Diana Back [facility] 03/09/2025 10:47:21 Date Recorded Body height Body mass index (BMI) Body weight Provider Name and Address Organization Details Last Updated DateTime 04/16/2025 153.67 cm 24.2 kg/m2 32551.64 g TOY SEVERINO [facility] 04/16/2025 09:01:42 Social History None recorded. Functional Status None recorded. Mental Status None recorded. Family History Nothing Reported. Medical History No medical history recorded. Gynecological HistoryNo gynecological history recorded. Obstetrics History GPAL:G 0 P 0 0 0 0 Past Encounters Encounter ID Performer Location Encounter Start Date Encounter Closed Date Diagnosis/Indication Diagnosis SNOMED-CT Code Diagnosis ICD10 Code Diagnosis IMO Codes Diagnosis Note [id number] Karissa Beltrán PA-C [facility] [address] [place] [address] 03/09/2025 09:47:50 03/19/2025 10:29:54 Pain of left knee joint 5319771936 23629 M25.562 080288 Osteoarthr itis of left knee joint 0771390648 82951 M17.12 2370183 [id number] [facility]ad Robin [facility] [address] [address] [place] [address] 04/16/2025 08:39:37 04/16/2025 09:38:38 Osteoarthritis of left knee joint 5667200640 41279 M17.12 8201935 Health Concerns Section Related Observation LastModified by Organization Detai ls LastModified Time None Recorded Concern Status LastModified by Organization Details LastModified Time None Recorded Advance Directives Directive None Recorded Payers Insurance Date Sequence Insurance Name Policy Number Policy Mora Covered Member ID Mora Member ID Guarantor Name 04/16/2025 2 [place] [id number] Jossie Maradiaga [id number] Jossie Maradiaga 04/16/2025 1 [place] [employer] [place] Jossie Maradiaga [id number] Jossie Maradiaga Notes Date Note Type Note Provider Name and Address Organization Details Recorded Time 03/09/2025 text/html I am seeing the patient today under the supervision of Dr. Fraire who was available but who did not see the patient. HPI: Patient presents today regarding their left knee. They have had difficulty up and down stairs sitting standing. Problems ambulating. Vpoo-nqz-wqpncvb medications are helping somewhat but not significantly. Pain is constant aching sometimes sharp pain with giving out sensations. Past family, medical, social history and review of systems has been reviewed, updated and is located in the patient s chart. Examination: The patient is well appearing and in no apparent distress. Alert and oriented x3. Gait is symmetric. Examination of the left knee reveals no evidence of any edema, erythema, or warmth. No Deformity. Range of motion of the knee limited with mild discomfort at the end ranges. Mild effusion. Does have some tenderness to palpation about the joint line. Negative Alvin s . Calf is supple and nontender. Neurovascularly intact distally. 4 X-ray views of the knee were independently reviewed today showed narrowing of the medial compartment of the knee. Subchondral sclerosis and osteophyte formation present. No evidence of any other bony lesions or pathology. Impression: left Knee osteoarthritis Plan: We discussed the role of conservative management including medications, physical therapy, injection and bracing. At this point the patient wishes to proceed with prescription today. Celebrex prescribed after discussion of risks and benefits. Consult appt made for TKA. They will follow up with us as scheduled. All questions answered Karissa Beltrán PA-C [address], [place], [address], [facility] 03/09/2025 10:37:08 OBGyn Episode No OBEpisode recorded.
--- OUTSIDE RECORDS SUMMARY | 2025-04-21 16:36 | XMS_ITS | Encounter Summary ---
Author Organization [facility] Address [address] [place] [address] Phone Care Team Providers Care Inset Cutter Name Role Phone Jacquelin Long MD Primary Care Provider + Greg Castaneda DO Primary Care Provider [phone] Meaagn Bowers MD Primary Care Provider Encounter Details Date Type Department Care Team (Late st Contact Info) Description 12/28/2023 Procedure Pass [facility]oscopy Admitting Dept Virtual Department [address] [place], [place] [id number] Social History Tobacco Use Types Packs/Day Years [...] documented as of this encounter Care Teams Inset Cutter Relationship Specialty Start Date End Date Jacquelin Long MD [email or web address] PCP - General Family Medicine 10/15/23 08/12/24 Greg Castaneda DO [address] [place] [address] PCP - General Internal Medicine 08/13/24 09/18/24 Meagan Bowers MD [address] [place] [address] [email or web address] PCP - General Family Medicine 09/19/24 documented as of this encounter Additional Source Comments The information contained in this document represents components of the legal health record. It is not the complete legal health record.[facility]
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
--- OUTSIDE RECORDS SUMMARY | 2025-04-21 16:36 | XMS_ITS | Encounter Summary ---
Author Organization [facility] Address [address] [place] [address] Phone Care Team Providers Care Scientific Associate Name Role Phone Jacquelin Long MD Primary Care Provider + Greg Castaneda DO Primary Care Provider [phone] Meagan Bowers MD Primary Care Provider Encounter Details Date Type Department Care Team (Late st Contact Info) Description 12/28/2023 Procedure Pass [facility], Ct Scan - [address] [id number] Social History Tobacco Use Types Packs/Day Years [...] documented as of this encounter Care Teams Scientific Associate Relationship Specialty Start Date End Date Jacquelin Long MD [email or web address] PCP - General Family Medicine 10/15/23 08/12/24 Greg Castaneda DO [address] [place] [address] PCP - General Internal Medicine 08/13/24 09/18/24 Meagan Bowers MD [address] [place] [address] [email or web address] PCP - General Family Medicine 09/19/24 documented as of this encounter Additional Source Comments The information contained in this document represents components of the legal health record. It is not the complete legal health record.[facility]
--- OUTSIDE RECORDS SUMMARY | 2025-04-21 16:36 | XMS_ITS | Encounter Summary ---
Author Organization [facility] Address [address] [place] [address] Phone Care Team Providers Care Sapphire Stylus Grinder Name Role Phone Laurie Estrada DO Primary Care Provider [phone] Laurie Estrada DO Unavailable [phone] Jacquelin Long MD Primary Care Provider + Greg Castaneda DO Primary Care Provider [phone] Meagan Bowers MD Primary Care Provider [phone] Encounter Details Date Type Department Care Team (Late st Contact Info) Description 10/11/2017 Procedure Pass [facility] Endoscopy Admitting Dept [facility] Department [address] [place], [place] [id number] Social History Tobacco Use Types Packs/Day Years [...] documented as of this encounter Care Teams Sapphire Stylus Grinder Relationship Specialty Start Date End Date Laurie Estrada DO [address] [place] [address] PCP - General Internal Medicine 12/24/16 10/14/23 Jacquelin Long MD [address] [place] [address] [email or web address] PCP - General Family Medicine 10/15/23 08/12/24 Greg Castaneda DO [address] [place] [address] PCP - General Internal Medicine 08/13/24 09/18/24 Meagan Bowers MD [address] [place] [address] PCP - General Family Medicine 09/19/24 Laurie Estrada DO [address] [place] [address] Insurance Assigned Provider 10/05/17 02/07/19 documented as of this encounter Additional Source Comments The information contained in this document represents components of the legal health record. It is not the complete legal health record.[facility]
--- OUTSIDE RECORDS SUMMARY | 2025-04-21 16:36 | XMS_ITS | Encounter Summary ---
Author Organization [facility] Address [address] [place] [address] Phone Care Team Providers Care Vision Rehabilitation Therapist Name Role Phone Laurie Estrada DO Primary Care Provider [phone] Laurie Estrada DO Unavailable [phone] Jacquelin Long MD Primary Care Provider + Greg Castaneda DO Primary Care Provider Meagan Bowers MD Primary Care Provider Encounter Details Date Type Department Care Team (Latest Contact Info) Description 01/20/2019 Transcribe Orders Virtual Department [address] [place] [address] Laurie Estrada DO [address] [place] [address] [email or web address] Intra-abdominal and pelvic swelling, mass and [...] documented as of this encounter Care Teams Vision Rehabilitation Therapist Relationship Specialty Start Date End Date Laurie Estrada DO [address] [place] [address] PCP - General Internal Medicine 12/24/16 10/14/23 Jacquelin Long MD [address] [place] [address] [email or web address] PCP - General Family Medicine 10/15/23 08/12/24 Greg Castaneda DO [address] [place] [address] PCP - General Internal Medicine 08/13/24 09/18/24 Meagan Bowers MD [address] [place] [address] [email or web address] PCP - General Family Medicine 09/19/24 Laurie Estrada DO [address] [place] [address] Insurance Assigned Provider 10/05/17 02/07/19 documented as of this encounter Additional Source Comments The information contained in this document represents components of the legal health record. It is not the complete legal health record.[facility]
--- OUTSIDE RECORDS SUMMARY | 2025-04-21 16:36 | XMS_ITS | Encounter Summary ---
Author Organization [facility] Address [address] [facility] [address] [place] [address] Phone Care Team Providers Care Printed Circuit Boards Inspector Name Role Phone Jacquelin Long MD Primary Care Provider + Greg Castaneda DO Primary Care Provider [phone] Meagan Bowers MD Primary Care Provider [phone] Encounter Details Date Type Department Care Team (Latest Contact Info) Description 07/31/2024 Transcribe Orders [facility] Phleb Lisbeth [address] [place] [address] [phone] Flor Fuller CNP [address] [place] [address] [phone] [email or web address] Fatty liver (Primary Dx); Nonspecific abnormal results [...] (POPEth) by LC-MS/MS <10 Cutoff: 10 ng/mL [facility] Comment: (NOTE) Phosphatidylethanol [...] (PLPEth) by LC-MS/MS <10 Cutoff: 10 ng/mL [facility] Comment: (NOTE) PEth 16:0/18:2 (PLPEth) Reference ranges are not well established PEth Interpretation Negative. [facility] Comment: (NOTE) ADDITIONAL INFORMATION This report is intended for use in clinical monitoring and management of patients. It is not intended for use in employment-related testing. This test was developed and its performance characteristics determined by [facility] in a manner consistent with CLIA requirements. This test has not been cleared or approved by the U.S. Food and Drug Administration. Blood 07/31/2024 10:2 5 AM EST 07/31/2024 10:34 AM EST Flor Fuller [facility] LAB BLOOD BKR ORDERABLES F inal Result Performing Organization Address City/[facility]/ZIP Co de Phone Number [facility] MED/[address] [place] [address] * (ABNORMAL) Vitamin B12 (07/31/2024 10:25 AM EST) VITAMIN B12 1,563(H) 232 - 1,245 pg/mL [facility] Blood 07/31/2024 10:2 5 AM EST 07/31/2024 10:33 AM EST Flor Fuller [facility] LAB BLOOD BKR ORDERABLES F inal Result [facility] [address] [place] [address] * PT-INR (07/31/2024 10:25 AM EST) Pathologist [facility] PT 10.4 10.2 - 12.9 sec [facility] INR 0.9 0.9 - 1.1 [facility] Comment:Therapeutic range fo r oral Vitamin K antagonists: 2.0-3.5 Blood 07/31/2024 10:2 5 AM EST 07/31/2024 10:33 AM EST Flor Fuller [facility] LAB BLOOD BKR ORDERABLES F inal Result [address] [address] * (ABNORMAL) Ferritin (07/31/2024 10:25 AM EST) [facility] FERRITIN 403(H) 13 - 150 ug/L [facility] Blood 07/31/2024 10:2 5 AM EST 07/31/2024 10:33 AM EST Flor Ana Maria [facility] LAB BLOOD BKR ORDERABLES F inal Result Performing Organization Address [facility]/ZIP Co de Phone Number [address] [address] * (ABNORMAL) Folate (07/31/2024 10:25 AM EST) [facility] FOLIC ACID >20.0(H) 4.2 - 19.9 ng/mL [facility] Blood 07/31/2024 10:2 5 AM EST 07/31/2024 10:33 AM EST Flor Ana Maria [facility] LAB BLOOD BKR ORDERABLES F inal Result Performing Organization Address City/[facility]/ZIP Co de Phone Number [address] [address] * (ABNORMAL) Iron and iron binding capacity (07/31/2024 10:25 AM EST) Pathologist [facility] IRON 155 30 - 160 ug/dL [facility] IRON BINDING CAPACITY 241 228 - 428 ug/dL [facility] TRANSFERRIN SATURAT. 64(H) 15 - 50 % [facility] Blood 07/31/2024 10:2 5 AM EST 07/31/2024 10:33 AM EST Flor Fuller [facility] LAB BLOOD BKR ORDERABLES F inal Result Performing Organization Address City/[facility]/ZIP Co de Phone Number [address] [address] * LFTs (hepatic panel) (07/31/2024 10:25 AM EST) ALKALINE PHOSPHATASE 96 39 - 117 U/L [facility] TOTAL BILIRUBIN 0.6 0.0 - 1.2 mg/dL [facility] DIRECT BILIRUBIN 0.2 0.0 - 0.2 mg/dL [facility] Bilirubin (Indirect) 0.4 0 - 1.5 mg/dL [facility] AST 36 0 - 37 U/L [facility] ALT 33 0 - 40 U/L [facility] TOTAL PROTEIN 7.7 6.5 - 8.0 g/dL [facility] ALBUMIN 4.0 3.9 - 4.8 g/dL [facility] GLOBULIN 3.7 1 - 4.8 g/dL [facility] A/G Ratio 1.08 1.00 - 4.80 RATIO [facility] Blood 07/31/2024 10:2 5 AM EST 07/31/2024 10:33 AM EST Flor Fuller [facility] LAB BLOOD BKR ORDERABLES F inal Result Performing Organization Address City/[facility]/ZIP Co de Phone Number [address] [address] * (ABNORMAL) Liver fibrosis test (07/31/2024 10:25 AM EST) Fibrosis score 0.43 [facility] Interpretation (Fibrosis) SEE NOTE [facility] Comment: (NOTE) minimal fibrosis Fibro Test [...] Fibrosis Grade SEE NOTE Q [facility] Comment: (NOTE) Result: F1-F2 NECROINFLAMM SCORE 0.20 Q [facility] NECROINFLAMM GRADE SEE NOTE Q [facility] Comment: (NOTE) Result: A0-A1 NECROINFLAMM INTERP SEE NOTE [facility] Comment: (NOTE) no activity ActiTest Score [...] A2 Macroglobulin 285(H) 106 - 279 mg/dL [facility] Haptoglobin 123 43 - 212 mg/dL [facility] Apolipoprotein A1 140 101 - 198 mg/dL [facility] TOTAL BILIRUBIN 0.5 0.2 - 1.2 mg/dL [facility] GGT 24 3 - 65 U/L [facility] ALT 33(H) 6 - 29 U/L [facility] Specimen/Product ID [id number] [facility] Comments (Chemistry) SEE NOTE [facility] Comment: (NOTE) The reliability of results is dependent on compliance with the preanalytical and analytical conditions recommended by [employer]. The tests have to be deferred for: [...] The performance characteristics have been determined by [facility]. It has not been cleared or approved by the U.S. Food and Drug Administration. Performance characteristics refer to the analytical performance of the test. [employer], the associated logo, [employer] and all associated [employer] reyes are the registered trademarks of [employer]. All third alliance party reyes - (R) and (TM) - are the property of their respective owners. (C) [id number] [employer]. All rights reserved. Blood 07/31/2024 10:2 5 AM EST 07/31/2024 10:34 AM EST Flor Fuller [facility] LAB BLOOD BKR ORDERABLES F inal Result [facility] [facility] [facility] [address] [place] [address], [facility] [phone] * (ABNORMAL) CBC and differential (07/31/2024 10:25 AM EST) WBC 5.34 4.00 - 11.00 K/uL [facility] RBC 4.67 4.00 - 5.20 M/uL [facility] HGB 14.6 12.0 - 16.0 g/dL [facility] HCT 41.8 36.0 - 46.0 % [facility] PLT 211 150 - 450 K/uL [facility] MCV 89.5 80.0 - 100.0 fL [facility] MCH 31.3(H) 27.0 - 31.0 pg [facility] MCHC 34.9 32.0 - 36.0 g/dL [facility] RDW 12.8 11.5 - 14.5 % [facility] MPV 10.1 8.4 - 12.0 fL [facility] NRBC 0.00 0.00 /100 WBCs [facility] ABSOLUTE NRBC 0.00 0.00 K/uL [facility] DIFF METHOD Auto [facility] NEUTS 68.4 48.0 - 76.0 % [facility] LYMPHS 24.9 18.0 - 41.0 % [facility] MONOS 5.4 4.0 - 11.0 % [facility] EOS 0.4 0.0 - 5.0 % [facility] BASOS 0.7 0.0 - 1.5 % [facility] Granulocytes, immature (%) 0.2 0.0 - 0.9 % [facility] ABSOLUTE NEUTS 3.65 1.92 - 7.60 K/uL [facility] ABSOLUTE LYMPHS 1.33 0.72 - 4.10 K/uL [facility] ABSOLUTE MONOS 0.29 0.16 - 1.10 K/uL [facility] ABSOLUTE EOS 0.02 0.00 - 0.50 K/uL [facility] ABSOLUTE BASOS 0.04 0.00 - 0.15 K/uL [facility] Granulocytes, immature 0.01 0.00 - 0.09 K/uL [facility] Blood 07/31/2024 10:2 5 AM EST 07/31/2024 10:33 AM EST us Flor Fuller BROILER MANAGER LAB BLOOD BKR ORDERABLES F inal Result [facility] [address] [place] [address] documented in this encounter Visit Diagnoses Diagnosis Fatty liver- Primary Other chronic nonalcoholic liver disease Nonspecific abnormal results of liver function study Iron deficiency anemia secondary to blood loss (chronic) documented in this encounter Care Teams Printed Circuit Boards Inspector Relationship Specialty Start Date End Date Jacquelin Long MD [email or web address] PCP - General Family Medicine 10/15/23 08/12/24 Greg Castaneda DO [address] [place] [address] PCP - General Internal Medicine 08/13/24 09/18/24 Meagan Bowers MD [address] [place] [address] [email or web address] PCP - General Family Medicine 09/19/24 documented as of this encounter Additional Source Comments The information contained in this document represents components of the legal health record. It is not the complete legal health record.[facility]
--- OUTSIDE RECORDS SUMMARY | 2025-04-21 16:36 | XMS_ITS | Encounter Summary ---
Author Organization [facility] Address [address] [place] [address] Phone Care Team Providers Care Automatic Fabric Cutter Name Role Phone Laurie Estrada DO Primary Care Provider Jacquelin Long MD Primary Care Provider + Greg Castaneda DO Primary Care Provider Meagan Bowers MD Primary Care Provider Encounter Details Date Type Department Care Team (Late st Contact Info) Description 11/24/2021 Procedure Pass [facility] Endoscopy Admitting Dept Virtual Department [address] [place], [place] [phone] Social History Tobacco Use Types Packs/Day Years [...] documented as of this encounter Care Teams Automatic Fabric Cutter Relationship Specialty Start Date End Date Laurie Estrada DO [address] [place] [address] PCP - General Internal Medicine 12/24/16 10/14/23 Jacquelin Long MD [address] [place] [address] [email or web address] PCP - General Family Medicine 10/15/23 08/12/24 Greg Castaneda DO [address] [place] [address] PCP - General Internal Medicine 08/13/24 09/18/24 Meagan Bowers MD [address] [place] [address] [email or web address] PCP - General Family Medicine 09/19/24 documented as of this encounter Additional Source Comments The information contained in this document represents components of the legal health record. It is not the complete legal health record.[facility]
--- OUTSIDE RECORDS SUMMARY | 2025-04-21 16:36 | XMS_ITS | Encounter Summary ---
Author Organization [facility] Address [address] [facility] [address] [place] [address] Phone Care Team Providers Care R And D Lab Technician Name Role Phone Natalie Laurie Heart DO Primary Care Provider Jacquelin Long MD Primary Care Provider + Greg Castaneda DO Primary Care Provider [phone] Meagan Bowers MD Primary Care Provider Encounter Details Date Type Department Care Team (Late st Contact Info) Description 12/02/2019 Transcribe Orders [facility] Specimen Processing [address] [place] [address] Juana Wells MD [address], [place] [phone] Social History Tobacco Use Types Packs/Day Years [...] documented as of this encounter Care Teams R And D Lab Technician Relationship Specialty Start Date End Date Laurie Estrada DO [address] [place] [address] PCP - General Internal Medicine 12/24/16 10/14/23 Jacquelin Long MD [address] [place] [address] [email or web address] PCP - General Family Medicine 10/15/23 08/12/24 Greg Castaneda DO [address] [place] [address] PCP - General Internal Medicine 08/13/24 09/18/24 Meagan Bowers MD [address] [place] [phone] [email or web address] PCP - General Family Medicine 09/19/24 documented as of this encounter Additional Source Comments The information contained in this document represents components of the legal health record. It is not the complete legal health record.[facility]
--- OUTSIDE RECORDS SUMMARY | 2025-04-21 16:37 | XMS_ITS | Encounter Summary ---
Author Organization [facility] Address [address] [place] [address] [place] [address] Phone Care Team Providers Care Video Systems Engineer Name Role Phone Jacquelin Long MD Primary Care Provider + Greg Castaneda DO Primary Care Provider [phone] Meagan Bowers MD Primary Care Provider [phone] Encounter Details Date Type Department Care Team (Late st Contact Info) Description 10/15/2023 Ophth Exam DEDE Consult from [address] [address] Yared Epstein MD [address] [place] [address] [email or web address] Social History Tobacco Use Types Packs/Day Years [...] 3:23 AM EDT Gustavo Sabillon, JADE * [place] Suicide Severity Rating Scale (Screener/Recent Self-Report) Question [...] documented as of this encounter Care Teams Video Systems Engineer Relationship Specialty Start Date End Date Jacquelin Long MD [email or web address] PCP - General Family Medicine 10/15/23 08/12/24 Greg Castaneda DO [address] [place] [address] PCP - General Internal Medicine 08/13/24 09/18/24 Meagan Bowers MD [address] [place] [address] [email or web address] PCP - General Family Medicine 09/19/24 documented as of this encounter Additional Source Comments The information contained in this document represents components of the legal health record. It is not the complete legal health record.[facility]
--- OUTSIDE RECORDS SUMMARY | 2025-04-21 16:37 | XMS_ITS | Encounter Summary ---
Author Organization [facility] Address [address] [facility] [address] [place] [address] Phone Care Team Providers Care Wool Hanker Name Role Phone Meagan Bowers MD Primary Care Provider Encounter Details Date Type Department Care Team (Latest Contact Info) Description 12/24/2024 Transcribe Orders Virtual Department [address] [place] [address] Meagan Bowers MD [address] [place], [place] [phone] [email or web address] Asymptomatic menopausal state (Primary Dx) Social [...] Primary documented in this encounter Care Teams Wool Hanker Relationship Specialty Start Date End Date Meagan Bowers MD [address] [place], [place] [phone] (work) [email or web address] PCP - General Family Medicine 09/19/24 documented as of this encounter Additional Source Comments The information contained in this document represents components of the legal health record. It is not the complete legal health record.[facility]
--- OUTSIDE RECORDS SUMMARY | 2025-04-21 16:37 | XMS_ITS | Encounter Summary ---
Author Organization [facility] Address [address] [place] [address] Phone Care Team Providers Care Cloud Engineer Name Role Phone Laurie Estrada DO Primary Care Provider [phone] Laurie Estrada DO Unavailable [phone] Jacquelin Long MD Primary Care Provider + Greg Castaneda DO Primary Care Provider Meagan Bowers MD Primary Care Provider Encounter Details Date Type Department Care Team (Late st Contact Info) Description 01/30/2019 Procedure Pass [facility] Endoscopy Department [address] [place] [address] Social History Tobacco Use Types Packs/Day Years [...] documented as of this encounter Care Teams Cloud Engineer Relationship Specialty Start Date End Date Laurie Estrada DO [address] [place] [address] PCP - General Internal Medicine 12/24/16 10/14/23 Jacquelin Long MD [address] [place] [address] [email or web address] PCP - General Family Medicine 10/15/23 08/12/24 Greg Castaneda DO [address] [place] [address] PCP - General Internal Medicine 08/13/24 09/18/24 Meagan Bowers MD [address] [place] [address] [email or web address] PCP - General Family Medicine 09/19/24 Laurie Estrada DO [address] [place] [address] Insurance Assigned Provider 10/05/17 02/07/19 documented as of this encounter Additional Source Comments The information contained in this document represents components of the legal health record. It is not the complete legal health record.[facility]
--- OUTSIDE RECORDS SUMMARY | 2025-04-21 16:37 | XMS_ITS | Encounter Summary ---
Author Organization [facility] Address [address] [place] [address] Phone Care Team Providers Care Loan Operations Specialist Name Role Phone Laurie Estrada DO Primary Care Provider [phone] Laurie Estrada DO Unavailable [phone] Jacquelin Long MD Primary Care Provider + Greg Castaneda DO Primary Care Provider Meagan Bowers MD Primary Care Provider Encounter Details Date Type Department Care Team (Late st Contact Info) Description 01/28/2019 Procedure Pass [facility] Endoscopy Department [address] [place] [address] Social History Tobacco Use Types Packs/Day Years [...] documented as of this encounter Care Teams Loan Operations Specialist Relationship Specialty Start Date End Date Laurie Estrada DO [address] [place] [address] PCP - General Internal Medicine 12/24/16 10/14/23 Jacquelin Long MD [address] [place] [address] [email or web address] PCP - General Family Medicine 10/15/23 08/12/24 Greg Castaneda DO [address] [place] [address] PCP - General Internal Medicine 08/13/24 09/18/24 Meagan Bowers MD [address] [place] [address] [email or web address] PCP - General Family Medicine 09/19/24 Laurie Estrada DO [address] [place] [address] Insurance Assigned Provider 10/05/17 02/07/19 documented as of this encounter Additional Source Comments The information contained in this document represents components of the legal health record. It is not the complete legal health record.[facility]
--- OUTSIDE RECORDS SUMMARY | 2025-04-21 16:37 | XMS_ITS | Encounter Summary ---
Author Organization [facility] Address [address] [place] [address] Phone Care Team Providers Care Wort Extractor Name Role Phone Laurie Estrada DO Primary Care Provider [phone] Laurie Estrada DO Unavailable [phone] Jacquelin Long MD Primary Care Provider + Greg Castaneda DO Primary Care Provider [phone] Meagan Bowers MD Primary Care Provider Encounter Details Date Type Department Care Team (Late st Contact Info) Description 01/22/2019 Procedure Pass [facility] Endoscopy Admitting Dept Virtual Department [address] [place], [place] [phone] Social History Tobacco Use Types Packs/Day Years [...] documented as of this encounter Care Teams Wort Extractor Relationship Specialty Start Date End Date Laurie Estrada DO [address] [place] [address] PCP - General Internal Medicine 12/24/16 10/14/23 Jacquelin Long MD [address] [place] [address] [email or web address] PCP - General Family Medicine 10/15/23 08/12/24 Greg Castaneda DO [address] [place] [address] PCP - General Internal Medicine 08/13/24 09/18/24 Meagan Bowers MD [address] [place] [address] [email or web address] PCP - General Family Medicine 09/19/24 Laurie Estrada DO [address] [place] [address] Insurance Assigned Provider 10/05/17 02/07/19 documented as of this encounter Additional Source Comments The information contained in this document represents components of the legal health record. It is not the complete legal health record.[facility]
--- OUTSIDE RECORDS SUMMARY | 2025-04-21 16:37 | XMS_ITS | Encounter Summary ---
Author Organization [facility] Address [address] [facility] [address] [place] [address] Phone Care Team Providers Care Emissions Testing Technician Name Role Phone Jacquelin Long MD Primary Care Provider + Greg Castaneda DO Primary Care Provider Meagan Bowers MD Primary Care Provider Encounter Details Date Type Department Care Team (Latest Contact Info) Description 05/08/2024 Transcribe Orders [facility] Phleb Lisbeth [address] [place] [address] [phone] Flor Fuller CNP [address] [place] [address] [phone] [email or web address] Fatty liver (Primary Dx); Iron deficiency anemia [...] (POPEth) by LC-MS/MS 61 Cutoff: 10 ng/mL [facility] Comment: (NOTE) Phosphatidylethanol [...] (PLPEth) by LC-MS/MS 14 Cutoff: 10 ng/mL [facility] Comment: (NOTE) PEth 16:0/18:2 (PLPEth) Reference ranges are not well established PEth Interpretation Positive. [facility] Comment: (NOTE) ADDITIONAL INFORMATION This report is intended for use in clinical monitoring and management of patients. It is not intended for use in employment-related testing. This test was developed and its performance characteristics determined by [facility] in a manner consistent with CLIA requirements. This test has not been cleared or approved by the U.S. Food and Drug Administration. Blood 05/08/2024 10:2 8 AM EST 05/08/2024 10:38 AM EST Flor Fuller [facility] LAB BLOOD BKR ORDERABLES F inal Result Performing Organization Address City/[facility] Co de Phone Number [facility] MED/[facility] [address] [address] [place] [address] * Vitamin B12 (05/08/2024 10:28 AM EST) VITAMIN B12 914 232 - 1,245 pg/mL [facility] Blood 05/08/2024 10:2 8 AM EST 05/08/2024 10:37 AM EST Flor Fuller [facility] LAB BLOOD BKR ORDERABLES F inal Result Performing Organization Address City/[facility]/ZIP Co de Phone Number [facility] [address] [place] [address] * PT-INR (05/08/2024 10:28 AM EST) PT 11.0 10.2 - 12.9 sec [facility] INR 1.0 0.9 - 1.1 [facility] Comment:Therapeutic range fo r oral Vitamin K antagonists: 2.0-3.5 Blood 05/08/2024 10:2 8 AM EST 05/08/2024 10:37 AM EST Flor Fuller [facility] LAB BLOOD BKR ORDERABLES F inal Result Performing Organization Address City/[facility]/ZIP Co de Phone Number [address] [address] * (ABNORMAL) Ferritin (05/08/2024 10:28 AM EST) FERRITIN 275(H) 13 - 150 ug/L [facility] Blood 05/08/2024 10:2 8 AM EST 05/08/2024 10:37 AM EST Flor Fuller [facility] LAB BLOOD BKR ORDERABLES F inal Result Performing Organization Address [facility] Co de Phone Number [address] [address] * Folate (05/08/2024 10:28 AM EST) FOLIC ACID 8.6 4.2 - 19.9 ng/mL [facility] Blood 05/08/2024 10:2 8 AM EST 05/08/2024 10:37 AM EST Flor Fuller [facility] LAB BLOOD BKR ORDERABLES F inal Result Performing Organization Address [facility] Co de Phone Number [address] [address] * Iron and iron binding capacity (05/08/2024 10:28 AM EST) IRON 121 30 - 160 ug/dL [facility] IRON BINDING CAPACITY 285 228 - 428 ug/dL [facility] TRANSFERRIN SATURAT. 42 15 - 50 % [facility] Blood 05/08/2024 10:2 8 AM EST 05/08/2024 10:37 AM EST Flor Fuller [facility] LAB BLOOD BKR ORDERABLES F inal Result Performing Organization Address [facility] Co de Phone Number [address] [address] * LFTs (hepatic panel) (05/08/2024 10:28 AM EST) ALKALINE PHOSPHATASE 65 39 - 117 U/L [facility] TOTAL BILIRUBIN 0.7 0.0 - 1.2 mg/dL [facility] DIRECT BILIRUBIN <0.2 0 - 0.3 mg/dL [facility] Bilirubin (Indirect) NOT CALCULATED 0 - 1.5 mg/dL [facility] AST 33 0 - 37 U/L [facility] ALT 22 0 - 40 U/L [facility] TOTAL PROTEIN 7.5 6.5 - 8.0 g/dL [facility] ALBUMIN 4.3 3.9 - 4.8 g/dL [facility] GLOBULIN 3.2 1 - 4.8 g/dL [facility] A/G Ratio 1.34 1.00 - 4.80 RATIO [facility] Blood 05/08/2024 10:2 8 AM EST 05/08/2024 10:37 AM EST Flor Fuller [facility] LAB BLOOD BKR ORDERABLES F inal Result Performing Organization Address [facility] Co de Phone Number [address] [address] * (ABNORMAL) CBC and differential (05/08/2024 10:28 AM EST) WBC 3.68(L) 4.00 - 11.00 K/uL [facility] RBC 4.45 4.00 - 5.20 M/uL [facility] HGB 15.1 12.0 - 16.0 g/dL [facility] HCT 43.7 36.0 - 46.0 % [facility] PLT 170 150 - 450 K/uL [facility] MCV 98.2 80.0 - 100.0 fL [facility] MCH 33.9(H) 27.0 - 31.0 pg [facility] MCHC 34.6 32.0 - 36.0 g/dL [facility] RDW 12.1 11.5 - 14.5 % [facility] MPV 10.1 8.4 - 12.0 fL [facility] NRBC 0.00 0.00 /100 WBCs [facility] ABSOLUTE NRBC 0.00 0.00 K/uL [facility] DIFF METHOD Auto [facility] NEUTS 66.3 48.0 - 76.0 % [facility] LYMPHS 23.4 18.0 - 41.0 % [facility] MONOS 7.6 4.0 - 11.0 % [facility] EOS 2.2 0.0 - 5.0 % [facility] BASOS 0.5 0.0 - 1.5 % [facility] Granulocytes, immature (%) 0.0 0.0 - 0.9 % [facility] ABSOLUTE NEUTS 2.44 1.92 - 7.60 K/uL [facility] ABSOLUTE LYMPHS 0.86 0.72 - 4.10 K/uL [facility] ABSOLUTE MONOS 0.28 0.16 - 1.10 K/uL [facility] ABSOLUTE EOS 0.08 0.00 - 0.50 K/uL [facility] ABSOLUTE BASOS 0.02 0.00 - 0.15 K/uL [facility] Granulocytes, immature 0.00 0.00 - 0.09 K/uL [facility] Blood 05/08/2024 10:2 8 AM EST 05/08/2024 10:37 AM EST us Flor Fuller CNP LAB BLOOD BKR ORDERABLES F inal Result [facility] [address] [place] [address] * Liver fibrosis test (05/08/2024 10:28 AM EST) Fibrosis score 0.40 [facility] Interpretation (Fibrosis) SEE NOTE [facility] Comment: (NOTE) minimal fibrosis Fibro [...] fibrosis) HCV Fibrosis Grade SEE NOTE [facility] Comment: (NOTE) Result: F1-F2 NECROINFLAMM SCORE 0.11 [facility] NECROINFLAMM GRADE A0 [facility] NECROINFLAMM INTERP SEE NOTE [facility] Comment: (NOTE) no activity [employer] [...] A2 Macroglobulin 230 106 - 279 mg/dL [facility] Haptoglobin 127 43 - 212 mg/dL [facility] Apolipoprotein A1 155 101 - 198 mg/dL [facility] TOTAL BILIRUBIN 0.7 0.2 - 1.2 mg/dL [facility] GGT 41 3 - 65 U/L [facility] ALT 23 6 - 29 U/L [facility] Specimen/Product ID [id number] [employer] [facility] Comments (Chemistry) SEE NOTE [employer] [facility] Comment: (NOTE) The reliability of results is dependent on compliance with the preanalytical and analytical conditions recommended by [employer]. The tests have to be deferred for: [...] The performance characteristics have been determined by [facility]. It has not been cleared or approved by the U.S. Food and Drug Administration. Performance characteristics refer to the analytical performance of the test. [employer], the associated logo, [employer] and all associated [employer] reyes are the registered trademarks of [employer]. All third democrat reyes - (R) and (TM) - are the property of their respective owners. (C) [id number] [employer]. All rights reserved. Blood 05/08/2024 10:2 8 AM EST 05/08/2024 10:37 AM EST us Flor Fuller CNP LAB BLOOD BKR ORDERABLES F inal Result [employer] [facility] [address] [place] [address], [facility] [phone] documented in this encounter Visit Diagnoses Diagnosis Fatty liver- Primary Other chronic nonalcoholic liver disease Iron deficiency anemia secondary to blood loss (chronic) Nonspecific abnormal results of liver function study documented in this encounter Care Teams Emissions Testing Technician Relationship Specialty Start Date End Date Jacquelin Long MD [email or web address] PCP - General Family Medicine 10/15/23 08/12/24 Greg Castaneda DO [address] [place] [address] PCP - General Internal Medicine 08/13/24 09/18/24 Meagan Bowers MD [address] [place] [address] [email or web address] PCP - General Family Medicine 09/19/24 documented as of this encounter Additional Source Comments The information contained in this document represents components of the legal health record. It is not the complete legal health record.[facility]
--- OUTSIDE RECORDS SUMMARY | 2025-04-21 16:37 | XMS_ITS | Clinical Summary ---
Author Organization [facility] Address [address] [place] [address] Care Team Providers Care Special Needs Teacher Name Role Phone Unavailable Primary Care Provider [...] - 2023-2 5 season) 2025 RSV Vaccine 50 years and old er and Patients (1 - 1-dose 75+ series) 2028 Hepatitis B Vaccines Aged Out No long er eligible based on patient's age to complete this topic
--- OUTSIDE RECORDS SUMMARY | 2025-04-21 16:37 | XMS_ITS | Encounter Summary ---
Author Organization [facility] Address [address] [place] [phone] Phone Care Team Providers Care Athletic Instructor Name Role Phone Jacquelin Long MD Primary Care Provider + Greg Castaneda DO Primary Care Provider [phone] Meagan Bowers MD Primary Care Provider Encounter Details Date Type Department Care Team (Latest Contact Info) Description 03/25/2024 Transcribe Orders [facility] Phleb Lisbeth [address] [place] [address] [phone] Flor Fuller CNP [address] [place] [address] [phone] [email or web address] Fatty liver (Primary Dx) Social History Tobacco [...] EDT) WBC 2.86(L) 4.00 - 11.00 K/uL [facility] RBC 4.41 4.00 - 5.20 M/uL [facility] HGB 15.0 12.0 - 16.0 g/dL [facility] HCT 45.4 36.0 - 46.0 % [facility] PLT 103(L) 150 - 450 K/uL [facility] Comment:Microscopic estimate : Platelets slightly decreased. MCV 102.9(H) 80.0 - 100.0 fL [facility] MCH 34.0(H) 27.0 - 31.0 [facility] 33.[facility] 32.0 - 36.0 g/dL [facility] RDW 14.6(H) 11.5 - 14.5 % [facility] MPV 10.5 8.4 - 12.0 fl [facility] NRBC 0.00 0.00 /100 WBCs [facility] ABSOLUTE NRBC 0.00 0.00 K/uL [facility] DIFF METHOD Auto [facility] NEUTS 52.1 48.0 - 76.0 % [facility] LYMPHS 37.1 18.0 - 41.0 % [facility] MONOS 8.4 4.0 - 11.0 % [facility] EOS 1.4 0.0 - 5.0 % [facility] BASOS 0.7 0.0 - 1.5 % [facility] Granulocytes, immature (%) 0.3 0.0 - 0.9 % [facility] ABSOLUTE NEUTS 1.49(L) 1.92 - 7.60 K/uL [facility] ABSOLUTE LYMPHS 1.06 0.72 - 4.10 K/uL [facility] ABSOLUTE MONOS 0.24 0.16 - 1.10 K/uL [facility] ABSOLUTE EOS 0.04 0.00 - 0.50 K/uL [facility] ABSOLUTE BASOS 0.02 0.00 - 0.15 K/uL [facility] Granulocytes, immature 0.01 0.00 - 0.09 K/uL [facility] Blood 03/25/2024 9:29 AM EDT 03/25/2024 9:34 AM EDT us Flor Fuller [facility] BLOOD BKR ORDERABLES F inal Result [facility] [address] [place] [address] * (ABNORMAL) LFTs (hepatic panel) (03/25/2024 9:29 AM EDT) ALKALINE PHOSPHATASE 100 39 - 117 U/L [facility] TOTAL BILIRUBIN 0.5 0.0 - 1.2 mg/dL [facility] DIRECT BILIRUBIN <0.2 0 - 0.3 mg/dL [facility] Bilirubin (Indirect) NOT CALCULATED 0 - 1.5 mg/dL [facility] AST 52(H) 0 - 37 U/L [facility] ALT 24 0 - 40 U/L [facility] TOTAL PROTEIN 7.3 6.5 - 8.0 g/dL [facility] ALBUMIN 3.7(L) 3.9 - 4.8 g/dL [facility] GLOBULIN 3.6 1 - 4.8 g/dL [facility] A/G Ratio 1.03 1.00 - 4.80 RATIO [facility] Blood 03/25/2024 9:29 AM EDT 03/25/2024 9:34 AM EDT Flor Fuller [facility] BLOOD BKR ORDERABLES F inal Result Performing Organization Address [facility]/ZIP Co de Phone Number [address] [address] * (ABNORMAL) Immunoglobulin A (03/25/2024 9:29 AM EDT) IgA 502(H) 70 - 400 mg/dL [facility] Blood 03/25/2024 9:29 AM EDT 03/25/2024 9:34 AM EDT Flor Fuller [facility] BLOOD BKR ORDERABLES F inal Result Performing Organization Address City/[facility]/ZIP Co de Phone Number [address] [address] * Tissue transglutaminase IgA (03/25/2024 9:29 AM EDT) TTG IGA ANTIBODY 1.3 <4.0 (Negative) U/mL [facility] Blood 03/25/2024 9:29 AM EDT 03/25/2024 9:34 AM EDT Flor Fuller [facility] BLOOD BKR ORDERABLES F inal Result [facility] [address] [place] [address] * (ABNORMAL) GGT (Gamma glutamyl transferase) (03/25/2024 9:29 AM EDT) GGT 89(H) 7 - 33 U/L [facility] Blood 03/25/2024 9:29 AM EDT 03/25/2024 9:34 AM EDT us Flor Fuller [facility] BLOOD BKR ORDERABLES F inal Result [facility] [address] [place] [address] documented in this encounter Visit Diagnoses Diagnosis Fatty liver- Primary Other chronic nonalcoholic liver disease documented in this encounter Care Teams Athletic Instructor Relationship Specialty Start Date End Date Jacquelin Long MD [email or web address] PCP - General Family Medicine 10/15/23 08/12/24 Greg Castaneda DO [address] [place] [address] PCP - General Internal Medicine 08/13/24 09/18/24 Meagan Bowers MD [address] [place] [address] PCP - General Family Medicine 09/19/24 documented as of this encounter Additional Source Comments The information contained in this document represents components of the legal health record. It is not the complete legal health record.[facility]
--- OUTSIDE RECORDS SUMMARY | 2025-04-21 16:37 | XMS_ITS | Continuity of Care Document ---
Author Organization [facility] - [facility], JAYY Bustamante 2nd floor Address [address] [place] [address] Care Team Providers Care Laboratory Cureman Name Role Phone IRINEO AGOSTO Primary Care Provider Assessment Encounter Date Assessment Date Assessment LastModified by Organization Details LastModified Time 04/16/2025 04/16/2025 History: Patient is a 69-year-old female presents to me for evaluation of left-sided knee pain. She has had knee pain for over 10 years. Cortisone provided no relief. She wears an cigarette vendor brace which is very helpful. Takes Celebrex [...] and lucid. Normal insight, affect and grooming. DEVELOPMENT ENGINEER: Gross motor coordination is intact. No spasticity [...] osteoarthrits of the left knee. There is oypb-fl-hlya articulation, subchondral sclerosis, and osteophyte formation. Assessment: [...] questions or concerns that they might have. [email or web address] Not available 04/16/2025 09:38:24 Plan of Treatment Reminders Order Date Submit Date Provider Last Modified By Organization Details Last Modified Time Details Appointments SURGERY @ [facility] 2025 11:30A Chi Robin MD Not available Not available Not available POST OP 15 2025 11:00A M Joseline Miller CNP Not available Not available Not available RECHECK 10 2025 01:30P Chi Robin MD Not available Not available Not available Lab None recorded . Referral None recorded . Procedures None recorded . Surgeries None recorded . Imaging None recorded . Medication Orders None recorded . Patient TargetsNo targets recorded. Patient InstructionsNo instructions recorded. Reason for Referral None Reported. Medical Equipment None Reported. Allergies Allergen ID Allergen Name Allergen Category Reaction Reaction Severity Criticality Documentation Date Start Date Code Code System Note Provider Name and Address Organization Details Recorded Time 369697 codeine medicatio n Not available Not available high 04/16/20252011 2670 RxNorm unrec ogniz ed react ion (text : GI Upset , code: 43483 005) (from exter nal sourc e) Not Available [employer] - prod 5 04:06:28 362356 meclizine medicatio n other Not available high 04/16/20252011 6676 RxNorm Dizzi ness, rash Not Available [employer] - prod 5 04:06:28 096761 medroxypr ogesteron e medicatio n anaphylax is Not available high 04/16/20252011 6691 RxNorm Not Available [employer] - prod 5 04:06:28 424614 nystatin medicatio n Not available Not available Not available 04/16/20252023 7597 RxNorm Not Available [employer] Service - prod 5 04:06:28 678670 apremilas t medicatio n diarrhea Not available high 04/16/20252021 23185 27 RxNorm Sever e depre ssion Not Available [employer] - prod 5 04:06:28 690751 simvastat in medicatio n rash Not available low 04/16/20252018 87878 RxNorm Not Available [employer] - prod 5 04:06:28 690835 Product containin g 3-hydroxy -3-methyl glutaryl- coenzyme A reductase inhibitor (product) medicatio n myalgias (muscle pain) Not available high 04/16/20252024 14619 009 SNOMED Not Available glo - External Data Service - prod 5 04:06:28 Medications [...] Updated DateTime 04/16/2025 153.67 cm 24.2 kg/m2 69514.64 g TOY SEVERINO [place] - [facility] 04/16/2025 09:01:42 Social History None recorded. Functional Status None recorded. Mental Status None recorded. Family History Nothing Reported. Medical History No medical history recorded. Gynecological HistoryNo gynecological history recorded. Obstetrics History GPAL:G 0 P 0 0 0 0 Past Encounters Encounter ID Performer Location Encounter Start Date Encounter Closed Date Diagnosis/Indication Diagnosis SNOMED-CT Code Diagnosis ICD10 Code Diagnosis IMO Codes Diagnosis Note [id number] MD JAYY Killian 2nd floor [address] [place] [address] 04/16/2025 08:39:37 04/16/2025 09:38:38 Osteoarthritis of left knee joint 0055988558 20186 M17.12 [id number] Health Concerns Section Related Observation LastModified by Organization Detai ls LastModified Time None Recorded Concern Status LastModified by Organization Details LastModified Time None Recorded Payers Encounter Date Sequence Insurance Name Policy Number Policy Mora Covered Member ID Mora Member ID Guarantor Name 04/16/2025 1 [place] [employer] Jossie Maradiaga [id number] Jossie Maradiaga 04/16/2025 2 [place] [id number] Jossie Maradiaga [id number] Jossie Maradiaga OBGyn Episode No OBEpisode recorded.
--- OUTSIDE RECORDS SUMMARY | 2025-04-21 16:37 | XMS_ITS | Continuity of Care Document ---
Author Organization [place] - [facility], JAYY Bustamante 3rd floor Address [address] [place] [address] Care Team Providers Care Courtesy Clerk Name Role Phone IRINEO AGOSTO Primary Care Provider Assessment No assessment recorded. Plan of Treatment Reminders Order Date Submit Date Provider Last Modified By Organization Details Last Modified Time Details Appointments SURGERY @ [facility] 2025 11:30A M Mahad Robin MD Not available Not available Not available POST OP 15 2025 11:00A M Joseline Miller CNP Not available Not available Not available RECHECK 10 2025 01:30P Chi Robin MD Not available Not available Not available Lab None recorded. Referral None recorded. Procedures None recorded. Surgeries None recorded. Imaging XR, knee, 4 or more view - RM 312 LEFT KNEE 4V 2024 025 [email or web address] [facility], [address], [facility] [address], [place], [address], 03/09/2025 10:19:40 Medication Orders Celebrex 200 mg capsule 2024 025 [email or web address] [facility] #[id number], [address] [place], [address], 03/09/2025 10:38:48 Patient TargetsNo targets recorded. Patient InstructionsNo instructions recorded. Reason for Referral None Reported. Results Created Date Observation Date Name Description Value Unit Range Abnormal Flag Note LastModifiedBy Organization Detail LastModifiedTime 03/09/20 25 03/09/2025 XR, knee, 4 or more view http:/ [email or web address] ?Encry pted=s hAaTro YD8dLq bEUv6g %2BXZw aYqtaq 0bqfl% 2Fg9IQ a4ajBk vP9nXo QUaueC m3YtLR FvZlgJ JJ8mAn HZtai3 5i3585 AC0Klb XmMWKS uKiQtr MwF INTERFACE [facility] [address] [facility] [address], [place], [address], 03/09/2025 10:12:36 03/09/2003/09/2025 XR, knee, 4 or more view http:/ [email or web address] ?Encry pted=s [place] YD8dLq bEUv6g %2BXZw aYqtaq 0bqfl% 2Fg9IQ a4ajBk vP9nXo QUaueC m3YtLR FvZlgJ JJ8mAn HZtai3 8h3304 AC0Klb XmMWKS uKiQtr MwF INTERFACE [facility] [address] [facility] [address], [place], [address], 03/09/2025 10:12:38 Result Notes Documentation Provider Name and Address Organization Details Recorded Time Xr, Knee, 4 Or More View : [email or web address] Encrypted=brIbBsoOM4fOxqN Uv6g%5CDXgmNjtpb2weyp%2Fg 1RNe7nhKpcS1cYwLKumlWg4Tl GZAaLamRFF2bEuLNcmn40d152 4BC7RysXwXMGTqQpRqwYpZ Not Available [facility] 03/09/2025 10:12: 36 Xr, Knee, 4 Or More View : [email or web address]? Encrypted=jgPyDatCH1iMmhG Uv6g%4YJJdcGvetl1ihpf%2Fg 6NLy4nbQwjB4bBlWCsucMe0Gy SCHsLrpYGJ6uCnWMyin35z828 0SX5WxkOvRQCNnUkEweJeQ Not Available [facility] 03/09/2025 10:12: 38 Medical Equipment None Reported. Allergies Allergen ID Allergen Name Allergen Category Reaction Reaction Severity Criticality Documentation Date Start Date Code Code System Note Provider Name and Address Organization Details Recorded Time 363454 codeine medicatio n Not available Not available high 04/16/20252011 2670 RxNorm unrec ogniz ed react ion (text : GI Upset , code: 03789 005) (from exter nal sourc e) Not Available [employer] - prod 5 04:06:28 472331 meclizine medicatio n other Not available high 04/16/20252011 6676 RxNorm Dizzi ness, rash Not Available [employer] - prod 5 04:06:28 736289 medroxypr ogesteron e medicatio n anaphylax is Not available high 04/16/20252011 6691 RxNorm Not Available [facility] [employer] - prod 5 04:06:28 598123 nystatin medicatio n Not available Not available Not available 04/16/20252023 7597 RxNorm Not Available [employer] - prod 5 04:06:28 929752 apremilas t medicatio n diarrhea Not available high 04/16/20252021 32895 27 RxNorm Sever e depre ssion Not Available [employer] - prod 5 04:06:28 442742 simvastat in medicatio n rash Not available low 04/16/20252018 51456 RxNorm Not Available [employer] - prod 5 04:06:28 632786 Product containin g 3-hydroxy -3-methyl glutaryl- coenzyme A reductase inhibitor (product) medicatio n myalgias (muscle pain) Not available high 04/16/20252024 40783 009 SNOMED Not Available [address] Service - prod 5 04:06:28 Medications Name [...] 2nd Gen Pen Needle 32 gauge x USE ONCE DAILY TO ADMNISTER INSULIN DIRECTED [...] Updated DateTime 03/09/2025 154.94 cm 23.1 kg/m2 97151.27 g Diana Back [place] - [facility] 03/09/2025 10:47:21 Social History None recorded. Functional Status None recorded. Mental Status None recorded. Family History Nothing Reported. Medical History No medical history recorded. Gynecological HistoryNo gynecological history recorded. Obstetrics History GPAL:G 0 P 0 0 0 0 Past Encounters Encounter ID Performer Location Encounter Start Date Encounter Closed Date Diagnosis/Indication Diagnosis SNOMED-CT Code Diagnosis ICD10 Code Diagnosis IMO Codes Diagnosis Note [id number] TONYA William 3rd floor [address] [facility] [place] [address] 03/09/2025 09:47:50 03/19/2025 10:29:54 Pain of left knee joint [id number] 15369 M25.562 512590 Osteoarthr itis of left knee joint 0874803742 40753 M17.12 [id number] Health Concerns Section Related Observation LastModified by Organization Detai ls LastModified Time None Recorded Concern Status LastModified by Organization Details LastModified Time None Recorded Payers Encounter Date Sequence Insurance Name Policy Number Policy Mora Covered Member ID Mora Member ID Guarantor Name 03/09/2025 1 [place] [employer] Jossie Maradiaga [id number] Jossie Maradiaga 03/09/2025 2 [place]) [id number] Jossie Maradiaga [id number] Jossie May Maradiaga Notes Date Note Type Note Provider Name and Address Organization Details Recorded Time 03/09/2025 text/html I am seeing the patient today under the supervision of Dr. Fraire who was available but who did not see the patient. HPI: Patient presents today regarding their left knee. They have had difficulty up and down stairs sitting standing. Problems ambulating. Smni-nmz-jsvrygl medications are helping somewhat but not significantly. [...] scheduled. All questions answered Karissa Beltrán PA-C [address] [place], [place] [address]wali [address], [place], [address], [facility] - [facility] 03/09/2025 10:37:08 OBGyn Episode No OBEpisode recorded.
== END 2025-04-21 08:57 | disposition home or self-care (01) ==
LOC: HO.NEURO 08:56
PROVIDERS: Visit Provider Orthopaedic Surgery
DX: R20.0 Anesthesia of skin (principal); R20.2 Paresthesia of skin; M79.641 Pain in right hand; M79.642 Pain in left hand; M65.30 Trigger finger, unspecified finger
CPT/HCPCS: 95886; 95911

== ENCOUNTER → 2025-04-21 09:02 | Outpatient (BNV) | payer MEDICARE, BC, SELFPAY | PROVIDERS: Visit Provider Physical Medicine & Rehabilitation | DX: G56.03 Carpal tunnel syndrome, bilateral upper limbs (principal); G56.23 Lesion of ulnar nerve, bilateral upper limbs | CPT/HCPCS: 95886; 95911 ==

== ENCOUNTER 2025-06-01 10:45 | Outpatient (AMB) | payer MEDICARE, BC, SELFPAY ==
--- NOTE | 2025-06-01 11:04 | MHC.OFFVIS ---
Vital Signs 06/01/25 11:05 Height 5 ft 1 in Weight 122 lb BMI 23.0 Intake Visit Reasons: OV-EMG Review Intake Note: Jossie 69 yr old right hand dominant female presents today for her EMG review of bilateral hands and to discuss left trigger thumb release as well. IMPRESSION: 1. This is an abnormal study. 2. There is electrodiagnostic evidence for bilateral moderate-severe median neuropathy at the wrist, consistent with carpal tunnel syndrome. 3. There is evidence for chronic bilateral ulnar neuropathy, more severe on left than right, both poorly localizable. 4. There is no electrodiagnostic evidence for brachial plexopathy or cervical radiculopathy. Allergies atorvastatin (From LIPITOR) Allergy (Unknown, Unverified 06/01/25 11:06) LARGE BOILS codeine (CODEINE) Allergy (Unknown, Unverified 06/01/25 11:06) NAUSEA & VOMITING fenofibrate (FENOFIBRATE) Allergy (Unknown, Unverified 06/01/25 11:06) RASH loratadine (LORATADINE) Allergy (Unknown, Unverified 06/01/25 11:06) RASH meclizine (MECLIZINE) Allergy (Unknown, Unverified 06/01/25 11:06) RASH medroxyprogesterone (From PROVERA) Allergy (Unknown, Unverified 06/01/25 11:06) ANAPHYLAXIS metformin (METFORMIN) Allergy (Unknown, Unverified 06/01/25 11:06) WHOLE PILL (500MG) GI DISTRESS, DIZZINESS metoprolol (METOPROLOL) Allergy (Unknown, Unverified 06/01/25 11:06) ITCHING simvastatin (SIMVASTATIN) Allergy (Unknown, Unverified 06/01/25 11:06) BOILS/RASH CHOLESTEROL MEDS Allergy (Unknown, Uncoded 06/01/25 11:06) BOILS, RASH HPI HPI OV-EMG Review: Details: Jossie is a 69 year old right hand dominant Diabetic woman who returns for a NCS review of her bilateral hand numbness. She complains of bilateral hand numbness, which she says is present in all fingers and constant throughout the day. She complains of painful locking & catching of her bilateral thumbs. She denies any prior injections, and has been taping/splinting her thumbs in extension at home which give her some relief. She is a Diabetic, a smoker, and is on Skyrizi for Psoriasis. She has a Hx of Gout & postherpetic neuralgia. Her most recent HgA1c was 6.1% and she is managing this with Metformin & diet. [facility] Medical History (Updated 06/01/25 @ 11:22 by Jacinto Baum) FHx: bowel obstruction Social History Current occupational status: retired Current occupation: rt hand Review of Systems Const All systems reviewed & are unremarkable except as noted in HPI and below Physical Exam Vital Signs: BMI result Body Mass Index 23.0 Const General: no acute distress and alert Orientation/consciousness: patient oriented x3 Neuro General: patient oriented x3 Extrem Other: Evaluation of Bilateral Upper Extremity: The patient is alert, oriented, and in no acute distress Neuro: Dense numbness in the median nerve distribution bilaterally. decreased subjective sensation in the small fingers bilaterally No thenar or intrinsic wasting Good APB muscle belly firing and good finger cross Vascular: Cap refill brisk ROM: She can make a fist and extend all her digits Visible & palpable locking & catching of the left thumb patient reports similar locking in the opposite thumb, which she feels it is worse Tender over the a1 peter bilaterally Nerve conduction study: IMPRESSION: 1. This is an abnormal study. 2. There is electrodiagnostic evidence for bilateral moderate-severe median neuropathy at the wrist, consistent with carpal tunnel syndrome. 3. There is evidence for chronic bilateral ulnar neuropathy, more severe on left than right, both poorly localizable. 4. There is no electrodiagnostic evidence for brachial plexopathy or cervical radiculopathy. Thank you for your kind referral. Marlen Juarez MD, RUBÉN 04/21/25 Radiographs: 3 views of the bilateral hands from 02/17/25 were reviewed by me today in clinic. They show mild basal joint arthritis. Psych Appearance: grossly normal Affect: normal affect Attitude: cooperative Assessment & Plan Assessment & Plan (1) Trigger thumb, left thumb: Code(s): M65.312 - Trigger thumb, left thumb Category: Medical (2) Carpal tunnel syndrome of left wrist: Code(s): G56.02 - Carpal tunnel syndrome, left upper limb Category: Medical (3) Cubital tunnel syndrome on left: Code(s): G56.22 - Lesion of ulnar nerve, left upper limb Category: Medical (4) Carpal tunnel syndrome of right wrist: Code(s): G56.01 - Carpal tunnel syndrome, right upper limb Category: Medical (5) Cubital tunnel syndrome on right: Code(s): G56.21 - Lesion of ulnar nerve, right upper limb Category: Medical (6) Trigger thumb, right thumb: Code(s): M65.311 - Trigger thumb, right thumb Category: Medical (7) Diabetes mellitus: Code(s): E11.9 - Type 2 diabetes mellitus without complications Category: Medical Plan Assessment & Plan: 1. Left trigger thumb 2. Left carpal tunnel syndrome, moderate-severe With dense numbness 3. Left cubital tunnel syndrome With numbness in the small finger I educated her about these conditions I discussed operative and non-operative treatment options The patient would like to proceed with surgery, beginning with her left side I explained the risks of her sensation not returning, but that surgery is important to maintain muscle function and preserve any sensation possible. She expressed understanding The risks and benefits of operative treatment were discussed with the patient and the patient wishes to proceed with surgery. These risks include, but are not limited to risk of damage to blood vessels, nerves, tendons, infection, recurrence, incomplete relief of preoperative symptoms, persistent pain, possible need for further surgery and the risks associated with regional blocks and anesthesia. The plan is to take the patient to the operating room sometime in the next few weeks for the following procedures: 1. Left cubital tunnel release, under general 2. Left carpal tunnel release, under general 3. Left trigger thumb release, under general All of the preoperative paperwork including the consent was reviewed today. All the patient's questions were answered. The patient understands that they will be contacted by our neurological surgery teacher soon to schedule this procedure She denies blood thinners, asthma, heart, lung, kidney issues She is a Diabetic, her most recent HgA1c was 6.1%. She is on Skyrizi for psoriasis. She will need to speak with her Patient Appointment Coordinator or PCP for instructions on stopping her medication prior to surgery and when to resume. She should have the procedure at the end of her 3 month injection cycle and her injection should not be given until after her 1st postop appointment. 4. Right trigger thumb 5. Right carpal tunnel syndrome, moderate-severe With dense numbness 6. Right cubital tunnel syndrome Decreased subjective sensation in the small finger We will discuss treatment when her left side has recovered. Scribed for Faby Vivas MD by Jacinto Baum, medical laboratory scientist, on 02/17/25 at 9:35 AM, EST. Coding Level of Care Code Est Pt Level 4 (46880) Diagnoses Trigger thumb, left thumb M65.312 Carpal tunnel syndrome of left wrist G56.02 Cubital tunnel syndrome on left G56.22 Carpal tunnel syndrome of right wrist G56.01 Cubital tunnel syndrome on right G56.21 Trigger thumb, right thumb M65.311 Diabetes mellitus E11.9
[2025-06-01 11:05] VITALS: BMI 23.0
--- OUTSIDE RECORDS SUMMARY | 2025-06-01 14:28 | XMS_ITS | Encounter Summary ---
Author Organization [facility] Address [address] [facility] [address] [place] [address] Phone Care Team Providers Care Bar Supervisor Name Role Phone Natalie Laurie Heart DO Primary Care Provider [phone] Jacquelin Long MD Primary Care Provider + Greg Castaneda DO Primary Care Provider Meagan Bowers MD Primary Care Provider Encounter Details Date Type Department Care Team (Latest Contact Info) Description 10/14/2023 Hospital Encounter Katharina Amado MD [address] [place] [address] [email or web address] Social History Tobacco Use Types Packs/Day Years [...] on file documented as of this encounter Progress Notes * Olga Marquis RN - 10/14/2023 9:22 PM EDT TRANSFER CENTER ACCEPT NOTE SITUATIONAL AWARENESS: Name of transferring hospital: [facility] Name of transferring physician: Dr Diggs Contact number for transferring physician: [phone] Contact number of transferring floor: [phone] Name of patient's HCP: Unknown Contact number [...] high-risk of requiring intensive care unit at [facility] (i.e., at high risk of needing pressor support, respiratory support [e.g., non-invasive positive pressure support or intubation] or high nursing needs) Watch Current clinical status (i.e., vital signs, vital sign trend, or laboratory data) that indicates this patient is at moderate-risk of requiring intensive care unit at [facility] AND/OR the patient was in the intensive care unit at the transferring hospital within the past 24 hours Stable Current clinical status (i.e., vital signs, vital sign trend, or laboratory data) that indicates this patient is at low-risk of requiring intensive care unit at [facility] AND/OR the patient was in the intensive [...] additional clinical information in the following locations: CareEverywhere Chart Review => Encounters => [facility] Admissions => right hand side is timeline of the transfer information and collected data. This may also include additional pieces of clinical information documented in this encounter Plan of Treatment Upcoming Encounters Date Type Department Care Team (Late st Contact Info) Description 10/09/2025 1:00 PM EDT Appointment [address] [address] Meagan Bowers MD [address] [place] [address] [email or web address] documented as of this encounter Visit Diagnoses Not on filedocumented in this encounter Additional Health Concerns Infection Onset Date Last Indicated Resolved Time CoV-Risk 01/25/2024 01/25/2024 02/05/2024 1:22 AM EDT documented as of this encounter Care Teams Bar Supervisor Relationship Specialty Start Date End Date Laurie Estrada DO [address] [place] [address] PCP - General Internal Medicine 12/24/16 10/14/23 Jacquelin Long MD [address] [place] [address] [email or web address] PCP - General Family Medicine 10/15/23 08/12/24 Greg Castaneda DO [address] [place] [address] PCP - General Internal Medicine 08/13/24 09/18/24 Meagan Bowers MD [address] [place] [address] [email or web address] PCP - General Family Medicine 09/19/24 documented as of this encounter Additional Source Comments The information contained in this document represents components of the legal health record. It is not the complete legal health record.[facility]
--- OUTSIDE RECORDS SUMMARY | 2025-06-01 14:28 | XMS_ITS | Encounter Summary ---
Author Organization [facility] Address [address] [place] [address] Phone Care Team Providers Care Web Editor Name Role Phone [email or web address] Laurie Heart DO Primary Care Provider Jacquelin Long MD Primary Care Provider + Greg Castaneda DO Primary Care Provider [phone] Meagan Bowers MD Primary Care Provider [phone] Encounter Details Date Type Department Care Team (Latest Contact Info) Description 02/21/2023 Transcribe Orders Virtual Department 30 [place] [address] Jacquelin Long MD [address] [place], [place] [phone] [email or web address] Asymptomatic menopausal state (Primary Dx) Social [...] as of this encounter Plan of Treatment Upcoming Encounters Date Type Department Care Team (Late st Contact Info) Description 10/09/2025 1:00 PM EDT Appointment [facility], Bone Density [facility] [address] [place] [address] Meagan Bowers MD [address] [place] [address] [email or web address] documented as of this encounter Visit Diagnoses Diagnosis Asymptomatic menopausal state- Primary documented in this encounter Additional Health Concerns Infection Onset Date Last Indicated Resolved Time CoV-Risk 01/25/2024 01/25/2024 02/05/2024 1:22 AM EDT documented as of this encounter Care Teams Web Editor Relationship Specialty Start Date End Date Laurie Estrada DO [address] [place] [address] PCP - General Internal Medicine 12/24/16 10/14/23 Jacquelin Long MD [address] [place] [address] [email or web address] PCP - General Family Medicine 10/15/23 08/12/24 Greg Castaneda DO [address] [place] [address] PCP - General Internal Medicine 08/13/24 09/18/24 Meagan Bowers MD [address] [place] [address] [email or web address] PCP - General Family Medicine 09/19/24 documented as of this encounter Additional Source Comments The information contained in this document represents components of the legal health record. It is not the complete legal health record.[facility]
--- OUTSIDE RECORDS SUMMARY | 2025-06-01 14:29 | XMS_ITS | Encounter Summary ---
Author Organization [facility] Address [address] [facility] [address] [place] [address] Phone Care Team Providers Care Barrel Polisher Inside Name Role Phone Natalie Laurie Heart DO Primary Care Provider [phone] Jacquelin Long MD Primary Care Provider + Greg Castaneda DO Primary Care Provider Meagan Bowers MD Primary Care Provider Encounter Details Date Type Department Care Team (Late st Contact Info) Description 12/02/2019 Transcribe Orders [facility] Specimen Processing 30 [place] [address] Juana Wells MD [address], [place] [phone] Social History Tobacco Use Types Packs/Day Years [...] Info) Description 10/09/2025 1:00 PM EDT Appointment [facility], Bone Density - [facility] [address] [place] [address] Meagan Bowers MD [address] [place] [address] [email or web address] documented as of this encounter Visit Diagnoses Not on filedocumented in this encounter Additional Health Concerns Infection Onset Date Last Indicated Resolved Time CoV-Risk 01/25/2024 01/25/2024 02/05/2024 1:22 AM EDT documented as of this encounter Care Teams Barrel Polisher Inside Relationship Specialty Start Date End Date Laurie Etsrada DO [address] [place] [address] PCP - General Internal Medicine 12/24/16 10/14/23 Jacquelin Long MD [address] [place] [address] [email or web address] PCP - General Family Medicine 10/15/23 08/12/24 Greg Castaneda DO [address] [place] [address] PCP - General Internal Medicine 08/13/24 09/18/24 Meagan Bowers MD [address] [place] [address] [email or web address] PCP - General Family Medicine 09/19/24 documented as of this encounter Additional Source Comments The information contained in this document represents components of the legal health record. It is not the complete legal health record.[facility]
--- OUTSIDE RECORDS SUMMARY | 2025-06-01 14:29 | XMS_ITS | Encounter Summary ---
Author Organization [facility] Address [address] [place] [address] Phone Care Team Providers Care Manager Fitness Name Role Phone Laurie Estrada DO Primary Care Provider [phone] Laurie Estrada DO Unavailable [phone] Jacquelin Long MD Primary Care Provider + Greg Castaneda DO Primary Care Provider [phone] Meagan Bowers MD Primary Care Provider [phone] Encounter Details Date Type Department Care Team (Late st Contact Info) Description 01/22/2019 Procedure Pass [facility] Endoscopy Admitting Dept Virtual Department [address] [place], [place] [phone] Social History Tobacco Use Types Packs/Day Years [...] Info) Description 10/09/2025 1:00 PM EDT Appointment [facility] Density - [facility] [address] [place] [address] Meagan Bowers MD [address] [place] [address] [email or web address] documented as of this encounter Visit Diagnoses Not on filedocumented in this encounter Additional Health Concerns Infection Onset Date Last Indicated Resolved Time CoV-Risk 01/25/2024 01/25/2024 02/05/2024 1:22 AM EDT documented as of this encounter Care Teams Manager Fitness Relationship Specialty Start Date End Date Laurie Estrada DO [address] [place] [address] PCP - General Internal Medicine 12/24/16 10/14/23 Jacquelin Long MD [address] [place] [address] [email or web address] PCP - General Family Medicine 10/15/23 08/12/24 Greg Castaneda DO [address] [place] [address] PCP - General Internal Medicine 08/13/24 09/18/24 Meagan Bowers MD [address] [place] [address] [email or web address] PCP - General Family Medicine 09/19/24 Laurie Estrada DO [address] [place] [address] Insurance Assigned Provider 10/05/17 02/07/19 documented as of this encounter Additional Source Comments The information contained in this document represents components of the legal health record. It is not the complete legal health record.[facility]
--- OUTSIDE RECORDS SUMMARY | 2025-06-01 14:29 | XMS_ITS | Encounter Summary ---
Author Organization [facility] Address [address] [place] [address] Phone Care Team Providers Care Preassembler Printed Circuit Board Name Role Phone Laurie Estrada DO Primary Care Provider [phone] Laurie Estrada DO Unavailable [phone] Jacquelin Long MD Primary Care Provider + Greg Castaneda DO Primary Care Provider [phone] Meagan Bowers MD Primary Care Provider Encounter Details Date Type Department Care Team (Late st Contact Info) Description 01/28/2019 Procedure Pass [facility] Endoscopy Department [address] [place] [address] Social History Tobacco Use Types Packs/Day Years [...] Info) Description 10/09/2025 1:00 PM EDT Appointment [facility], Bone Density - [address] [address] Meagan Bowers MD [address] [place] [address] [email or web address] documented as of this encounter Visit Diagnoses Not on filedocumented in this encounter Additional Health Concerns Infection Onset Date Last Indicated Resolved Time CoV-Risk 01/25/2024 01/25/2024 02/05/2024 1:22 AM EDT documented as of this encounter Care Teams Preassembler Printed Circuit Board Relationship Specialty Start Date End Date Laurie Estrada DO [address] [place] [address] PCP - General Internal Medicine 12/24/16 10/14/23 Jacquelin Long MD [address] [place] [address] [email or web address] PCP - General Family Medicine 10/15/23 08/12/24 Greg Castaneda DO [address] [place] [address] PCP - General Internal Medicine 08/13/24 09/18/24 Meagan Bowers MD [address] [place] [address] [email or web address] PCP - General Family Medicine 09/19/24 Laurie Estrada DO [address] [place] [address] Insurance Assigned Provider 10/05/17 02/07/19 documented as of this encounter Additional Source Comments The information contained in this document represents components of the legal health record. It is not the complete legal health record.[facility]
--- OUTSIDE RECORDS SUMMARY | 2025-06-01 14:29 | XMS_ITS | Encounter Summary ---
Author Organization [facility] Address [address] [place] [address] Phone Care Team Providers Care Oil Burner Technician Name Role Phone Laurie Estrada DO Primary Care Provider Laurie Estrada DO Unavailable [phone] Jacquelin Long MD Primary Care Provider + Greg Castaneda DO Primary Care Provider Meagan Bowers MD Primary Care Provider Encounter Details Date Type Department Care Team (Latest Contact Info) Description 09/09/2017 Transcribe Orders [facility]le[facility] [address] [place], [place] [phone] Bolivar Arteaga MD [address] [phone] Lower GI bleeding (Primary Dx) Social History [...] Info) Description 10/09/2025 1:00 PM EDT Appointment [facility], Bone Density - [address] [address] Meagan Bowers MD [address] [place] [address] [email or web address] documented as of this encounter Results * Ferritin (09/09/2017 3:14 PM EDT) FERRITIN 21 13 - 150 ug/L [facility] Blood 09/09/2017 3:14 PM EDT 09/09/2017 3:18 PM EDT us Bolivar Arteaga MD LAB BLOOD BKR ORDERABLES Fin al Result Performing Organization Address [facility]/ZIP Co de Phone Number [address] [address] * (ABNORMAL) Iron and iron binding capacity (09/09/2017 3:14 PM EDT) Pathologist [facility] IRON 33 30 - 160 ug/dL [facility] IRON BINDING CAPACITY 510(H) 228 - 428 ug/dL [facility] TRANSFERRIN SATURAT. 6(L) 15 - 50 % [facility] Blood 09/09/2017 3:14 PM EDT 09/09/2017 3:18 PM EDT us Bolivar Arteaga MD LAB BLOOD BKR ORDERABLES Fin al Result [address] [address] * (ABNORMAL) CBC and differential (09/09/2017 3:14 PM EDT) WBC 4.63 3.40 - 11.20 K/uL [facility] RBC 3.54(L) 3.80 - 4.80 M/uL [facility] HGB 10.5(L) 12.0 - 15.0 g/dL [facility] HCT 32.5(L) 36.0 - 46.0 % [facility] PLT 248 130 - 400 K/uL [facility] MCV 91.8 79.0 - 98.0 fL [facility] MCH 29.7 27.0 - 34.8 pg [facility] MCHC 32.3 31.5 - 36.0 g/dL [facility] RDW 13.5 10.8 - 14.6 % [facility] MPV 10.0 9.4 - 12.4 fl [facility] NRBC 0.00 /100 WBCs [facility] ABSOLUTE NRBC 0.00 K/uL [facility] DIFF METHOD Auto [facility] NEUTS 59.9 45.30 - 77.70 % [facility] LYMPHS 30.2 12.30 - 39.70 % [facility] MONOS 8.2 4.10 - 12.80 % [facility] EOS 1.1 0 - 7.2 % [facility] BASOS 0.6 0 - 2.80 % [facility] Granulocytes, immature (%) 0.0 0.0 - 0.9 % [facility] ABSOLUTE NEUTS 2.77 1.40 - 7.70 K/uL [facility] ABSOLUTE LYMPHS 1.40 0.60 - 3.20 K/uL [facility] ABSOLUTE MONOS 0.38 0.11 - 0.59 K/uL [facility] ABSOLUTE EOS 0.05 0.01 - 0.50 K/uL [facility] ABSOLUTE BASOS 0.03 0.00 - 0.08 K/uL [facility] Granulocytes, immature 0.00 0.00 - 0.05 K/uL [facility] Blood 09/09/2017 3:14 PM EDT 09/09/2017 3:18 PM EDT us Bolivar Arteaga MD LAB BLOOD BKR ORDERABLES Fin al Result [facility] [address] [place] [address] documented in this encounter Visit Diagnoses Diagnosis Lower GI bleeding- Primary Unspecified, hemorrhage of gastrointestinal tract documented in this encounter Additional Health Concerns Infection Onset Date Last Indicated Resolved Time CoV-Risk 01/25/2024 01/25/2024 02/05/2024 1:22 AM EDT documented as of this encounter Care Teams Oil Burner Technician Relationship Specialty Start Date End Date Laurie Estrada DO [address] [place] [address] PCP - General Internal Medicine 12/24/16 10/14/23 Jacquelin Long MD [address] [place] [address] [email or web address] PCP - General Family Medicine 10/15/23 08/12/24 Greg Castaneda DO [address] [place] [address] PCP - General Internal Medicine 08/13/24 09/18/24 Meagan Bowers MD [address] [place] [address] [email or web address] PCP - General Family Medicine 09/19/24 Laurie Estrada DO [address] [place] [address] Insurance Assigned Provider 10/05/17 02/07/19 documented as of this encounter Additional Source Comments The information contained in this document represents components of the legal health record. It is not the complete legal health record.[facility]
--- OUTSIDE RECORDS SUMMARY | 2025-06-01 14:29 | XMS_ITS | Encounter Summary ---
Author Organization [facility] Address [address] [facility] [address] [place] [address] Phone Care Team Providers Care Audiovisual Aids Technician Name Role Phone Jacquelin Long MD Primary Care Provider + Greg Castaneda DO Primary Care Provider [phone] Meagan Bowers MD Primary Care Provider Encounter Details Date Type Department Care Team (Late st Contact Info) Description 12/28/2023 Procedure Pass [facility], Ct Scan - [address] [address] Social History Tobacco Use Types Packs/Day Years [...] 10/09/2025 1:00 PM EDT Appointment [facility], Bone [address] [address] Meagan Bowers MD [address] [place] [address] [email or web address] documented as of this encounter Visit Diagnoses Not on filedocumented in this encounter Additional Health Concerns Infection Onset Date Last Indicated Resolved Time CoV-Risk 01/25/2024 01/25/2024 02/05/2024 1:22 AM EDT documented as of this encounter Care Teams Audiovisual Aids Technician Relationship Specialty Start Date End Date Jacquelin Long MD [email or web address] PCP - General Family Medicine 10/15/23 08/12/24 Greg Castaneda DO [address] [place] [address] PCP - General Internal Medicine 08/13/24 09/18/24 Meagan Bowers MD [address] [place] [address] PCP - General Family Medicine 09/19/24 documented as of this encounter Additional Source Comments The information contained in this document represents components of the legal health record. It is not the complete legal health record.[facility]
--- OUTSIDE RECORDS SUMMARY | 2025-06-01 14:29 | XMS_ITS | Clinical Summary ---
Author Organization [facility] Address [address] [place] [address] Care Team Providers Care Water Quality Assistant Name Role Phone Unavailable Primary Care Provider [...] of 2) 11/12/2003 COVID-19 Vaccine ( - 2024-2 6 season) 2025 RSV Vaccine 50 years and old er and Patients (1 - 1-dose 75+ series) 2028 Hepatitis B Vaccines Aged Out No long er eligible based on patient's age to complete this topic
--- OUTSIDE RECORDS SUMMARY | 2025-06-01 14:29 | XMS_ITS | Encounter Summary ---
Author Organization [facility] Address [address] [place] [address] Phone Care Team Providers Care Fence Rider Name Role Phone Meagan Bowers MD Primary Care Provider Encounter Details Date Type Department Care Team (Late st Contact Info) Description 09/19/2024 Procedure Pass [facility], Ct Scan - [address] [address] Social History Tobacco Use Types Packs/Day Years [...] Info) Description 10/09/2025 1:00 PM EDT Appointment [facility], Bone Density - [address] [address] Meagan Bowers MD [address] [place] [address] documented as of this encounter Visit Diagnoses Not on filedocumented in this encounter Care Teams Fence Rider Relationship Specialty Start Date End Date Meagan Bowers MD [address] [place] [address] [email or web address] PCP - General Family Medicine 09/19/24 documented as of this encounter Additional Source Comments The information contained in this document represents components of the legal health record. It is not the complete legal health record.[facility]
--- OUTSIDE RECORDS SUMMARY | 2025-06-01 14:29 | XMS_ITS | Encounter Summary ---
Author Organization [facility] Address [address] [facility] [address] [place] [address] Phone Care Team Providers Care Zinc Plate Cutter Name Role Phone Meagan Bowers MD Primary Care Provider [phone] Encounter Details Date Type Department Care Team (Latest Contact Info) Description 12/24/2024 Transcribe Orders Virtual Department [address] [place] [address] Meagan Bowers MD [address] [place], [place] [phone] [email or web address] Asymptomatic menopausal state (Primary Dx) Social [...] Info) Description 10/09/2025 1:00 PM EDT Appointment [facility], Bone Density - [address] [address] Meagan Bowers MD [address] [place] [address] [email or web address] documented as of this encounter Visit Diagnoses Diagnosis Asymptomatic menopausal state- Primary documented in this encounter Care Teams Zinc Plate Cutter Relationship Specialty Start Date End Date Meagan Bowers MD [address] [place] [address] [email or web address] PCP - General Family Medicine 09/19/24 documented as of this encounter Additional Source Comments The information contained in this document represents components of the legal health record. It is not the complete legal health record.[facility]
--- OUTSIDE RECORDS SUMMARY | 2025-06-01 14:29 | XMS_ITS | Clinical Summary ---
Author Organization [facility] Address [address] [place] [address] Phone Care Team Providers Care Research Contracts Supervisor Name Role Phone Meagan Bowers MD Primary Care Provider Allergies Active Allergy Reactions Criticality Noted Date Comments Codeine GI Upset Medium 09/11/2011 Meclizine Other (See Comments) Medium 09/11/2011 Dizziness, rash Medroxyprogesterone Anaphylaxis High 09/11/2011 Nystatin 10/14/2023 Apremilast Diarrhea High 11/23/2021 Severe depression Other 10/14/2023 Rest leg med pramoprexal Simvastatin Rash Low 01/20/2019 Xdlmhty-Rcs-Vtm Reductase Inhibitors Myalgia High 09/19/2024 Medications atenolol [...] Active ferrous sulfate 324 mg (65 mg seldovia iron) TbEC Take 324 mg by mouth [...] roughly 1/2 bottle daily since hospitalization at [facility] [place] for [place]. [...] Encounters Date Type Department Care Team Description 04/22/2025 Transcribe Orders Virtual Department [address] [place] [address] Meagan Bowers MD Asymptomatic menopausal state (Primary [...] 09/19/2024 3:55 PM EDT Plan of Treatment Upcoming Encounters Date Type Department Care Team (Late st Contact Info) Description 10/09/2025 1:00 PM EDT Appointment [facility], Bone Density - [address] [address] Meagan Bowers MD [address] [place] [address] [email or web address] Due Date Last Done Comments [...] EDT) SODIUM 140 133 - 146 mmol/L [facility] POTASSIUM 3.4 3.3 - 5.1 mmol/L [facility] CHLORIDE 104 96 - 108 mmol/L [facility] CO2 26 21 - 35 mmol/L [facility] BUN 9 6 - 19 mg/dL [facility] CREATININE 0.60 0.5 - 1.5 mg/dL [facility] GLUCOSE 265(H) 70 - 99 mg/dL [facility] ALBUMIN 2.5(L) 3.9 - 4.8 g/dL [facility] TOTAL PROTEIN 5.0(L) 6.5 - 8.0 g/dL [facility] CALCIUM 7.6(L) 8.4 - 10.3 mg/dL [facility] ALKALINE PHOSPHATASE 53 39 - 117 U/L [facility] TOTAL BILIRUBIN <0.2 0.0 - 1.2 mg/dL [facility] AST 10 0 - 37 U/L [facility] ALT 6 0 - 40 U/L [facility] GLOBULIN 2.5 1 - 4.8 g/dL [facility] EGFR 97 >59 mL/min/1.7 3m2 [facility] Comment:Estimated glomerular filtration rate calculated using the CKD-EPI refit equation. ANION GAP 13 10 - 20 mmol/L [facility] Blood 09/25/2024 6:53 AM EDT 09/25/2024 7:04 AM EDT us Bety Estrada MD LAB BLOOD BKR ORDERABLES Fi nal Result [address] [address] * (ABNORMAL) Liver fibrosis test (07/31/2024 10:25 AM EST) Fibrosis score 0.43 [facility] [place] Interpretation (Fibrosis) SEE NOTE [...] Grade SEE NOTE Q [facility] Comment: (NOTE) Result: F1-F2 NECROINFLAMM SCORE 0.20 Q [facility] NECROINFLAMM GRADE SEE NOTE Q [facility] Comment: (NOTE) Result: A0-A1 NECROINFLAMM INTERP SEE NOTE [employer] [employer] [facility] Comment: (NOTE) no activity ActiTest Score (a) [...] A2 Macroglobulin 285(H) 106 - 279 mg/dL [facility] [employer] Haptoglobin 123 43 - 212 mg/dL [employer]/ [facility] Apolipoprotein A1 140 101 - 198 mg/dL [employer] TOTAL BILIRUBIN 0.5 0.2 - 1.2 mg/dL [facility] [employer]/ [facility] GGT 24 3 - 65 U/L [employer]/ [facility] ALT 33(H) 6 - 29 U/L [employer]/ [facility] Specimen/Product ID [id number] [facility] [employer] Comments (Chemistry) SEE NOTE [employer] Comment: (NOTE) The reliability of results is dependent on compliance with the preanalytical and analytical conditions recommended by [employer]. The tests have to be deferred for: [...] The performance characteristics have been determined by [employer] [facility]. It has not been cleared or approved by the U.S. Food and Drug Administration. Performance characteristics refer to the analytical performance of the test. [employer], [employer], the associated logo, [employer] [place] and all associated [employer] reyes are the registered trademarks of [employer]. All third green party reyes - (R) and (TM) - are the property of their respective owners. (C) 5659-6710 [employer]. All rights reserved. Blood 07/31/2024 10:2 5 AM EST 07/31/2024 10:34 AM EST us Flor Fuller [employer] LAB BLOOD BKR ORDERABLES F inal Result [employer] [facility] [address] [place] [address], [facility] [phone] * Hemoglobin A1c (12/28/2023 5:35 AM EDT) Pathologist [facility] HEMOGLOBIN A1C 5.2 4.3 - 5.8 % [facility] Blood 12/28/2023 5:35 AM EDT 12/28/2023 6:16 AM EDT us Judy Rodriguez DO LAB BLOOD BKR ORDERABLES Bess l Result [address] [address] * ENDOSCOPY, COLON (11/24/2021 9:41 AM EDT) Narrative Transcriptions Bolivar Gimenez MD - 11/24/2021 9:41 AM EDT Patient Name: Jossie Maradiaga Attending MD:: BOLIVAR GIMENEZ MD Procedure Date: 11/24/2021 9:41 AM Date of : 1955 Age: 66 Admit Type: Outpatient Gender: Female Room: [place] [address] Referring MD: Laurie Estrada MD Exam Type: [...] monitored continuously. The Olympus adult variable colonoscope [id number] #[id number] was introduced through the anus and advanced to the cecum, identified by the appendiceal orifice. The colonoscopy was performed without difficulty. The patient tolerated the procedure well. The qualityof the bowel preparation was good. Anatomicallandmarks were photographed. Complications: No immediate complications. Estimated blood loss:None. Findings: The perianal and digital rectal examinations were normal. There was evidence of a prior bzu-pl-bwwhrtxl-colonic anastomosis in the sigmoid colon. This waspatent. [...] 9:41 AM Procedure Code(s): --- Professional --- 12021, Colonoscopy, flexible; with removal of tumor(s), polyp(s), or other lesion(s) by snare technique --- Technical --- 79501, Colonoscopy, flexible; with removal of tumor(s), polyp(s), [...] or abscess without bleeding CPT copyright 2020 [employer]. All rights reserved. The codes documented in this report are preliminary and upon rail car maintenance mechanic reviewmay be revised to meet current compliance requirements. Procedure Date: 11/24/2021 9:41:[address] [place] [address] Laurie Estrada DO GI PROCEDURE ORDERABLES Final Result from Last 3 Months or Most Recently Relevant to Health Maintenance Insurance MEDICARE PART A & B [employer] MED[employer] SUPPLEMENT MEDICARE PART A & B [employer] MEDEX SUPPLEMENT MEDICARE PART A & B Member Subscriber Plan / Payer ( fective 2018-Present) Name:Jossie Maradiaga Member ID:[id number] Relation to Subscriber:Self Name:Jossie Maradiaga Subscriber ID:[id number] Payer ID:[id number] Group ID:Not on file Type:Medicare Address: [facility] [employer] [facility] [address] [place] [phone] [facility] MEDEX SUPPLEMENT MEDICARE PART A & B Member Subscriber Plan / Payer ( fective 2018-Present) Name:Jossie Maradiaga Member ID:[id number] Relation to Subscriber:Self Name:Jossie Maradiaga Subscriber ID:[id number] Payer ID:[id number] Group ID:Not on file Type:Medicare Address: [facility] [employer] [facility] [address] [place] [address] [employer] MEDEX SUPPLEMENT MEDICARE PART A & B Member Subscriber Plan / Payer ( fective 2018-Present) Name:Jossie Maradiaga Member ID:[id number] Relation to Subscriber:Self Name:Jossie Maradiaga Subscriber ID:[id number] Payer ID:[id number] Group ID:Not on file Type:Medicare Address: [facility] [employer] [facility] [address] [place] [address] [employer] MEDEX SUPPLEMENT MEDICARE PART A & B [employer] MEDEX SUPPLEMENT MEDICARE PART A & B [employer] MEDEX SUPPLEMENT MEDICARE PART A & B [employer] MEDEX SUPPLEMENT MEDICARE PART A & B [employer] MEDEX SUPPLEMENT Advance Directives For more information, please contact: [phone] (9AM - 5PM [facility], Saturday-Saturday) Documents on File Type Date Recorded Patient Stencil Maker Expl anation Healthcare Proxy 09/28/2024 4:06 PM [...] Agent (Proxy form on file) Care Teams Research Contracts Supervisor Relationship Specialty Start Date End Date Meagan Bowers MD [address] [place] [address] PCP - General Family Medicine 09/19/24 Additional Source Comments The information contained in this document represents components of the legal health record. It is not the complete legal health record.[facility]
--- OUTSIDE RECORDS SUMMARY | 2025-06-01 14:29 | XMS_ITS | Encounter Summary ---
Author Organization [facility] Address [address] [place] [address] Phone Care Team Providers Care Respiratory Therapy Manager Name Role Phone Laurie Estrada DO Primary Care Provider [phone] Laurie Estrada DO Unavailable [phone] Jacquelin Long MD Primary Care Provider + Greg Castaneda DO Primary Care Provider Meagan Bowers MD Primary Care Provider Encounter Details Date Type Department Care Team (Late st Contact Info) Description 10/11/2017 Procedure Pass [facility] Endoscopy Admitting Dept [facility] Department [address] [place] [address] Social History Tobacco Use Types Packs/Day [...] Info) Description 10/09/2025 1:00 PM EDT Appointment [facility], [facility] [address] [place] [address] Meagan Bowers MD [address] [place] [address] [email or web address] documented as of this encounter Visit Diagnoses Not on filedocumented in this encounter Additional Health Concerns Infection Onset Date Last Indicated Resolved Time CoV-Risk 01/25/2024 01/25/2024 02/05/2024 1:22 AM EDT documented as of this encounter Care Teams Respiratory Therapy Manager Relationship Specialty Start Date End Date Laurie Estrada DO [address] [place] [address] PCP - General Internal Medicine 12/24/16 10/14/23 Jacquelin Long MD [address] [place] [address] [email or web address] PCP - General Family Medicine 10/15/23 08/12/24 Greg Castaneda DO [address] [place] [address] PCP - General Internal Medicine 08/13/24 09/18/24 Meagan Bowers MD [address] [place] [phone] [email or web address] PCP - General Family Medicine 09/19/24 Laurie Estrada DO [address] [place] [address] Insurance Assigned Provider 10/05/17 02/07/19 documented as of this encounter Additional Source Comments The information contained in this document represents components of the legal health record. It is not the complete legal health record.[facility]
--- OUTSIDE RECORDS SUMMARY | 2025-06-01 14:29 | XMS_ITS | Encounter Summary ---
Author Organization [facility] Address [address] [facility] [address] [place] [address] Phone Care Team Providers Care Director Of Provider Relations Name Role Phone Jacquelin Long MD Primary Care Provider + Greg Castaneda DO Primary Care Provider Meagan Bowers MD Primary Care Provider Encounter Details Date Type Department Care Team (Latest Contact Info) Description 03/25/2024 Transcribe Orders [facility]leb Lisbeth [address] [place] [address] [phone] Flor Fuller CNP [address] [place] [address] [phone] [email or web address] Fatty liver (Primary Dx) Social History Tobacco [...] Info) Description 10/09/2025 1:00 PM EDT Appointment [facility], Bone Density - [address] [address] Meagan Bowers MD [address] [place] [address] [email or web address] documented as of this encounter Results * (ABNORMAL) CBC and differential (03/25/2024 9:29 AM EDT) WBC 2.86(L) 4.00 - 11.00 K/uL [facility] RBC 4.41 4.00 - 5.20 M/uL [facility] HGB 15.0 12.0 - 16.0 g/dL [facility] HCT 45.4 36.0 - 46.0 % [facility] PLT 103(L) 150 - 450 K/uL [facility] Comment:Microscopic estimate : Platelets slightly decreased. MCV 102.9(H) 80.0 - 100.0 fL [facility] MCH 34.0(H) 27.0 - 31.0 pg [facility] MCHC 33.0 32.0 - 36.0 g/dL [facility] RDW 14.6(H) 11.5 - 14.5 % [facility] MPV 10.5 8.4 - 12.0 fl [facility] NRBC 0.00 0.00 /100 WBCs [facility] ABSOLUTE NRBC 0.00 0.00 K/uL [facility] DIFF METHOD Auto [facility] NEUTS 52.1 48.0 - 76.0 % [facility] LYMPHS 37.1 18.0 - 41.0 % [facility] MONOS 8.4 4.0 - 11.0 % [facility] EOS 1.4 0.0 - 5.0 % [facility] BASOS 0.7 0.0 - 1.5 % [facility] Granulocytes, immature (%) 0.3 0.0 - 0.9 % [facility] ABSOLUTE NEUTS 1.49(L) 1.92 - 7.60 K/uL [facility] ABSOLUTE LYMPHS 1.06 0.72 - 4.10 K/uL [facility] ABSOLUTE MONOS 0.24 0.16 - 1.10 K/uL [facility] ABSOLUTE EOS 0.04 0.00 - 0.50 K/uL [facility] ABSOLUTE BASOS 0.02 0.00 - 0.15 K/uL [facility] Granulocytes, immature 0.01 0.00 - 0.09 K/uL [facility] Blood 03/25/2024 9:29 AM EDT 03/25/2024 9:34 AM EDT us Flor Fuller [employer] LAB BLOOD BKR ORDERABLES F inal Result [address] [address] * (ABNORMAL) LFTs (hepatic panel) (03/25/2024 9:29 AM EDT) ALKALINE PHOSPHATASE 100 39 - 117 U/L [facility] TOTAL BILIRUBIN 0.5 0.0 - 1.2 mg/dL [facility] DIRECT BILIRUBIN <0.2 0 - 0.3 mg/dL [facility] Bilirubin (Indirect) NOT CALCULATED 0 - 1.5 mg/dL [facility] AST 52(H) 0 - 37 U/L [facility] ALT 24 0 - 40 U/L [facility] TOTAL PROTEIN 7.3 6.5 - 8.0 g/dL [facility] ALBUMIN 3.7(L) 3.9 - 4.8 g/dL [facility] GLOBULIN 3.6 1 - 4.8 g/dL [facility] A/G Ratio 1.03 1.00 - 4.80 RATIO [facility] Blood 03/25/2024 9:29 AM EDT 03/25/2024 9:34 AM EDT Flor Fuller [facility] LAB BLOOD BKR ORDERABLES F inal Result Performing Organization Address City/[facility]/ZIP Co de Phone Number [address] [address] * (ABNORMAL) Immunoglobulin A (03/25/2024 9:29 AM EDT) Pathologist [facility] IgA 502(H) 70 - 400 mg/dL [facility] Blood 03/25/2024 9:29 AM EDT 03/25/2024 9:34 AM EDT Flor [facility] LAB BLOOD BKR ORDERABLES F inal Result [address] [address] * Tissue transglutaminase IgA (03/25/2024 9:29 AM EDT) TTG IGA ANTIBODY 1.3 <4.0 (Negative) U/mL [facility] LAB MED/[facility] Blood 03/25/2024 9:29 AM EDT 03/25/2024 9:34 AM EDT Flor Fuller [facility] LAB BLOOD BKR ORDERABLES F inal Result [facility] LAB MED/[facility] [address] [place] [address] * (ABNORMAL) GGT (Gamma glutamyl transferase) (03/25/2024 9:29 AM EDT) GGT 89(H) 7 - 33 U/L [facility] Blood 03/25/2024 9:29 AM EDT 03/25/2024 9:34 AM EDT Flor Fuller [facility] LAB BLOOD BKR ORDERABLES F inal Result Performing Organization Address City/[facility]/ZIP Co de Phone Number [facility] [address] [place] [address] documented in this encounter Visit Diagnoses Diagnosis Fatty liver- Primary Other chronic nonalcoholic liver disease documented in this encounter Care Teams Director Of Provider Relations Relationship Specialty Start Date End Date Jacquelin Long MD [email or web address] PCP - General Family Medicine 10/15/23 08/12/24 Greg Castaneda DO [address] [place] [address] PCP - General Internal Medicine 08/13/24 09/18/24 Meagan Bowers MD [address] [place] [address] [email or web address] PCP - General Family Medicine 09/19/24 documented as of this encounter Additional Source Comments The information contained in this document represents components of the legal health record. It is not the complete legal health record.[facility]
--- OUTSIDE RECORDS SUMMARY | 2025-06-01 14:29 | XMS_ITS | Encounter Summary ---
Author Organization [facility] Address [address] [facility] [address] [place] [address] Phone Care Team Providers Care Copier Technician Name Role Phone Meagan Bowers MD Primary Care Provider Encounter Details Date Type Department Care Team (Late st Contact Info) Description 09/23/2024 Telephone [facility] Medicine Virtual Department [address] [place] [address] Bety Estrada MD [address] [place] [address] [email or web address] Social History Tobacco Use Types Packs/Day Years [...] Info) Description 10/09/2025 1:00 PM EDT Appointment [facility], Bone Density - [address] [address] Meagan Bowers MD [address] [place] [phone] [email or web address] documented as of this encounter Visit Diagnoses Not on filedocumented in this encounter Care Teams Copier Technician Relationship Specialty Start Date End Date Meagan Bowers MD [address] [place] [address] [email or web address] PCP - General Family Medicine 09/19/24 documented as of this encounter Additional Source Comments The information contained in this document represents components of the legal health record. It is not the complete legal health record.[facility]
--- OUTSIDE RECORDS SUMMARY | 2025-06-01 14:29 | XMS_ITS | Encounter Summary ---
Author Organization [facility] Address [address] [place] [address] Phone Care Team Providers Care Players Assistant Name Role Phone Jacquelin Long MD Primary Care Provider + Greg Castaneda DO Primary Care Provider Meagan Bowers MD Primary Care Provider Encounter Details Date Type Department Care Team (Latest Contact Info) Description 05/08/2024 Transcribe Orders [facility] Phleb Lisbeth [address] [place] [address] [phone] Flor Fuller CNP [address] [place] [address] [phone] [email or web address] Fatty liver (Primary Dx); Iron deficiency anemia [...] Info) Description 10/09/2025 1:00 PM EDT Appointment [facility], Bone Density [address] [address] Meagan Bowers MD [address] [place] [address] [phone] [email or web address] documented as of this encounter Results * Phosphatidylethanol (05/08/2024 10:28 AM EST) [facility] PEt 16:0/18:1 (POPEth) by LC-MS/MS 61 Cutoff: 10 ng/mL [facility] [place] Comment: (NOTE) Phosphatidylethanol (PEth) homologues result interpretation [...] (PLPEth) by LC-MS/MS 14 Cutoff: 10 ng/mL [facility] [place] Comment: (NOTE) PEth 16:0/18:2 (PLPEth) Reference ranges are not well established PEth Interpretation Positive. [facility] [place] Comment: (NOTE) ADDITIONAL INFORMATION This report is intended for use in clinical monitoring and management of patients. It is not intended for use in employment-related testing. This test was developed and its performance characteristics determined by [facility] in a manner consistent with CLIA requirements. This test has not been cleared or approved by the U.S. Food and Drug Administration. Blood 05/08/2024 10:2 8 AM EST 05/08/2024 10:38 AM EST us Flor Fuller [facility] LAB BLOOD BKR ORDERABLES F inal Result [facility] [place] [address] [place] [address] * Vitamin B12 (05/08/2024 10:28 AM EST) VITAMIN B12 914 232 - 1,245 pg/mL [facility] Blood 05/08/2024 10:2 8 AM EST 05/08/2024 10:37 AM EST Flor Fuller [facility] LAB BLOOD BKR ORDERABLES F inal Result Performing Organization Address [facility] Co de Phone Number [address] [address] * PT-INR (05/08/2024 10:28 AM EST) PT 11.0 10.2 - 12.9 sec [facility] INR 1.0 0.9 - 1.1 [facility] Comment:Therapeutic range fo r oral Vitamin K antagonists: 2.0-3.5 Blood 05/08/2024 10:2 8 AM EST 05/08/2024 10:37 AM EST Flor Fuller [facility] LAB BLOOD BKR ORDERABLES F inal Result Performing Organization Address [facility] de Phone Number [address] [address] * (ABNORMAL) Ferritin (05/08/2024 10:28 AM EST) FERRITIN 275(H) 13 - 150 ug/L [facility] Blood 05/08/2024 10:2 8 AM EST 05/08/2024 10:37 AM EST Flor Fuller [facility] LAB BLOOD BKR ORDERABLES F inal Result Performing Organization Address [facility] Co de Phone Number [address] [address] * Folate (05/08/2024 10:28 AM EST) FOLIC ACID 8.6 4.2 - 19.9 ng/mL [facility] Blood 05/08/2024 10:2 8 AM EST 05/08/2024 10:37 AM EST Flor Fuller [facility] LAB BLOOD BKR ORDERABLES F inal Result Performing Organization Address [facility]/ZIP Co de Phone Number [address] [address] * Iron and iron binding capacity (05/08/2024 10:28 AM EST) IRON 121 30 - 160 ug/dL [facility] IRON BINDING CAPACITY 285 228 - 428 ug/dL [facility] TRANSFERRIN SATURAT. 42 15 - 50 % [facility] Blood 05/08/2024 10:2 8 AM EST 05/08/2024 10:37 AM EST Flor Fuller [facility] LAB BLOOD BKR ORDERABLES F inal Result Performing Organization Address [facility] Co de Phone Number [address] [address] * LFTs (hepatic panel) (05/08/2024 10:28 AM EST) Pathologist [facility] ALKALINE PHOSPHATASE 65 39 - 117 U/L [facility] TOTAL BILIRUBIN 0.7 0.0 - 1.2 mg/dL [facility] DIRECT BILIRUBIN <0.2 0 - 0.3 mg/dL [facility] Bilirubin (Indirect) NOT CALCULATED 0 - 1.5 mg/dL [facility] AST 33 0 - 37 U/L [facility] ALT 22 0 - 40 U/L [facility] TOTAL PROTEIN 7.5 6.5 - 8.0 g/dL [facility] ALBUMIN 4.3 3.9 - 4.8 g/dL [facility] GLOBULIN 3.2 1 - 4.8 g/dL [facility] A/G Ratio 1.34 1.00 - 4.80 RATIO [facility] Blood 05/08/2024 10:2 8 AM EST 05/08/2024 10:37 AM EST Flor Fuller [facility] LAB BLOOD BKR ORDERABLES F inal Result Performing Organization Address [facility]/ZIP Co de Phone Number [address] [address] * (ABNORMAL) CBC and differential (05/08/2024 10:28 AM EST) WBC 3.68(L) 4.00 - 11.00 K/uL [facility] RBC 4.45 4.00 - 5.20 M/uL [facility] HGB 15.1 12.0 - 16.0 g/dL [facility] HCT 43.7 36.0 - 46.0 % [facility] PLT 170 150 - 450 K/uL [facility] MCV 98.2 80.0 - 100.0 fL [facility] MCH 33.9(H) 27.0 - 31.0 pg [facility] MCHC 34.6 32.0 - 36.0 g/dL [facility] RDW 12.1 11.5 - 14.5 % [facility] MPV 10.1 8.4 - 12.0 fL [facility] NRBC 0.00 0.00 /100 WBCs [facility] ABSOLUTE NRBC 0.00 0.00 K/uL [facility] DIFF METHOD Auto [facility] NEUTS 66.3 48.0 - 76.0 % [facility] LYMPHS 23.4 18.0 - 41.0 % [facility] MONOS 7.6 4.0 - 11.0 % [facility] EOS 2.2 0.0 - 5.0 % [facility] BASOS 0.5 0.0 - 1.5 % [facility] Granulocytes, immature (%) 0.0 0.0 - 0.9 % [facility] ABSOLUTE NEUTS 2.44 1.92 - 7.60 K/uL [facility] ABSOLUTE LYMPHS 0.86 0.72 - 4.10 K/uL [facility] ABSOLUTE MONOS 0.28 0.16 - 1.10 K/uL [facility] ABSOLUTE EOS 0.08 0.00 - 0.50 K/uL [facility] ABSOLUTE BASOS 0.02 0.00 - 0.15 K/uL [facility] Granulocytes, immature 0.00 0.00 - 0.09 K/uL [facility] Blood 05/08/2024 10:2 8 AM EST 05/08/2024 10:37 AM EST us Flor Fuller [facility] LAB BLOOD BKR ORDERABLES F inal Result [address] [address] * Liver fibrosis test (05/08/2024 10:28 AM EST) Fibrosis score 0.40 [facility] Interpretation (Fibrosis) SEE NOTE [facility] Comment: (NOTE) minimal fibrosis Fibro Test [...] Fibrosis Grade SEE NOTE Q [facility] Comment: (NOTE) Result: F1-F2 NECROINFLAMM SCORE 0.11 Q [facility] NECROINFLAMM GRADE A0 Q [facility] NECROINFLAMM INTERP SEE NOTE [facility] Comment: (NOTE) no activity ActiTest Score [...] A2 Macroglobulin 230 106 - 279 mg/dL [facility] Haptoglobin 127 43 - 212 mg/dL [facility] Apolipoprotein A1 155 101 - 198 mg/dL [facility]/ [facility] TOTAL BILIRUBIN 0.7 0.2 - 1.2 mg/dL [facility] GGT 41 3 - 65 U/L [facility] ALT 23 6 - 29 U/L [facility] Specimen/Product ID [id number] [facility] Comments (Chemistry) SEE NOTE [facility] Comment: (NOTE) The reliability of results is dependent on compliance with the preanalytical and analytical conditions recommended by [employer]. The tests have to be deferred for: [...] The performance characteristics have been determined by [facility]. It has not been cleared or approved by the U.S. Food and Drug Administration. Performance characteristics refer to the analytical performance of the test. [employer], [employer], the associated logo, [employer] and all associated [employer] reyes are the registered trademarks of [employer]. All third republican reyes - (R) and (TM) - are the property of their respective owners. (C) 8313-9694 [employer]. All rights reserved. Blood 05/08/2024 10:2 8 AM EST 05/08/2024 10:37 AM EST Flor Fuller CNP LAB BLOOD BKR ORDERABLES F inal Result [facility] [address] [place] [address], [facility] [[email or web address]] [phone] documented in this encounter Visit Diagnoses Diagnosis Fatty liver- Primary Other chronic nonalcoholic liver disease Iron deficiency anemia secondary to blood loss (chronic) Nonspecific abnormal results of liver function study documented in this encounter Care Teams Players Assistant Relationship Specialty Start Date End Date Jacquelin Long MD [email or web address] PCP - General Family Medicine 10/15/23 08/12/24 Greg Castaneda DO [address] [place] [address] PCP - General Internal Medicine 08/13/24 09/18/24 Meagan Bowers MD [address] [place] [address] [email or web address] PCP - General Family Medicine 09/19/24 documented as of this encounter Additional Source Comments The information contained in this document represents components of the legal health record. It is not the complete legal health record.[facility]
--- OUTSIDE RECORDS SUMMARY | 2025-06-01 14:29 | XMS_ITS | Encounter Summary ---
Author Organization [facility] Address [address] [place] [address] [place] [address] Phone Care Team Providers Care Sponge Clipper Name Role Phone Jacquelin Long MD Primary Care Provider + Greg Castaneda DO Primary Care Provider [phone] Meagan Bowers MD Primary Care Provider Encounter Details Date Type Department Care Team (Late st Contact Info) Description 10/15/2023 Ophth Exam DEDE Consult from [address] [address] Yared Epstein MD [address] [place] [address] [email or web address] Social History Tobacco Use [...] Info) Description 10/09/2025 1:00 PM EDT Appointment [facility], Bone [address] [address] Meagan Bowers MD [address] [place] [address] documented as of this encounter Visit Diagnoses Not on filedocumented in this encounter Additional Health Concerns Infection Onset Date Last Indicated Resolved Time CoV-Risk 01/25/2024 01/25/2024 02/05/2024 1:22 AM EDT documented as of this encounter Care Teams Sponge Clipper Relationship Specialty Start Date End Date Jacquelin Long MD [email or web address] PCP - General Family Medicine 10/15/23 08/12/24 Greg Castaneda DO [address] [place] [address] PCP - General Internal Medicine 08/13/24 09/18/24 Meagan Bowers MD [address] [place] [address] PCP - General Family Medicine 09/19/24 documented as of this encounter Additional Source Comments The information contained in this document represents components of the legal health record. It is not the complete legal health record.[facility]
--- OUTSIDE RECORDS SUMMARY | 2025-06-01 14:29 | XMS_ITS | Encounter Summary ---
Author Organization [facility] Address [address] [place] [address] Phone Care Team Providers Care Diesel Technology Instructor Name Role Phone Laurie Estrada DO Primary Care Provider [phone] Laurie Estrada DO Unavailable [phone] Jacquelin Long MD Primary Care Provider + Greg Castaneda DO Primary Care Provider Meagan Bowers MD Primary Care Provider Encounter Details Date Type Department Care Team (Latest Contact Info) Description 01/20/2019 Transcribe Orders Virtual Department [address] [place] [address] Laurie Estrada DO [address] [place] [address] [email or web address] Intra-abdominal and pelvic swelling, mass and [...] Info) Description 10/09/2025 1:00 PM EDT Appointment [facility], Bone Density - [facility] [address] [place] [address] Meagan Bowers MD [address] [place] [address] documented as of this encounter Visit Diagnoses Diagnosis Intra-abdominal and pelvic swelling, mass and lump, unspecified site- Primary documented in this encounter Additional Health Concerns Infection Onset Date Last Indicated Resolved Time CoV-Risk 01/25/2024 01/25/2024 02/05/2024 1:22 AM EDT documented as of this encounter Care Teams Diesel Technology Instructor Relationship Specialty Start Date End Date Laurie Estrada DO [address] [place] [address] PCP - General Internal Medicine 12/24/16 10/14/23 Jacquelin Long MD [address] [place] [address] [email or web address] PCP - General Family Medicine 10/15/23 08/12/24 Greg Castaneda DO [address] [place] [address] PCP - General Internal Medicine 08/13/24 09/18/24 Meagan Bowers MD [address] [place] [address] PCP - General Family Medicine 09/19/24 Laurie Estrada DO [address] [place] [address] Insurance Assigned Provider 10/05/17 02/07/19 documented as of this encounter Additional Source Comments The information contained in this document represents components of the legal health record. It is not the complete legal health record.[facility]
--- OUTSIDE RECORDS SUMMARY | 2025-06-01 14:29 | XMS_ITS | Encounter Summary ---
Author Organization [facility] Address [address] [place] [address] Phone Care Team Providers Care Rail Flaw Detector Operator Name Role Phone Jacquelin Long MD Primary Care Provider + Greg Castaneda DO Primary Care Provider [phone] Meagan Bowers MD Primary Care Provider Encounter Details Date Type Department Care Team (Late st Contact Info) Description 12/29/2023 Procedure Pass [facility] Endoscopy Admitting Dept Virtual Department [address] [place], [place] [phone] Social History Tobacco Use Types Packs/Day Years [...] Info) Description 10/09/2025 1:00 PM EDT Appointment [facility], Bone Density [address] [address] Meagan Bowers MD [address] [place] [address] [email or web address] documented as of this encounter Visit Diagnoses Not on filedocumented in this encounter Additional Health Concerns Infection Onset Date Last Indicated Resolved Time CoV-Risk 01/25/2024 01/25/2024 02/05/2024 1:22 AM EDT documented as of this encounter Care Teams Rail Flaw Detector Operator Relationship Specialty Start Date End Date Jacquelin Long MD [email or web address] PCP - General Family Medicine 10/15/23 08/12/24 Greg Castaneda DO [address] [place] [address] PCP - General Internal Medicine 08/13/24 09/18/24 Meagan Bowers MD [address] [place] [address] PCP - General Family Medicine 09/19/24 documented as of this encounter Additional Source Comments The information contained in this document represents components of the legal health record. It is not the complete legal health record.[facility]
--- OUTSIDE RECORDS SUMMARY | 2025-06-01 14:29 | XMS_ITS | Encounter Summary ---
Author Organization [facility] Address [address] [facility] [address] [place] [address] Phone Care Team Providers Care Steam Frame Operator Name Role Phone Meagan Bowers MD Primary Care Provider Encounter Details Date Type Department Care Team (Late st Contact Info) Description 09/21/2024 Procedure Pass [place] Admitting Dept - Virtual Department [address] [place] [address] Social History Tobacco Use Types Packs/Day Years [...] Info) Description 10/09/2025 1:00 PM EDT Appointment [facility], Bone Density - [address] [address] Meagan Bowers MD [address] [place] [phone] documented as of this encounter Visit Diagnoses Not on filedocumented in this encounter Care Teams Steam Frame Operator Relationship Specialty Start Date End Date Meagan Bowers MD [address] [place] [address] [email or web address] PCP - General Family Medicine 09/19/24 documented as of this encounter Additional Source Comments The information contained in this document represents components of the legal health record. It is not the complete legal health record.[facility]
--- OUTSIDE RECORDS SUMMARY | 2025-06-01 14:29 | XMS_ITS | Encounter Summary ---
Author Organization [facility] Address [address] [place] [address] Phone Care Team Providers Care Radiological Technician Name Role Phone Laurie Estrada DO Primary Care Provider [phone] Laurie Estrada DO Unavailable [phone] Jacquelin Long MD Primary Care Provider + Greg Castaneda DO Primary Care Provider Meagan Bowers MD Primary Care Provider Encounter Details Date Type Department Care Team (Late st Contact Info) Description 01/30/2019 Procedure Pass [facility] Endoscopy Department [address] [place] [address] Social History Tobacco Use Types Packs/Day Years [...] Info) Description 10/09/2025 1:00 PM EDT Appointment [facility], Bone Density - [address] [address] Meagan Bowers MD [address] [place] [address] [email or web address] documented as of this encounter Visit Diagnoses Not on filedocumented in this encounter Additional Health Concerns Infection Onset Date Last Indicated Resolved Time CoV-Risk 01/25/2024 01/25/2024 02/05/2024 1:22 AM EDT documented as of this encounter Care Teams Radiological Technician Relationship Specialty Start Date End Date Laurie Estrada DO [address] [place] [address] PCP - General Internal Medicine 12/24/16 10/14/23 Jacquelin Long MD [address] [place] [address] [email or web address] PCP - General Family Medicine 10/15/23 08/12/24 Greg Castaneda DO [address] [place] [address] PCP - General Internal Medicine 08/13/24 09/18/24 Meagan Bowers MD [address] [place] [address] [email or web address] PCP - General Family Medicine 09/19/24 Laurie Estrada DO [address] [place] [address] Insurance Assigned Provider 10/05/17 02/07/19 documented as of this encounter Additional Source Comments The information contained in this document represents components of the legal health record. It is not the complete legal health record.[facility]
--- OUTSIDE RECORDS SUMMARY | 2025-06-01 14:29 | XMS_ITS | Encounter Summary ---
Author Organization [facility] Address [address] [facility] [address] [place] [address] Phone Care Team Providers Care Valet Service Attendant Name Role Phone Jacquelin Long MD Primary Care Provider + Grge Castaneda DO Primary Care Provider [phone] Meagan Bowers MD Primary Care Provider Encounter Details Date Type Department Care Team (Late st Contact Info) Description 12/28/2023 Procedure Pass [facility] Endoscopy Admitting Dept Virtual Department [address] [place], [place] [phone] Social History Tobacco Use Types Packs/Day Years [...] Info) Description 10/09/2025 1:00 PM EDT Appointment [facility], Bone Density [address] [address] Meagan Bowers MD [address] [place] [address] [email or web address] documented as of this encounter Visit Diagnoses Not on filedocumented in this encounter Additional Health Concerns Infection Onset Date Last Indicated Resolved Time CoV-Risk 01/25/2024 01/25/2024 02/05/2024 1:22 AM EDT documented as of this encounter Care Teams Valet Service Attendant Relationship Specialty Start Date End Date Jacquelin Long MD [email or web address] PCP - General Family Medicine 10/15/23 08/12/24 Greg Castaneda DO [address] [place] [address] PCP - General Internal Medicine 08/13/24 09/18/24 Meagan Bowers MD [address] [place] [address] PCP - General Family Medicine 09/19/24 documented as of this encounter Additional Source Comments The information contained in this document represents components of the legal health record. It is not the complete legal health record.[facility]
--- OUTSIDE RECORDS SUMMARY | 2025-06-01 14:29 | XMS_ITS | Encounter Summary ---
Author Organization [facility] Address [address] [place] [address] Phone Care Team Providers Care Conference Producer Name Role Phone Laurie Estrada DO Primary Care Provider [phone] Laurie Estrada DO Unavailable [phone] Jacquelin Long MD Primary Care Provider + Greg Castaneda DO Primary Care Provider Meagan Bowers MD Primary Care Provider Encounter Details Date Type Department Care Team (Late st Contact Info) Description 01/21/2019 Procedure Pass [facility] Endoscopy Admitting Dept Virtual Department [address] [place], [place] [phone] Social History Tobacco Use Types Packs/Day Years [...] Info) Description 10/09/2025 1:00 PM EDT Appointment [facility] D[facility] - [facility] [address] [place] [address] Meagan Bowers MD [address] [place] [address] [email or web address] documented as of this encounter Visit Diagnoses Not on filedocumented in this encounter Additional Health Concerns Infection Onset Date Last Indicated Resolved Time CoV-Risk 01/25/2024 01/25/2024 02/05/2024 1:22 AM EDT documented as of this encounter Care Teams Conference Producer Relationship Specialty Start Date End Date Laurie Estrada DO [address] [place] [address] PCP - General Internal Medicine 12/24/16 10/14/23 Jacquelin Long MD [address] [place] [address] [email or web address] PCP - General Family Medicine 10/15/23 08/12/24 Greg Castaneda DO [address] [place] [address] PCP - General Internal Medicine 08/13/24 09/18/24 Meagan Bowers MD [address] [place] [address] [email or web address] PCP - General Family Medicine 09/19/24 Laurie Estrada DO [address] [place] [address] Insurance Assigned Provider 10/05/17 02/07/19 documented as of this encounter Additional Source Comments The information contained in this document represents components of the legal health record. It is not the complete legal health record.[facility]
--- OUTSIDE RECORDS SUMMARY | 2025-06-01 14:29 | XMS_ITS | Encounter Summary ---
Author Organization [facility] Address [address] [place] [address] Phone Care Team Providers Care Crew Person Name Role Phone Laurie Estrada DO Primary Care Provider [phone] Laurie Estrada DO Unavailable Jacquelin Long MD Primary Care Provider + Greg Castaneda DO Primary Care Provider Meagan Bowers MD Primary Care Provider [phone] Encounter Details Date Type Department Care Team (Latest Contact Info) Description 12/30/2017 Transcribe Orders [facility] Phleb Lisbeth [address] [place], [place] [phone] Bolivar Arteaga MD [address] [phone] Hx of colonic polyps (Primary Dx) Social [...] Info) Description 10/09/2025 1:00 PM EDT Appointment [facility], [facility] - [place] [facility] [address] [place] [address] Meagan Bowers MD [address] [place] [address] [email or web address] documented as of this encounter Visit Diagnoses Diagnosis Hx of colonic polyps- Primary Personal history of colonic polyps documented in this encounter Additional Health Concerns Infection Onset Date Last Indicated Resolved Time CoV-Risk 01/25/2024 01/25/2024 02/05/2024 1:22 AM EDT documented as of this encounter Care Teams Crew Person Relationship Specialty Start Date End Date Laurie Estrada DO [address] [place] [phone] PCP - General Internal Medicine 12/24/16 10/14/23 Jacquelin Long MD [address] [place] [phone] [email or web address] PCP - General Family Medicine 10/15/23 08/12/24 Greg Castaneda DO [address] [place] [phone] PCP - General Internal Medicine 08/13/24 09/18/24 Meagan Bowers MD [address] [place] [address] [email or web address] PCP - General Family Medicine 09/19/24 Laurie Estrada DO [address] [place] [phone] Insurance Assigned Provider 10/05/17 02/07/19 documented as of this encounter Additional Source Comments The information contained in this document represents components of the legal health record. It is not the complete legal health record.[facility]
--- OUTSIDE RECORDS SUMMARY | 2025-06-01 14:29 | XMS_ITS | Encounter Summary ---
Author Organization [facility] Address [address] [place] [address] Phone Care Team Providers Care Charter Driver Name Role Phone Natalie Laurie Heart DO Primary Care Provider Jacquelin Long MD Primary Care Provider + Greg Castaneda DO Primary Care Provider Meagan Bowers MD Primary Care Provider Encounter Details Date Type Department Care Team (Late st Contact Info) Description 11/24/2021 Procedure Pass [facility] Endoscopy Admitting Dept Virtual Department [address] [place] [phone] Social History Tobacco Use Types Packs/Day [...] Encounters Date Type Department Care Team (Late Contact Info) Description 10/09/2025 1:00 PM EDT Appointment [facility], [facility] [address] [place] [address] Meagan Bowers MD [address] [place] [address] [email or web address] documented as of this encounter Visit Diagnoses Not on filedocumented in this encounter Additional Health Concerns Infection Onset Date Last Indicated Resolved Time CoV-Risk 01/25/2024 01/25/2024 02/05/2024 1:22 AM EDT documented as of this encounter Care Teams Charter Driver Relationship Specialty Start Date End Date Laurie Estrada DO [address] [place] [phone] PCP - General Internal Medicine 12/24/16 10/14/23 Jacquelin Long MD [address] [place] [phone] [email or web address] PCP - General Family Medicine 10/15/23 08/12/24 Greg Castaneda DO [address] [place] [address] PCP - General Internal Medicine 08/13/24 09/18/24 Meagan Bowers MD [address] [place] [address] [email or web address] PCP - General Family Medicine 09/19/24 documented as of this encounter Additional Source Comments The information contained in this document represents components of the legal health record. It is not the complete legal health record.[facility]
--- OUTSIDE RECORDS SUMMARY | 2025-06-01 14:29 | XMS_ITS | Encounter Summary ---
Author Organization [facility] Address [address] [facility] [address] [place] [address] Phone Care Team Providers Care Master Pilot Name Role Phone Jacquelin Long MD Primary Care Provider + Greg Castaneda DO Primary Care Provider Meagan Bowers MD Primary Care Provider Encounter Details Date Type Department Care Team (Latest Contact Info) Description 07/31/2024 Transcribe Orders [facility] Phleb Lisbeth [address] [place] [address] [phone] Flor Fuller CNP [address] [place] [address] [phone] [email or web address] Fatty liver (Primary Dx); Nonspecific abnormal results [...] Info) Description 10/09/2025 1:00 PM EDT Appointment [facility], Bone Density [address] [address] Meagan Bowers MD [address] [place] [address] [phone] [email or web address] documented as of this encounter Results * Phosphatidylethanol (07/31/2024 10:25 AM EST) Pathologist [facility] PEt 16:0/18:1 (POPEth) by LC-MS/MS <10 Cutoff: 10 ng/mL [facility] [place] Comment: [...] (PLPEth) by LC-MS/MS <10 Cutoff: 10 ng/mL [facility] [place] Comment: (NOTE) PEth 16:0/18:2 (PLPEth) Reference ranges are not well established PEth Interpretation Negative. [facility] [place] Comment: [...] 07/31/2024 10:34 AM EST us Flor Fuller [facility] BLOOD BKR ORDERABLES F inal Result [facility] [place] [address] [place] [address] * (ABNORMAL) Vitamin B12 (07/31/2024 10:25 AM EST) Pathologist [facility] VITAMIN B12 1,563(H) 232 - 1,245 pg/mL [facility] Blood 07/31/2024 10:2 5 AM EST 07/31/2024 10:33 AM EST Flor Fuller [facility] LAB BLOOD BKR ORDERABLES F inal Result Performing Organization Address [facility] Co de Phone Number [address] [address] * PT-INR (07/31/2024 10:25 AM EST) PT 10.4 10.2 - 12.9 sec [facility] INR 0.9 0.9 - 1.1 [facility] Comment:Therapeutic range fo r oral Vitamin K antagonists: 2.0-3.5 Blood 07/31/2024 10:2 5 AM EST 07/31/2024 10:33 AM EST Flor Fuller [facility] LAB BLOOD BKR ORDERABLES F inal Result Performing Organization Address [facility] de Phone Number [address] [address] * (ABNORMAL) Ferritin (07/31/2024 10:25 AM EST) FERRITIN 403(H) 13 - 150 ug/L [facility] Blood 07/31/2024 10:2 5 AM EST 07/31/2024 10:33 AM EST Flor Fuller [facility] LAB BLOOD BKR ORDERABLES F inal Result Performing Organization Address [facility] de Phone Number [address] [address] * (ABNORMAL) Folate (07/31/2024 10:25 AM EST) FOLIC ACID >20.0(H) 4.2 - 19.9 ng/mL [facility] Blood 07/31/2024 10:2 5 AM EST 07/31/2024 10:33 AM EST Flor Fuller [facility] LAB BLOOD BKR ORDERABLES F inal Result Performing Organization Address City/[facility]/ZIP Co de Phone Number [address] [address] * (ABNORMAL) Iron and iron binding capacity (07/31/2024 10:25 AM EST) IRON 155 30 - 160 ug/dL [facility] IRON BINDING CAPACITY 241 228 - 428 ug/dL [facility] TRANSFERRIN SATURAT. 64(H) 15 - 50 % [facility] Blood 07/31/2024 10:2 5 AM EST 07/31/2024 10:33 AM EST Flor Fuller [facility] LAB BLOOD BKR ORDERABLES F inal Result Performing Organization Address [facility] Co de Phone Number [address] [address] * LFTs (hepatic panel) (07/31/2024 10:25 AM EST) ALKALINE PHOSPHATASE 96 39 - 117 U/L [facility] TOTAL BILIRUBIN 0.6 0.0 - 1.2 mg/dL [facility] DIRECT BILIRUBIN 0.2 0.0 - 0.2 mg/dL [facility] Bilirubin (Indirect) 0.4 0 - 1.5 mg/dL [facility] AST 36 0 - 37 U/L [facility] ALT 33 0 - 40 U/L [facility] TOTAL PROTEIN 7.7 6.5 - 8.0 g/dL [facility] ALBUMIN 4.0 3.9 - 4.8 g/dL [facility] GLOBULIN 3.7 1 - 4.8 g/dL [facility] A/G Ratio 1.08 1.00 - 4.80 RATIO [facility] Blood 07/31/2024 10:2 5 AM EST 07/31/2024 10:33 AM EST Flor Fuller [facility] LAB BLOOD BKR ORDERABLES F inal Result Performing Organization Address City/[facility]/ZIP Co de Phone Number [address] [address] * (ABNORMAL) Liver fibrosis test (07/31/2024 10:25 AM EST) Fibrosis score 0.43 [facility] Interpretation (Fibrosis) SEE NOTE [facility] Comment: (NOTE) minimal fibrosis Fibro Test [...] Fibrosis Grade SEE NOTE [facility] Comment: (NOTE) Result: F1-F2 NECROINFLAMM SCORE 0.20 Q [facility] NECROINFLAMM GRADE SEE NOTE Q [facility] Comment: (NOTE) Result: A0-A1 NECROINFLAMM INTERP SEE NOTE [facility] Comment: (NOTE) no activity [employer] Score [...] A2 Macroglobulin 285(H) 106 - 279 mg/dL [facility] Haptoglobin 123 43 - 212 mg/dL [facility] Apolipoprotein A1 140 101 - 198 mg/dL [facility] TOTAL BILIRUBIN 0.5 0.2 - 1.2 mg/dL [facility] GGT 24 3 - 65 U/L [facility] ALT 33(H) 6 - 29 U/L [facility] Specimen/Product ID [id number] [facility] Comments (Chemistry) SEE NOTE [facility] Comment: (NOTE) The reliability of results is dependent on compliance with the preanalytical and analytical conditions recommended by [employer]. The tests have to be deferred for: [...] The performance characteristics have been determined by [employer], [place]. It has not been cleared or approved by the U.S. Food and Drug Administration. Performance characteristics refer to the analytical performance of the test. [employer], the associated logo, [employer] and all associated [employer] reyes are the registered trademarks of [employer]. All third constitution party reyes - (R) and (TM) - are the property of their respective owners. (C) [id number] [employer]. All rights reserved. Blood 07/31/2024 10:2 5 AM EST 07/31/2024 10:34 AM EST us Flor Fuller DELIVERY DRIVER LAB BLOOD BKR ORDERABLES F inal Result [facility] [facility] [address] [place] [address], [facility] [phone] * (ABNORMAL) CBC and differential (07/31/2024 10:25 AM EST) WBC 5.34 4.00 - 11.00 K/uL [facility] RBC 4.67 4.00 - 5.20 M/uL [facility] HGB 14.6 12.0 - 16.0 g/dL [facility] HCT 41.8 36.0 - 46.0 % [facility] PLT 211 150 - 450 K/uL [facility] MCV 89.5 80.0 - 100.0 fL [facility] MCH 31.3(H) 27.0 - 31.0 pg [facility] MCHC 34.9 32.0 - 36.0 g/dL [facility] RDW 12.8 11.5 - 14.5 % [facility] MPV 10.1 8.4 - 12.0 fL [facility] NRBC 0.00 0.00 /100 WBCs [facility] ABSOLUTE NRBC 0.00 0.00 K/uL [facility] DIFF METHOD Auto [facility] NEUTS 68.4 48.0 - 76.0 % [facility] LYMPHS 24.9 18.0 - 41.0 % [facility] MONOS 5.4 4.0 - 11.0 % [facility] EOS 0.4 0.0 - 5.0 % [facility] BASOS 0.7 0.0 - 1.5 % [facility] Granulocytes, immature (%) 0.2 0.0 - 0.9 % [facility] ABSOLUTE NEUTS 3.65 1.92 - 7.60 K/uL [facility] ABSOLUTE LYMPHS 1.33 0.72 - 4.10 K/uL [facility] ABSOLUTE MONOS 0.29 0.16 - 1.10 K/uL [facility] ABSOLUTE EOS 0.02 0.00 - 0.50 K/uL [facility] ABSOLUTE BASOS 0.04 0.00 - 0.15 K/uL [facility] Granulocytes, immature 0.01 0.00 - 0.09 K/uL [facility] Blood 07/31/2024 10:2 5 AM EST 07/31/2024 10:33 AM EST us Flor Fuller DELIVERY DRIVER LAB BLOOD BKR ORDERABLES F inal Result [facility] [address] [place] [address] documented in this encounter Visit Diagnoses Diagnosis Fatty liver- Primary Other chronic nonalcoholic liver disease Nonspecific abnormal results of liver function study Iron deficiency anemia secondary to blood loss (chronic) documented in this encounter Care Teams Master Pilot Relationship Specialty Start Date End Date Jacquelin Long MD [email or web address] PCP - General Family Medicine 10/15/23 08/12/24 Greg Castaneda DO [address] [place] [address] PCP - General Internal Medicine 08/13/24 09/18/24 Meagan Bowers MD [address] [place] [address] [email or web address] PCP - General Family Medicine 09/19/24 documented as of this encounter Additional Source Comments The information contained in this document represents components of the legal health record. It is not the complete legal health record.[facility]
--- OUTSIDE RECORDS SUMMARY | 2025-06-01 14:29 | XMS_ITS | Encounter Summary ---
Author Organization [facility] Address [address] [facility] [address] [place] [address] Phone Care Team Providers Care Payroll Assistant Name Role Phone Meagan Bowers MD Primary Care Provider [phone] Encounter Details Date Type Department Care Team (Latest Contact Info) Description 04/22/2025 Transcribe Orders Virtual Department [address] [place] [address] Meagan Bowers MD [address] [place], [place] [phone] [email or web address] Asymptomatic menopausal state (Primary Dx) Social [...] [facility], Bone Density - [address] [address] Meagan Bowers MD [address] [place] [address] [email or web address] Scheduled Orders Name Type Priority Associated Diagnoses Orde r Schedule DXA Screening Imaging Routine Asymptomatic menopausal state Expected: 04/22/2025, Expires: 04/22/2026 documented as of this encounter Visit Diagnoses Diagnosis Asymptomatic menopausal state- Primary documented in this encounter Care Teams Payroll Assistant Relationship Specialty Start Date End Date Meagan Bowers MD [address] [place] [address] [email or web address] PCP - General Family Medicine 09/19/24 documented as of this encounter Additional Source Comments The information contained in this document represents components of the legal health record. It is not the complete legal health record.[facility]
== END 2025-06-01 11:41 | disposition home or self-care (01) ==
LOC: HO.HOS 10:45
PROVIDERS: Visit Provider Orthopaedic Surgery
DX: M65.312 Trigger thumb, left thumb (principal); G56.03 Carpal tunnel syndrome, bilateral upper limbs; G56.23 Lesion of ulnar nerve, bilateral upper limbs; M65.311 Trigger thumb, right thumb; E11.9 Type 2 diabetes mellitus without complications
CPT/HCPCS: 99214

== ENCOUNTER → 2025-06-01 10:45 | Outpatient (BNVA) | payer MEDICARE, BC, SELFPAY | PROVIDERS: Visit Provider Orthopaedic Surgery | DX: M65.312 Trigger thumb, left thumb (principal); M65.311 Trigger thumb, right thumb; G56.23 Lesion of ulnar nerve, bilateral upper limbs; G56.03 Carpal tunnel syndrome, bilateral upper limbs; E11.9 Type 2 diabetes mellitus without complications | CPT/HCPCS: 99212 ==